=== PATIENT | female | born 2000 | race Caucasian/White ===

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

== ENCOUNTER 2020-04-10 17:25 | Emergency (ER) | payer MEDICAID, SELFPAY ==
[2020-04-10 18:05] VITALS: BP 104/57; PULSE 74; RESP 16; TEMP 36.9; O2SAT 99; BMI 18.8
[2020-04-10 18:40] LABS: Basophils # 0.1 10^3/uL (0.0-0.1); Basophils % 0.4 %; Eosinophils # 0.1 10^3/uL (0.0-0.8); Eosinophils % 0.7 %; Hematocrit 39.3 % (37.0-47.0); Hemoglobin 13.1 g/dL (11.5-15.3); Lymphocytes # 2.3 10^3/uL (1.5-6.5); Lymphocytes % 18.5 %; Mean Corpuscular HGB Conc 33.3 g/dL (30.0-36.0); Mean Corpuscular Hemoglobin 28.2 pg (28.0-34.0); Mean Corpuscular Volume 84.5 fL (81-99); Mean Platelet Volume 10.7 fL (7.4-10.4); Monocytes # 1.2 10^3/uL (0.2-0.9); Monocytes % 9.5 %; Neutrophils % 70.4 %; Nucleated Red Blood Cells % 0 %; Platelet Count 222 10^3/cmm (130-400); Red Blood Count 4.65 10^6/uL (4.1-5.3); Red Cell Distribution Width 11.9 % (12.1-15.1); White Blood Count 12.5 10^3/uL (4.5-13.0)
--- NOTE | 2020-04-10 18:41 | US_ITS ---
WS: [id number] EARLY OBSTETRICAL ULTRASOUND (<14 WEEKS). HISTORY: with abd pain COMPARISON: None available. Single intrauterine gestational sac is identified. Cardiac activity at 167 BPM. [place]-rump length dejuan sures 1.9 cm which corresponds to a gestation of 8 weeks 3 days. Normal-appearing yolk sac and amnion demonstrated. No subchorionic hemorrhage. No free fluid. Normal size ovaries with no mass. US/US OB <= 14 weeks fetus [id number] IMPRESSION: 1. Single intrauterine gestation of 8 weeks 3 days with an EDC of 11/17/2020. 2. No complications.
[2020-04-10 19:19] LABS: Alanine Aminotransferase 11 U/L (0-33); Albumin Level 4.2 g/dL (3.5-5.2); Alkaline Phosphatase 37 IU/L (35-105); Anion Gap 12.1 (5-19); Aspartate Amino Transferase 16 U/L (0-32); Blood Urea Nitrogen 8 mg/dL (6-20); Calcium 9.2 mg/dL (8.5-10.5); Carbon Dioxide 23 mmol/L (22-29); Chloride 101 mmol/L (98-107); Globulin 2.6 g/dL (1.3-4.6); Glomerular Filtration Rate 128.8 mL/min (90-130); Glucose 107 mg/dL (65-115); Osmolality Calculated 272 mOsm/kg (285-295); Potassium 3.1 mmol/L (3.5-5.1); Sodium 133 mmol/L (136-145); Total Bilirubin 0.3 mg/dL (0.15-1.2); Total Protein 6.8 g/dL (6.6-8.7)
--- NOTE | 2020-04-10 20:06 | ED_ITS ---
HPI - Abdominal Pain General: Chief Complaint: Abdominal Pain Stated Complaint: abd pain/preg Time Seen by Provider: 04/10/20 19:59 History of Present Illness: HPI narrative: This patient is a 19-year-old female who comes in with her first . She took some home tests which were positive and also had a confirmed at the [facility] department. She does not know how far along she is but her last period was sometime in February. She came in today because she is having some discomfort on her flanks. She has had no bleeding, no vaginal discharge, no urinary symptoms. She has had some nausea and vomiting off and on. MD elicited complaint: flank pain Pertinent past history: none Onset (ago): day(s) (3) Pain Consistency: intermittent Location: L flank and R flank Severity: mild Quality: aching Associated Symptoms: Reports nausea and vomiting Related Data: Date of Last Menstrual Period: 02/14/20 Review of Systems General: Reports: 10 or more systems reviewed and unremarkable except in HPI and below GI: Reports: abdominal pain, nausea and vomiting : Reports: amenorrhea PFS ED PFSH: Social History Smoking and tobacco status: never smoked Female Reproductive History: Date of last menstrual period: 02/14/20 Physical Exam Const: COMMON NORMALS: no acute distress, patient oriented x3, no limitations and alert GENERAL APPEARANCE: cooperative and comfortable HENMT: HEAD & SCALP: normal to inspection FACE & SINUS: normal facial exam Eye: GENERAL EYE: appearance normal, both eyes and all related structures Neck/C-Spine: COMMON NORMALS: supple, no meningeal signs and no JVD Chest: COMMONS NORMALS: normal inspection of the chest Resp: COMMON NORMALS: normal respiratory effort, No use of accessory muscles and clear to auscultation bilaterally AUSCULTATION: clear to auscultation bilaterally Cardio: COMMON NORMALS: no JVD, regular rate, regular rhythm and No murmurs present (Cardio) RATE: regular rate RHYTHM: regular rhythm GI: COMMON NORMALS: Normal to inspection, nondistended, normoactive bowel sounds present, Soft to palpation and non-tender INSPECTION: Yes normal to inspection AUSCULTATION: Yes normoactive bowel sounds PALPATION: Yes Soft to palpation Back/Pelvis: COMMON NORMALS: thoracic and lumbar spine normal to inspection Extremity: COMMON NORMALS: normal to inspection Neuro: COMMON NORMALS: patient oriented x3, moves all extremities, no focal motor deficits and no sensory deficits noted SENSORIUM/ORIENTATION: Yes alert MENINGEAL SIGNS: Yes no meningeal signs Psych: COMMON NORMALS: mental status grossly normal, cooperative and normal affect Skin: COMMON NORMALS: no rashes or lesions noted and turgor normal GENERAL SKIN EXAM: no rashes or lesions noted and turgor normal Course ED course: Work-up is negative. Blood type is positive. Ultrasound shows a 8-week 3-day IUP. Patient was reassured and given OB follow-up. Vital Signs: Vital signs: Vital Signs Temperature 98.4 F 04/10/20 18:05 Pulse Rate 88 04/10/20 20:48 Respiratory Rate 18 04/10/20 20:48 Blood Pressure 107/58 04/10/20 20:48 Pulse Oximetry 98 04/10/20 20:48 MDM - Abdominal Pain Lab Data: Labs: Lab Results 04/10/20 04/10/20 04/10/20 Range/Units 18:30 18:30 18:30 WBC 12.5 (4.5-13.0) 10^3/ uL RBC 4.65 (4.1-5.3) 10^6/u L Hgb 13.1 (11.5-15.3) g/dL Hct 39.3 (37.0-47.0) % MCV 84.5 (81-99) fL MCH 28.2 (28.0-34.0) pg MCHC 33.3 (30.0-36.0) g/dL RDW 11.9 L (12.1-15.1) % Plt Count 222 (130-400) 10^3/c mm MPV 10.7 H (7.4-10.4) fL Neut % (Auto) 70.4 % Lymph % (Auto) 18.5 % [place] % (Auto) 9.5 % Eos % (Auto) 0.7 % Baso % (Auto) 0.4 % Neut # (Auto) 8.80 H (1.8-8.0) 10^3/u L Lymph # (Auto) 2.3 (1.5-6.5) 10^3/u L [place] # (Auto) 1.2 H (0.2-0.9) 10^3/u L Eos # (Auto) 0.1 (0.0-0.8) 10^3/u L Baso # (Auto) 0.1 (0.0-0.1) 10^3/u L Nucleated RBC % (a uto) 0 % Nucleated RBCs # 0.0 /100WBC Sodium 133 L (136-145) mmol/L Potassium 3.1 L (3.5-5.1) mmol/L Chloride 101 (98-107) mmol/L Carbon Dioxide 23 (22-29) mmol/L Anion Gap 12.1 (5-19) BUN 8 (6-20) mg/dL Creatinine 0.6 (0.5-0.9) mg/dL GFR Calculation 128.8 (90-130) mL/min Glucose 107 (65-115) mg/dL Calculated Osmolal ity 272 L (285-295) mOsm/k g Calcium 9.2 (8.5-10.5) mg/dL Total Bilirubin 0.3 (0.15-1.2) mg/dL AST 16 (0-32) U/L ALT 11 (0-33) U/L Alkaline Phosphata se 37 (35-105) IU/L Total Protein 6.8 (6.6-8.7) g/dL Albumin 4.2 (3.5-5.2) g/dL Globulin 2.6 (1.3-4.6) g/dL Ser , [place]Qnt 09922.00 mIU/mL Urine Color (Yellow) Urine Appearance (CLEAR) Urine pH (5-7) Ur Specific Gravit y (1.005-1.030) Urine Protein (Negative) Urine Glucose (UA) (Normal) Urine Ketones (Negative) Urine Blood (Negative) Urine Nitrate (Negative) Urine Bilirubin (NEGATIVE) Urine Urobilinogen (Negative) mg/dL Ur Leukocyte Bisi ase (Negative) Urine RBC (0-2) /hpf Urine WBC (0-5) /hpf Ur Squamous Epith Cells (0-5) Amorphous Sediment Urine Bacteria (NONE) Blood Type O Positive Rho(D) Type Positive 04/10/20 Range/Units 20:51 WBC (4.5-13.0) 10^3/ uL RBC (4.1-5.3) 10^6/u L Hgb (11.5-15.3) g/dL Hct (37.0-47.0) % MCV (81-99) fL MCH (28.0-34.0) pg MCHC (30.0-36.0) g/dL RDW (12.1-15.1) % Plt Count (130-400) 10^3/c mm MPV (7.4-10.4) fL Neut % (Auto) % Lymph % (Auto) % [place] % (Auto) % Eos % (Auto) % Baso % (Auto) % Neut # (Auto) (1.8-8.0) 10^3/u L Lymph # (Auto) (1.5-6.5) 10^3/u L [place] # (Auto) (0.2-0.9) 10^3/u L Eos # (Auto) (0.0-0.8) 10^3/u L Baso # (Auto) (0.0-0.1) 10^3/u L Nucleated RBC % (a uto) % Nucleated RBCs # /100WBC Sodium (136-145) mmol/L Potassium (3.5-5.1) mmol/L Chloride (98-107) mmol/L Carbon Dioxide (22-29) mmol/L Anion Gap (5-19) BUN (6-20) mg/dL Creatinine (0.5-0.9) mg/dL GFR Calculation (90-130) mL/min Glucose (65-115) mg/dL Calculated Osmolal ity (285-295) mOsm/k g Calcium (8.5-10.5) mg/dL Total Bilirubin (0.15-1.2) mg/dL AST (0-32) U/L ALT (0-33) U/L Alkaline Phosphata se (35-105) IU/L Total Protein (6.6-8.7) g/dL Albumin (3.5-5.2) g/dL Globulin (1.3-4.6) g/dL Ser , [place] i-Qnt mIU/mL Urine Color Yellow (Yellow) Urine Appearance Cloudy (CLEAR) Urine pH 7 (5-7) Ur Specific Gravit y 1.010 (1.005-1.030) Urine Protein Neg (Negative) Urine Glucose (UA) Norm (Normal) Urine Ketones Negative (Negative) Urine Blood Neg (Negative) Urine Nitrate Negative (Negative) Urine Bilirubin Neg (NEGATIVE) Urine Urobilinogen Norm (Negative) mg/dL Ur Leukocyte Bisi ase Negative (Negative) Urine RBC Rare (0-2) /hpf Urine WBC Rare (0-5) /hpf Ur Squamous Epith Cells 0-4 H (0-5) Amorphous Sediment 1+ Urine Bacteria 1+ H (NONE) Blood Type Rho(D) Type Discharge Plan Discharge Patient Disposition: Home Clinical Impression: Qualifiers: Weeks of gestation: 8 weeks Qualified Code(s): Z3A.08 - 8 weeks gestation of Condition: Stable Prescriptions: No Action 28 mg iron- 800 mcg Tablet 1 tab PO DAILY RF: 0 Discharge Orders: Discharge Order (Routine); Ordered 04/10/20 Ordered By: Rianna Berry Referrals: Karma Avila MD [Primary Care Provider] - Fernando Barreto MD [Physician] - 7-10 days Discharge Diet: Usual diet Discharge Activity: Resume usual activity Patient Instructions: (ED) Activity Restrictions/Additional Instructions: You are 8 weeks and 3 days . This makes your due date November 18, 2020. You should follow-up with the [facility] soon as possible. They typically like your first visit to be at around 8 weeks. Return to the ED if increased pain or bleeding. Continue vitamins and a healthy diet. Discharge Date/Time: 04/10/20 21:47 Coding Level of Care Code ED Induction Coordination Engineer for Logan Fwd Exam Comprehensive
[2020-04-10 20:48] VITALS: BP 107/58; PULSE 88; RESP 18; O2SAT 98
[2020-04-10 21:41] LABS: Add Urine Microscopic? YES; Amorphous Sediment Urine 1+; Bacteria Urine 1+; Bilirubin Urine Neg (NEGATIVE); Blood Urine Neg (Negative); Glucose Urine UA Norm (Normal); Ketones Urine Negative (Negative); Leukocyte Esterase Urine Negative (Negative); Nitrate Urine Negative (Negative); Protein Urine Neg (Negative); RBC Urine RARE /hpf (0-2); Squamous Epithelial Cell Urine 0-4 (0-5); Urine Appearance Cloudy (CLEAR); Urine Color Yellow (Yellow); Urobilinogen Urine Norm (Negative); WBC Urine RARE /hpf (0-5); pH Urine 7 (5-7)
== END 2020-04-10 21:47 | disposition home or self-care (01) ==
PROVIDERS: Nurse Practitioner Family; Emergency Provider Emergency Medicine; PCP Family Medicine
DX: O26.891 Other specified pregnancy related conditions, first trimester (principal); R10.9 Unspecified abdominal pain; Z3A.08 8 weeks gestation of pregnancy
CPT/HCPCS: 12345; 36415; 76801; 80053; 81001; 84702; 85025; 86900; 99282; 99283

== ENCOUNTER 2020-10-24 01:20 | Outpatient (CLI) | payer OTHER, SELFPAY ==
[2020-10-24] VITALS (25 sets, daily range): BP systolic 115–136; BP diastolic 56–76; PULSE 59–88; RESP 16–20; TEMP 36.6–36.8; BMI 23.1
[2020-10-24 02:34] LABS: Bilirubin Urine Neg (Negative); Blood Urine Neg (Negative); Glucose Urine UA Norm (Normal); Ketones Urine Negative (Negative); Nitrate Urine Negative (Negative); Protein Urine Neg (Negative); Urine Appearance Cloudy (CLEAR); Urine Color Yellow (Yellow); Urobilinogen Urine Norm (Negative); pH Urine 6.5 (5-7)
[2020-10-24 02:35] LABS: Leukocyte Esterase Urine 2+ (Negative)
[2020-10-24 02:52] LABS: Add Urine Culture? No; Bacteria Urine 3+ /hpf; RBC Urine 0-4 /hpf (0-2); Squamous Epithelial Cell Urine 25-40 /hpf (0-5); WBC Urine 40-55 /hpf (0-5)
--- NOTE | 2020-10-24 07:56 | PC.NURSE ---
Pt up to restroom. When pt returns to bed she has episode of nausea and scant yellow bile emesis. Pt reports, when the baby gets hungry I get nauseas and throw up. Pt reports she hasn't had anything to eat since 6:00 last night.
--- NOTE | 2020-10-24 08:48 | PC.NURSE ---
This nurse call prescription to [facility] pharmacy. 500 mg Keflex PO TID for 7 days; no refills.
[2020-10-24] MEDS: cephALEXin 500 mg Capsule PO (09:04)
== END 2020-10-24 09:00 | disposition home or self-care (01) ==
LOC: OPOB 01:23 → OBGYN 01:25
PROVIDERS: PCP Family Medicine; Visit Provider Family Medicine
DX: O26.899 Other specified pregnancy related conditions, unspecified trimester (principal); Z3A.00 Weeks of gestation of pregnancy not specified; R10.9 Unspecified abdominal pain
CPT/HCPCS: 59025; 81001; 99211

== ENCOUNTER 2020-10-27 00:26 | Inpatient (IN) | payer OTHER, BC, MEDICAID, SELFPAY ==
[2020-10-27] VITALS (202 sets, daily range): BP systolic 116–177; BP diastolic 60–95; PULSE 75–134; RESP 15–18; TEMP 36.7–37.1; O2SAT 92–99; BMI 23.1
[2020-10-27] MEDS: lactated ringers 1,000 ML 999 ML IV (00:48)
[2020-10-27] MEDS: ampicillin 2,000 MG in sodium chloride 0.9% (plus) 50 ML 100 MG IV (00:49)
[2020-10-27 01:31] LABS: Basophils % 0.3 %; Eosinophils # 0.1 10^3/uL (0.0-0.8); Eosinophils % 0.5 %; Hematocrit 38.8 % (37.0-47.0); Hemoglobin 12.8 g/dL (11.5-15.3); Lymphocytes # 1.7 10^3/uL (1.5-6.5); Lymphocytes % 10.8 %; Mean Corpuscular Hemoglobin 27.1 pg (28.0-34.0); Mean Platelet Volume 11.1 fL (7.4-10.4); Monocytes # 1.6 10^3/uL (0.2-0.9); Monocytes % 10.3 %; Neutrophils % 77.5 %; Nucleated Red Blood Cells % 0 %; Platelet Count 269 10^3/cmm (130-400); Red Blood Count 4.73 10^6/uL (4.1-5.3); Red Cell Distribution Width 12.3 % (12.1-15.1); White Blood Count 15.6 10^3/uL (4.5-13.0)
[2020-10-27] MEDS: fentaNYL 50 mcg/mL INJ 2mL IV ×6 (02:03→12:28)
[2020-10-27] MEDS: dextrose 5%-lactated ringers 1,000 ML 125 ML IV ×2 (02:47→11:26)
--- NOTE | 2020-10-27 03:29 | ANES.PROC ---
Anesthesia Procedures Procedure/Date: 10/27/20 LABOR EPIDURAL Procedure Narrative: HX REVIEWED WITH PATIENT, NO PERTINENT HX. RISKS AND BENEFITS DISCUSSED. PT WISHES TO PROCEED. Epidural: Time Out Performed: Yes Consents Signed: Procedure Consent Consent: from patient, risks and benefits reviewed and patient agrees to proceed Lumbar Level: L2-L3 Epidural position: sitting Epidural procedure: sterile prep of area, 1% lidocaine to numb the area, 18 g needle, neg for paresthesia, test dose given, 1.5% xylocaine 1:200k epi (3 ML), 0.2% Ropivacaine bolus ml (5ML), placed PCEA, no systemic response, sterile dressing applied, L.U.D. no apparent complications and 0.2% Ropiavacaine @ mls/hr (11)
--- NOTE | 2020-10-27 04:50 | PC.NURSE ---
Called Maren Kessler CRNA and notified that there was leaking noted under the dressing, out onto the belly band and on the bed, patient reporting that she is still getting relief from epidural at this time. FEI Kessler orders to continue to monitor for pain relief, if patient reports that she is starting to feel pain again call BUILDING ASSOCIATE back and she will come to unit to redo epidural placement.
[2020-10-27] MEDS: ampicillin 1,000 MG in sodium chloride 0.9% (plus) 50 ML 100 MG IV ×3 (04:59→12:29)
[2020-10-27] MEDS: phenazopyridine 100 mg Tablet PO ×2 (04:59→17:04)
[2020-10-27] MEDS: oxytocin 30 UNIT/500 ML BAG IV (10:28)
--- NOTE | 2020-10-27 12:53 | ANES.PROC ---
Anesthesia Procedures Procedure/Date: 10/27/20 Other Information: Called for increased pelvic pressure/discomfort. Pt 5 cm dilated. Lido 2% 5cc and 100 mcg Fentanyl given with pt expressing relief.
[2020-10-27] MEDS: ibuprofen 800 mg tablet PO ×2 (15:36→20:56)
--- NOTE | 2020-10-27 16:15 | PC.NURSE ---
pt up to bathroom with assist. void large amount(missed hat) aleshia care discussed and demonstrated. pt then back to bed
[2020-10-27] MEDS: benzocaine-menthol 78 gm Canister 1 SPRAY TOPICAL (16:23)
[2020-10-27] MEDS: docusate sodium 100 mg Capsule PO (17:04)
[2020-10-27] MEDS: HYDROcodone-acetaminophen 5-325 mg Tablet PO (17:04)
--- NOTE | 2020-10-27 17:32 | PM.DELIVERY ---
Delivery Note: Date of delivery: October 27, 2020 Pre-Delivery Course: The patient presented to the hospital the day of delivery. She is noted to have consistent contractions they are happening every 2 to 3 minutes and had had cervical change since her previous visit to the hospital. An amniotomy was performed. An epidural was placed. She progressed to complete without difficulty. She was on GBS protocol due to the gestational age of the . Delivery: DELIVERY: The patient progressed to complete without difficulty. She delivered a male with a weight of 6 pounds 1 ounce with Apgars of 8, 9. The baby was delivered from the SILVINA position. The baby was then completely delivered and placed on the mother's abdomen. The cord was then clamped and cut. There was no nuchal cord. There was no meconium. The placenta and 3 vessel cord were delivered intact shortly thereafter. The perineum and vaginal vault were carefully examined. There were some superficial vaginal lacerations noted but they did not require repair. Both the mother and the baby were in stable condition. A&P Assessment and plan (1) 36 weeks gestation of : I anticipate routine care. Status: Acute (2) Spontaneous vaginal delivery: Status: Acute Coding Level of Care Code Acute Land Examiner for Chg Fwd Diagnoses 36 weeks gestation of Z3A.36 Spontaneous vaginal delivery O80
[2020-10-27] MEDS: cephALEXin 500 mg Capsule PO (20:57)
[2020-10-28] VITALS: RESP 18; TEMP 36.4
[2020-10-28 00:12] VITALS: BP 119/59; PULSE 75
[2020-10-28 02:17] LABS: Hematocrit 32.9 % (37.0-47.0); Hemoglobin 10.8 g/dL (11.5-15.3); Mean Corpuscular HGB Conc 32.8 g/dL (30.0-36.0); Mean Corpuscular Hemoglobin 27.3 pg (28.0-34.0); Mean Corpuscular Volume 83.1 fL (81-99); Mean Platelet Volume 10.3 fL (7.4-10.4); Platelet Count 203 10^3/cmm (130-400); Red Blood Count 3.96 10^6/uL (4.1-5.3); Red Cell Distribution Width 12.5 % (12.1-15.1); White Blood Count 16.3 10^3/uL (4.5-13.0)
--- NOTE | 2020-10-28 04:02 | P.DS_ITS ---
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 An amniotomy was performed. She had an epidural placed. She progressed to complete without difficulty. Her vaginal delivery was also unremarkable. Her course has gone smoothly as well. She has had appropriate bleeding. Her pain has been well controlled. She has bottle-fed her baby. Information Peripartum Data: Infant Delivery Method: Vaginal Physical Exam Narrative: EXAM NARRATIVE: The patient is alert. She appears comfortable. Her heart has a regular rate and rhythm with no murmurs appreciated. Lungs are clear to auscultation bilaterally. Her fundus is firm and below the umbilicus. Urinary Catheter Management^: Holguin Latex: Cath Placed During This Visit: yes, but has since been removed by the nurse Reason for Continuing Indwelling Catheter: Decision to DC Catheter Urinary Catheter Date of Insertion: 10/27/20 Urinary Catheter Time of Insertion: 04:06 Date Urinary Catheter Removed: 10/27/20 Time Urinary Catheter Discontinued: 13:25 Discharge Data Data Completed and Pending: Labs from last 24 hours 10/28/20 02:09 WBC 16.3 H RBC 3.96 L Hgb 10.8 L Hct 32.9 L MCV 83.1 MCH 27.3 L MCHC 32.8 RDW 12.5 Plt Count 203 MPV 10.3 Vitals: Last Vital Signs Temp 97.5 F L 10/28/20 00:00 Pulse 75 10/28/20 00:12 Resp 18 10/28/20 00:00 BP 119/59 10/28/20 00:12 Pulse Ox 97 10/27/20 13:27 Discharge Plan Discharge Patient Disposition: Home Condition: Stable Prescriptions: New ibuprofen 800 mg Tablet 800 mg PO TID Qty: 45 RF: 0 Continued PNV cmb#95-ferrous fumarate-FA [] 28 mg iron- 800 mcg Tablet 1 tab PO DAILY RF: 0 Discharge Orders: Discharge Order (Routine); Ordered 10/28/20 Ordered By: Mark Galdamez Referrals: Mark Galdamez MD [Physician] - 6 Weeks Discharge Diet: Usual diet Discharge Activity: Limit activity as instructed Discharge Attestations 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
[2020-10-28 04:40] VITALS: BP 132/70; PULSE 75; TEMP 37.1
[2020-10-28] MEDS: HYDROcodone-acetaminophen 5-325 mg Tablet PO (06:33)
[2020-10-28] MEDS: ibuprofen 800 mg tablet PO ×2 (10:11→15:17)
[2020-10-28] MEDS: prenatal vitamin Capsule 1 CAP PO (10:11)
[2020-10-28] MEDS: cephALEXin 500 mg Capsule PO ×2 (10:11→15:17)
[2020-10-28] MEDS: docusate sodium 100 mg Capsule PO (10:11)
[2020-10-28 10:14] VITALS: BP 125/78; PULSE 90
[2020-10-28 16:30] VITALS: BP 132/78; PULSE 102
[2020-10-28 16:31] VITALS: BP 132/78; PULSE 102
== END 2020-10-28 16:32 | disposition home or self-care (01) | DRG 807 ==
LOC: OPOB 00:26 → OBGYN 00:26
PROVIDERS: Admitting Provider Family Medicine; PCP Family Medicine; Visit Provider Family Medicine
DX: O80 Encounter for full-term uncomplicated delivery (principal); Z37.0 Single live birth; Z3A.36 36 weeks gestation of pregnancy
CPT/HCPCS: 12345; 36415; 51702; 59025; 59409; 85025; 85027; 99211; J0290; J2795; J3010

== ENCOUNTER 2020-11-27 07:41 | Inpatient (IN) | payer OTHER, BC, MEDICAID, SELFPAY ==
[2020-11-27] VITALS (14 sets, daily range): BP systolic 97–128; BP diastolic 60–72; PULSE 60–118; RESP 15–20; TEMP 36.4–37.1; O2SAT 95–98; BMI 18.8
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
[2020-11-27 08:35] LABS: Basophils # 0.1 10^3/uL (0.0-0.1); Basophils % 0.4 %; Eosinophils % 0.3 %; Hematocrit 45.3 % (37.0-47.0); Hemoglobin 14.5 g/dL (11.5-15.3); Lymphocytes # 1.2 10^3/uL (1.5-6.5); Lymphocytes % 8.5 %; Mean Corpuscular Hemoglobin 26.4 pg (28.0-34.0); Mean Corpuscular Volume 82.4 fL (81-99); Mean Platelet Volume 10.8 fL (7.4-10.4); Monocytes # 0.8 10^3/uL (0.2-0.9); Monocytes % 5.6 %; Neutrophils # 11.72 10^3/uL (1.8-8.0); Neutrophils % 84.8 %; Nucleated Red Blood Cells % 0 %; Platelet Count 242 10^3/cmm (130-400); Red Cell Distribution Width 12.7 % (12.1-15.1); White Blood Count 13.8 10^3/uL (4.5-13.0)
[2020-11-27] MEDS: ondansetron 2 mg/ML SDV 2 mL 4 MG IVP ×2 (08:36→10:47)
[2020-11-27 08:48] LABS: Urine Appearance SL Hazy (CLEAR); Urine Color Yellow (Yellow)
[2020-11-27 08:49] LABS: Add Urine Microscopic? YES; Bilirubin Urine Neg (Negative); Blood Urine Neg (Negative); Glucose Urine UA Norm (Normal); Ketones Urine Negative (Negative); Leukocyte Esterase Urine 2+ (Negative); Nitrate Urine Negative (Negative); Protein Urine Trace (Negative); Urobilinogen Urine Norm (Negative); pH Urine 5 (5-7)
[2020-11-27 08:55] LABS: Alanine Aminotransferase 34 U/L (0-33); Albumin Level 4.3 g/dL (3.5-5.2); Alkaline Phosphatase 77 IU/L (35-105); Anion Gap 16.1 (5-19); Aspartate Amino Transferase 26 U/L (0-32); Blood Urea Nitrogen 10 mg/dL (6-20); Calcium 9.7 mg/dL (8.5-10.5); Carbon Dioxide 25 mmol/L (22-29); Chloride 103 mmol/L (98-107); Globulin 3.5 g/dL (1.3-4.6); Glomerular Filtration Rate 107.8 mL/min (90-130); Glucose 140 mg/dL (65-115); Lipase 17 U/L (13-60); Osmolality Calculated 291 mOsm/kg (285-295); Potassium 4.1 mmol/L (3.5-5.1); Sodium 140 mmol/L (136-145); Total Bilirubin 0.4 mg/dL (0.15-1.2); Total Protein 7.8 g/dL (6.6-8.7)
[2020-11-27 08:56] LABS: Lactic Sepsis W/Reflex 1.5 mmol/L (0.5-2.2)
[2020-11-27 08:57] LABS: Add Urine Culture? No; Bacteria Urine 2+ /hpf; Squamous Epithelial Cell Urine 25-40 /hpf (0-5); WBC Urine 25-40 /hpf (0-5)
[2020-11-27 09:49] LABS: Add Urine Microscopic? NO
[2020-11-27] MEDS: metoclopramide 5 mg/mL SDV 2 mL IVP (09:55)
[2020-11-27 09:58] LABS: Bilirubin Urine Neg (Negative); Blood Urine Neg (Negative); Glucose Urine UA Norm (Normal); Ketones Urine Negative (Negative); Leukocyte Esterase Urine Negative (Negative); Nitrate Urine Negative (Negative); Protein Urine Neg (Negative); Specific Gravity, Urine 1.015 (1.005-1.030); Urine Appearance Clear (CLEAR); Urine Color Yellow (Yellow); Urobilinogen Urine Norm (Negative); pH Urine 5 (5-7)
[2020-11-27] MEDS: lidocaine 2% viscous 15 ML, aluminum-mag hydrox-simethicon 30 ML, sucralfate oral liq 1 GM PO (10:18)
--- NOTE | 2020-11-27 10:19 | CT_ITS ---
WS: [id number] CT ABDOMEN AND PELVIS WITH CONTRAST HISTORY: abdominal pain, guarding TECHNIQUE: Imaging performed of the abdomen and pelvis with IV contrast. Single phase imaging of the abdomen. Coronal and sagittal reformats are submitted. All CT scans at [facility] use at least one of these dose optimization techniques: automated exposure control; mA and/or kV adjustment per patient size (includes targeted exams where dose is matched to clinical indication); or iterativ e reconstruction. IV CONTRAST: Omnipaque 300; 95 mL IV. Oral contrast: No DLP: 983.2 mGy.cm COMPARISON: 10/12/2016 Lower thorax: Stable area of nodularity in the medial RIGHT lower lung field. Heart is normal size. N o hiatal hernia. Liver/biliary system: Normal size with no intrahepatic dilatation. Gallbladder: Normal. No gallstones or wall thickening. No pericholecystic fluid. Pancreas: Normal. Spleen: Normal. Adrenal glands: Normal. Right kidney: Normal. Left kidney: Normal. Aorta: Normal. Lymphadenopathy: None. Free fluid: None. GI tract: Markedly dilated proximal and mid small bowel loops. Transition point in the mid small roxane l. There is twisting of the mesentery and possible of volvulus. Rotation of the central mesentery wit h focal area of significant change in caliber of the small bowel. The appendix is partially visualize d but does appear normal. Small bowel loops measure up to 3 cm. There are additional surgical clips i n the LEFT upper quadrant from prior colonic surgery. Distal colon is collapsed. Proximal colon conta ins fecal material. There is a large amount of mesenteric stranding centrally at the site of the mese nteric twisting. Abdominal wall: Unremarkable abdominal wall. No hernia. Pelvis: Slightly retroflexed uterus. Minimal amount of fluid distending the endometrium. There is a s mall RIGHT ovarian cyst measuring up to 1.8 cm. Bones: Unremarkable. CT/CT abdomen pelvis w con* [id number] IMPRESSION: 1. High-grade small bowel obstruction with a transition point in the central s mall bowel there is twisting of the mesentery with extensive mesenteric edema a nd stranding. This may be an internal hernia or volvulus. Recommend surgical ev aluation. 2. No free air at this time but there is marked distention of the small bowel. 3. There are additional surgical sutures in the LEFT upper quadrant from prior colonic surgery. 4. Normal appendix
[2020-11-27] MEDS: morphine 4 mg/mL SDV 1 mL IVP (10:47)
[2020-11-27] MEDS: iohexol 300 mg/mL 100 mL Btl IV (10:54)
--- NOTE | 2020-11-27 12:15 | PC.NURSE ---
NG tube placed in right nare. Pt tolerated well. Yellow milky white liquid in canister.
--- NOTE | 2020-11-27 12:31 | XR_ITS ---
WS: [id number] Exam: XR chest 1V portable [id number] Date/Time of Exam: 11/27/2020 12:31 PM Reason For Exam: for ng tube placement Comparison 09/11/2019. An NG tube is looped in the stomach. The tip is directed back slightly below the expected region of t he GE junction. The lungs are clear and fully expanded. Normal cardiomediastinal structures and bony elements. XR/XR chest 1V portable [id number] IMPRESSION: 1. NG tube is looped in the stomach with the tip probably just below the region of the GE junction. 2. The chest is otherwise normal.
--- NOTE | 2020-11-27 13:06 | PC.NURSE ---
Attempted to call report at this time. Told patients nurse and charge nurse was busy and unable to take report at this time. Will attempt to call again shortly.
--- NOTE | 2020-11-27 13:19 | PC.NURSE ---
Attempt to call report, was asked if she could call me back. I agreed. Jennifer VENEGAS stated she tried calling report and was not able to give report
[2020-11-27] MEDS: sodium chloride 0.9% 1,000 ML 100 ML IV (14:55)
[2020-11-27] MEDS: famotidine 20 mg/2 mL INJ IVP (15:58)
[2020-11-27] MEDS: D5-NS 0.45% + KCL 20 mEq 20 MEQ/1,000 ML BAG 100 MEQ IV (15:58)
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
[2020-11-27] MEDS: morphine 4 mg/mL SDV 1 mL 3 MG IVP (21:31)
--- NOTE | 2020-11-27 22:30 | PC.NURSE ---
Patients ng tube advanced 3 inches, hooked to low intermittent suction with immediate return of 150 ml light yellow clear fluid.
[2020-11-28] VITALS: BP 111/65; PULSE 68; RESP 18; TEMP 36.4; O2SAT 96
[2020-11-28] MEDS: D5-NS 0.45% + KCL 20 mEq 20 MEQ/1,000 ML BAG 100 MEQ IV ×2 (01:42→14:20)
[2020-11-28] MEDS: famotidine 20 mg/2 mL INJ IVP ×2 (03:24→14:21)
[2020-11-28 04:00] VITALS: BP 102/60; PULSE 81; RESP 18; TEMP 36.6; O2SAT 98
[2020-11-28] MEDS: enoxaparin 40 mg/0.4 mL Syringe SUBCUT (05:54)
--- NOTE | 2020-11-28 06:00 | XR_ITS ---
WS: [id number] Exam: XR abdomen min 2V [id number] Date/Time of Exam: 11/28/2020 6:00 AM Reason For Exam: sbo There are several moderately dilated small bowel loops in the mid and lower left abdomen suggesting a t least partial or incomplete small bowel obstruction. There is gas and stool in the colon. An NG tub e is looped in the stomach. The tip of the tube is probably near the gastric antrum. Visualized organ margins are intact. No free air. Bony structures are intact. XR/XR abdomen min 2V [id number] IMPRESSION: 1. Dilated small bowel loops in the central and left lower abdomen suggesting p artial or incomplete small bowel obstruction. There is a scattered gas and stoo l in the colon. 2. NG tube looped in the stomach.
[2020-11-28 06:15] LABS: Basophils % 0.5 %; Eosinophils # 0.2 10^3/uL (0.0-0.8); Eosinophils % 2.2 %; Hematocrit 38.6 % (37.0-47.0); Hemoglobin 12.2 g/dL (11.5-15.3); Lymphocytes # 1.8 10^3/uL (1.5-6.5); Lymphocytes % 21.5 %; Mean Corpuscular HGB Conc 31.6 g/dL (30.0-36.0); Mean Corpuscular Hemoglobin 26.9 pg (28.0-34.0); Mean Platelet Volume 11.1 fL (7.4-10.4); Monocytes # 1.2 10^3/uL (0.2-0.9); Monocytes % 13.7 %; Neutrophils # 5.18 10^3/uL (1.8-8.0); Neutrophils % 61.9 %; Nucleated Red Blood Cells % 0 %; Platelet Count 209 10^3/cmm (130-400); Red Blood Count 4.54 10^6/uL (4.1-5.3); Red Cell Distribution Width 13.3 % (12.1-15.1); White Blood Count 8.4 10^3/uL (4.5-13.0)
[2020-11-28 06:42] LABS: Anion Gap 9.5 (5-19); Blood Urea Nitrogen 4 mg/dL (6-20); Calcium 7.9 mg/dL (8.5-10.5); Carbon Dioxide 27 mmol/L (22-29); Chloride 107 mmol/L (98-107); Glomerular Filtration Rate 128.8 mL/min (90-130); Glucose 96 mg/dL (65-115); Osmolality Calculated 287 mOsm/kg (285-295); Potassium 3.5 mmol/L (3.5-5.1); Sodium 140 mmol/L (136-145)
[2020-11-28 07:47] VITALS: BP 109/60; PULSE 60; RESP 16; TEMP 36.7; O2SAT 97
--- NOTE | 2020-11-28 10:39 | PM.PN ---
Subjective Subjective: Interval history: Patient has been doing well denies any significant pain, no nausea or vomiting, no significant NG output. No flatus or BM Vitals/I&O/Wt Last Vital Signs Temp 98.0 F 11/28/20 07:47 Pulse 60 11/28/20 07:47 Resp 16 11/28/20 07:47 BP 109/60 11/28/20 07:47 Pulse Ox 97 11/28/20 07:47 11/27/20 11/28/20 11/28/20 22:59 06:59 14:59 Intake Total 110 / 2082.333 973.333 / 2082.333 Output Total 120 / 120 Balance 110 1962.333 853.333 / 1962.333 Weight last 48 hrs Weight 110 lb Physical Exam Narrative: EXAM NARRATIVE: Abdomen: Soft, mildly distended, minimally tender, no guarding or rigidity Data : 11/28/20 05:19 11/28/20 05:19 A&P Assessment and plan (1) Bowel obstruction: 19-year-old female who presents with abdominal pain nausea and vomiting, status post prior laparotomy. CT scan findings suggestive of partial small bowel obstruction. Patient currently hemodynamically stable with no evidence of peritonitis. Abdominal series today showed air within the colon Milk of molasses enema today 1 bottle magnesium citrate Clamp NG tube Start clear liquid diet Lactulose 15 cc p.o. twice daily Patient will need 1 more night of inpatient stay to ensure resolution of obstruction Status: Acute Qualifiers: Intestinal obstruction extent: complete Intestinal obstruction type: unspecified Qualified Code(s): K56.601 - Complete intestinal obstruction, unspecified as to cause Attestations Medical Necessity Statement*: Small bowel obstruction requiring continued inpatient stay Coding Level of Care Code Acute Photography Coordinator for [facility] Diagnoses Bowel obstruction K56.601 Intestinal obstruction extent: complete Intestinal obstruction type: unspecified
--- NOTE | 2020-11-28 10:53 | PC.CHAP ---
Pastoral Care Encounter/Spiritual Assessment Type of Contact [] Declined western tack assembly line worker visit [] Patient/Family/Request visit [] Outpatient visit [] Follow-up visit [] Physician referral [] Code/Alert [x] Routine visit [] Staff referral [] Actively dying [] Patient sleeping [] Family support [] [] Out of room [] Palliative care [] [x] Receiving care in room [] Pre-surgical visit [] Trauma [] Long length of stay [] ICU visit [] Other: short term stay Relational/Emotional Strength [x] Patient feels connected with others/family/visitors/staff [] Distress [] Loneliness/isolation [] Abandonment Spirituality of Patient [x] Person of Rneea [] Attends Buddhist of their Renea [x] Believes in Prayer [] Reads Bible or Mandaen materials [x] There are Spiritual issues to be addressed Betting Clerk Interventions [x] Prayer [x] Active listening [x] Non-anxious presence [x] Spiritual/emotional support [] Crisis/trauma care [x] Spiritual counseling [] Bereavement support [] Provided bereavement packet [] Provided Bible/devotional materials [] Provided toy/stuffed animal, coloring book to patient or family member [] Provided Communion [] Anointing/[place] [] Salvation [x] Completed spiritual assessment [] Other: Impact on Illness or Injury [] Angry [x] Fearful [] Anxious [] Often cries [] Exhaustion [x] Unable to work [] Unable to attend latter-day [] Unable to walk/stand [] Unable to read [] Unable to drive [] Unable to eat/drink [] Unable to sleep [] Unable to be with family [] Patient intubated [] Other: Summary Adult She is i pain, doesn't know what need to be done or when she can go home has a negative atrtitude Time spent with patient 1omins
[2020-11-28 11:10] VITALS: BP 112/57; PULSE 56; RESP 17; TEMP 36.8; O2SAT 97
[2020-11-28] MEDS: lactulose oral liq 20 gm/30 mL UDC 10 GM PO ×2 (11:21→22:18)
[2020-11-28] MEDS: magnesium citrate Btl 296 mL PO (11:21)
[2020-11-28] MEDS: morphine 4 mg/mL SDV 1 mL 3 MG IVP (14:21)
[2020-11-28] MEDS: ondansetron 2 mg/ML SDV 2 mL 4 MG IVP (15:08)
[2020-11-28 15:11] VITALS: BP 125/75; PULSE 72; RESP 16; TEMP 37.2; O2SAT 95
[2020-11-28 20:00] VITALS: BP 110/67; PULSE 79; RESP 18; TEMP 36.9; O2SAT 93
[2020-11-29] VITALS: BP 96/58; PULSE 52; RESP 18; TEMP 37.1; O2SAT 96
[2020-11-29] MEDS: D5-NS 0.45% + KCL 20 mEq 20 MEQ/1,000 ML BAG 100 MEQ IV ×2 (00:32→13:41)
[2020-11-29] MEDS: famotidine 20 mg/2 mL INJ IVP (03:50)
[2020-11-29 04:00] VITALS: BP 99/59; PULSE 76; RESP 18; TEMP 36.9; O2SAT 95
[2020-11-29] MEDS: enoxaparin 40 mg/0.4 mL Syringe SUBCUT (05:57)
--- NOTE | 2020-11-29 06:00 | XR_ITS ---
WS: [id number] Comparison 11/28/2020. Previously noted small bowel loops are almost completely decompressed on today's exam. A small amount of small bowel gas seen in the left abdomen. There is gas noted throughout the large bowel. Surgical sutures in the left abdomen. Visualized organ margins are intact. No free air. Regional bony element s appear normal. NG tube is been removed. XR/XR abdomen min 2V [id number] IMPRESSION: 1. Resolved small bowel obstructive pattern since the last exam. No acute abdom inal finding on today's study.
[2020-11-29 06:16] LABS: Basophils # 0.1 10^3/uL (0.0-0.1); Basophils % 0.7 %; Eosinophils # 0.2 10^3/uL (0.0-0.8); Lymphocytes # 1.4 10^3/uL (1.5-6.5); Lymphocytes % 20.5 %; Mean Corpuscular HGB Conc 31.6 g/dL (30.0-36.0); Mean Corpuscular Hemoglobin 26.7 pg (28.0-34.0); Mean Corpuscular Volume 84.4 fL (81-99); Mean Platelet Volume 10.8 fL (7.4-10.4); Monocytes % 14.2 %; Neutrophils # 4.26 10^3/uL (1.8-8.0); Neutrophils % 61.3 %; Nucleated Red Blood Cells % 0 %; Platelet Count 201 10^3/cmm (130-400); Red Cell Distribution Width 13.2 % (12.1-15.1)
[2020-11-29 06:32] LABS: Anion Gap 11.8 (5-19); Blood Urea Nitrogen 2 mg/dL (6-20); Calcium 8.3 mg/dL (8.5-10.5); Carbon Dioxide 26 mmol/L (22-29); Chloride 105 mmol/L (98-107); Glomerular Filtration Rate 128.8 mL/min (90-130); Glucose 92 mg/dL (65-115); Osmolality Calculated 284 mOsm/kg (285-295); Potassium 3.8 mmol/L (3.5-5.1); Sodium 139 mmol/L (136-145)
[2020-11-29 08:00] VITALS: BP 114/68; PULSE 62; RESP 20; TEMP 36.3; O2SAT 97
--- NOTE | 2020-11-29 08:06 | P.PN_ITS ---
Subjective Subjective: Interval history: Patient feels a lot better, denies any nausea or vomiting except for one episode yesterday, abdominal pain has resolved, had multiple bowel movements Vitals/I&O/Wt Last Vital Signs Temp 97.4 F L 11/29/20 08:00 Pulse 62 11/29/20 08:00 Resp 20 H 11/29/20 08:00 BP 114/68 11/29/20 08:00 Pulse Ox 97 11/29/20 08:00 11/28/20 11/29/20 11/29/20 22:59 06:59 14:59 Intake Total 480 / 2480 1000 / 2480 Balance 480 / 2480 1000 / 2480 Physical Exam Narrative: EXAM NARRATIVE: Abdomen: Soft, nontender, nondistended Data : 11/29/20 05:25 11/29/20 05:25 A&P Assessment and plan (1) Bowel obstruction: 19-year-old female status post prior laparotomy who presents with findings suggestive of bowel obstruction. Patient had multiple bowel movements yesterday and is tolerating a clear liquid diet. Abdominal x-ray shows significant improvement Advance to full liquid diet 1 bottle magnesium citrate today Patient is 4 weeks and therefore I would like to get her home as soon as possible so she can be with her baby , with plan for hopeful discharge later this afternoon Status: Acute Qualifiers: Intestinal obstruction extent: complete Intestinal obstruction type: unspecified Qualified Code(s): K56.601 - Complete intestinal obstruction, unspecified as to cause Attestations Medical Necessity Statement*: Small bowel obstruction appears to be resolving, possible discharge later today Coding Level of Care Code Acute Development Scientist for [facility] Diagnoses Bowel obstruction K56.601 Intestinal obstruction extent: complete Intestinal obstruction type: unspecified
[2020-11-29 11:09] VITALS: BP 115/68; BP 118/65; BP 122/78; PULSE 80; PULSE 81; PULSE 88
[2020-11-29] MEDS: lactulose oral liq 20 gm/30 mL UDC 10 GM PO (11:10)
--- NOTE | 2020-11-29 16:40 | PM.DCS ---
Discharge Providers Date of Admission: 11/27/20 11:31 Date of Discharge: November 29, 2020 Attending Provider at Admission: Darion Vega MD Attending Provider at Discharge: Darion Vega MD Primary Care Provider: Karma Avila MD Diagnoses at Discharge Discharge Diagnosis (1) Bowel obstruction: Status: Acute Qualifiers: Intestinal obstruction extent: complete Intestinal obstruction type: unspecified Qualified Code(s): K56.601 - Complete intestinal obstruction, unspecified as to cause Reason for Visit Reason for Visit: N/V Brief History: This is a 19-year-old female who presented to the ER with abdominal pain, nausea and vomiting with CT scan findings concerning for small bowel obstruction. Patient has had a prior laparotomy secondary to trauma and therefore she was admitted with a diagnosis of small bowel obstruction secondary to adhesions. Patient was placed on bowel rest with the following day the patient was given enema and bottles of magnesium citrate and had multiple bowel movements. Her abdominal pain resolved, she was advanced on her diet. At time of discharge she is tolerating full liquid diet and had multiple bowel movements, vital signs are stable and she did not have any abdominal pain. Discharge Data Data Completed and Pending: Completed Studies During Hospitalization Category Date Time Status CT abdomen pelvis w con* [id number] Urge nt Cat Scan 11/27/20 10:19 Completed XR abdomen min 2V [id number] Routine Exams 11/28/20 06:00 Completed XR abdomen min 2V [id number] Routine Exams 11/29/20 06:00 Completed XR chest 1V jed ble [id number] Stat Exams 11/27/20 12:31 Completed Pending at discharge Category Date Time Status Basic Metabolic P theresa AM LABS Lab 11/30/20 04:00 Ordered Complete Blood Co unt w/Auto AM LABS Lab 11/30/20 04:00 Ordered Labs from last 24 hours 11/29/20 11/29/20 05:25 05:25 WBC 7.0 RBC 4.50 Hgb 12.0 Hct 38.0 MCV 84.4 MCH 26.7 L MCHC 31.6 RDW 13.2 Plt Count 201 MPV 10.8 H Neut % (Auto) 61.3 Lymph % (Auto) 20.5 [place] % (Auto) 14.2 Eos % (Auto) 3.0 Baso % (Auto) 0.7 Neut # (Auto) 4.26 Lymph # (Auto) 1.4 L [place] # (Auto) 1.0 H Eos # (Auto) 0.2 Baso # (Auto) 0.1 Nucleated RBC % (a uto) 0 Nucleated RBCs # 0.0 Sodium 139 Potassium 3.8 Chloride 105 Carbon Dioxide 26 Anion Gap 11.8 BUN 2 L Creatinine 0.6 GFR Calculation 128.8 Glucose 92 Calculated Osmolal ity 284 L Calcium 8.3 L Vitals: Last Vital Signs Temp 97.4 F L 11/29/20 08:00 Pulse 80 11/29/20 11:09 Resp 20 H 11/29/20 08:00 BP 115/68 11/29/20 11:09 Pulse Ox 97 11/29/20 08:00 Discharge Plan Discharge Patient Disposition: Home Condition: Stable Prescriptions: New lactulose 10 gram/15 mL solution 15 ml PO BID Qty: 237 RF: 2 Continued PNV cmb#95-ferrous fumarate-FA [] 28 mg iron- 800 mcg Tablet 1 tab PO DAILY RF: 0 ibuprofen 800 mg tablet 800 mg PO TID PRN (Reason: Pain) RF: 0 Discharge Orders: Discharge Order (Routine); Ordered 11/29/20 Ordered By: Darion Vega Referrals: Karma Avila MD [Primary Care Provider] - Discharge Diet: Advance as tolerated Discharge Activity: Resume usual activity Activity Restrictions/Additional Instructions: Return to the emergency department for continued episodes of vomiting, blood in your vomit, severe abdominal pain, fevers, or any other concerns you may have. Continue lactulose 15 cc p.o. twice daily, adjust dose as needed to avoid significant diarrhea Discharge Attestations Time Spent in Discharge Care*: less than 30 min Quality Metrics Clinical Quality Measures During this hospital stay, did patient experience: None Coding Level of Care Code Acute g [facility] note Diagnoses Bowel obstruction K56.601 Intestinal obstruction extent: complete Intestinal obstruction type: unspecified
[2020-11-29 16:48] VITALS: BP 114/68; PULSE 62; RESP 20; TEMP 36.3; O2SAT 97
== END 2020-11-29 18:46 | disposition home or self-care (01) | DRG 390 ==
LOC: ER 11:13 → MEDSURG 12:49
PROVIDERS: Admitting Provider Surgery; Emergency Provider Physician Assistant; PCP Family Medicine; Visit Provider Surgery
DX: K56.52 Intestinal adhesions [bands] with complete obstruction (principal); Z90.49 Acquired absence of other specified parts of digestive tract
CPT/HCPCS: 36415; 71045; 74019; 74177; 80048; 80053; 81001; 81003; 81025; 83605; 83690; 85025; 96372; J1650; J2270; J2405; J2765; J3490; J7030; J7040; Q9967

== ENCOUNTER 2021-12-17 06:56 | Emergency (ER) | payer OTHER, SELFPAY ==
[2021-12-17 07:15] VITALS: BP 121/84; RESP 16; TEMP 37.1; O2SAT 97; BMI 18.8
--- NOTE | 2021-12-17 07:25 | ED_ITS ---
HPI - Back Pain/Injury General: Chief Complaint: General Medical Stated Complaint: severe neck & back pain/nausea Time Seen by Provider: 12/17/21 06:58 Source: patient Mode of arrival: ambulatory Limitations: no limitations History of Present Illness: Patient is a nice 20-year-old female presents to ED today with a complaint of neck and back pain. Patient states she awoke this morning with significant discomfort to these areas. She states yesterday she felt fine . She is employed here at [employer] in the [employer] department. She denies any lifting, twisting, turning yesterday. She states yesterday evening she mainly rested as she had had a few episodes of diarrhea. She is not complaining of abdominal pain or cramping. No fevers. She does feel nauseous that she attributes to pain. She has not had any episodes of vomiting. She states pain seems to be worse with any form of movement as well as ambulation stating that walking causes significant discomfort to her back. Patient states she normally does not have back or neck problems. She does not complain of any numbness, tingling, weakness to her arms or legs. She does not feel like her discomfort radiates into her extremities. She does not complain of a headache. MD elicited complaint: back pain and other (neck pain) Onset (ago): hour(s) Timing: constant Severity: severe Similar Symptoms Previously: No Location: lumbar spine and thoracic spine Exacerbating factors: movement and walking Relieving factors: none Context: other (awoke with pain) Associated symptoms: Reports difficulty walking (states is hurts her back/neck to ambulate); Deny abdominal pain, chills, dysuria, fatigue, fever(s), hematuria, nausea, syncope or vomiting Work related injury: No Review of Systems Const: Denies: fever(s), chills, body aches, fatigue or malaise Eyes: Denies: change in vision or blurry vision Card: Denies: chest pain, palpitations, irregular heart rhythm, edema, swelling of feet/ankles, lightheadedness, syncope, pre-syncope, dyspnea on exertion or orthopnea Resp: Denies: dyspnea, wheezing, hemoptysis or chest congestion GI: Reports: diarrhea (reports a little diarrhea over the past few days); Denies: abdominal pain, nausea, vomiting, hematemesis, hematochezia or melena : Denies: flank pain, dysuria or hematuria Musc: Reports: neck pain and back pain; Denies: extremity pain, extremity swelling, joint pain, joint swelling, joint redness or joint warmth Skin/Breast: Denies: rash Neuro: Reports: difficulty walking (states is hurts her back/neck to ambulate); Denies: headache(s), numbness in extremities, weakness in extremities, sensory changes, lack of coordination, frequent falls, dizziness or confusion PFSH ED PFSH: Surgical History S/P exploratory laparotomy Jejunal resection, Meckel's diverticulectomy and drainage of intra-abdominal abscess-[facility] 2016 Social History Smoking and tobacco status: never smoked Female Reproductive History: Date of last menstrual period: 02/14/20 Physical Exam Const: COMMON NORMALS: average body habitus, patient oriented x3, no limitations, healthy appearing, alert and well nourished GENERAL APPEARANCE: cooperative and in distress (appears uncomfortable secondary to pain) ORIENTATION/CONSCIOUSNESS: Yes awake, Yes oriented to person, Yes oriented to place and Yes oriented to time HENMT: COMMON NORMALS: normocephalic and atraumatic HEAD & SCALP: normal to inspection, normocephalic and atraumatic FACE & SINUS: normal facial exam Eye: COMMON NORMALS: Equal, round and reactive pupils present and EOMs intact bilaterally GENERAL EYE: appearance normal, both eyes and all related structures PUPIL: Yes Equal, round and reactive pupils present Neck/C-Spine: COMMON NORMALS: no lymphadenopathy and no meningeal signs GENERAL: Yes normal visual inspection CERVICAL SPINE: Yes cervical ROM abnormal, Yes pain with cervical ROM, Yes Cervical spine tenderness, No step off deformity, Yes Paracervical muscle tenderness, No Paracervical spasm and Yes Trapezius muscle tenderness Chest: COMMONS NORMALS: normal inspection of the chest and normal palpation of entire chest wall Resp: COMMON NORMALS: normal respiratory effort and clear to auscultation bilaterally AUSCULTATION: clear to auscultation bilaterally Cardio: COMMON NORMALS: regular rate and regular rhythm RATE: regular rate RHYTHM: regular rhythm GI: COMMON NORMALS: Normal to inspection, nondistended, normoactive bowel sounds present, Soft to palpation, non-tender, No hepatosplenomegaly present and no masses PALPATION: Yes Soft to palpation and Yes No hepatosplenomegaly present : COMMON NORMALS: Yes no CVA tenderness BLADDER/KIDNEY EXAM: Yes no CVA tenderness Back/Pelvis: COMMON NORMALS: no CVA tenderness THORACIC SPINE/UPPER BACK: Yes pain with ROM, Yes thoracic spinal tenderness, Yes paraspinal muscle tenderness and No paraspinal muscle spasm LUMBAR SPINE/LOWER BACK: Yes pain with ROM, Yes lumbar spinal tenderness, Yes paraspinal muscle tenderness and No paraspinal muscle spasm PELVIS: Yes buttocks normal SACROILIAC JOINTS: Yes SI joints normal Extremity: COMMON NORMALS: normal to inspection NARRATIVE EXTREMITY EXAM: limited ROM of bilateral shoulders stating it causes significant discomfort in her neck and back GENERAL: Yes normal exam except as noted Neuro: FRANNY COMA SCALE: document GCS findings Franny coma scale eye opening: Spontaneous Franny coma scale verbal response: Orientated [place] coma scale motor response: Obey commands Franny coma scale total score: 15 COMMON NORMALS: patient oriented x3, moves all extremities, no focal motor deficits and no sensory deficits noted SENSORIUM/ORIENTATION: Yes alert, Yes oriented to person, Yes oriented to place and Yes oriented to time MENINGEAL SIGNS: Yes no meningeal signs MOTOR EXAM: 5/5 motor strength present throughout Skin: COMMON NORMALS: no rashes or lesions noted GENERAL SKIN EXAM: no rashes or lesions noted Course Vital Signs: Vital signs: Vital Signs Temperature 98.7 F 12/17/21 07:15 Respiratory Rate 16 12/17/21 07:58 Blood Pressure 121/84 12/17/21 07:58 Pulse Oximetry 100 12/17/21 07:58 MDM - Back Pain/Injury Medical Decision Making Patient is a 20-year-old female here for diffuse neck and back pain that she states she awoke with. Pain is reproducible on exam with palpation and ROM of her neck, back, and shoulders. She not having any chest pain, difficulty breathing, shortness of breath. No abdominal pain. No headache. No recent illness or fevers. No drug use. She has no meningeal signs on examination. Following IV Norflex and Toradol she does report feeling improved. Her vital signs are normal. Her blood work/UA are unremarkable. At this time we will go ahead and treat her for musculoskeletal pain with NSAIDs, muscle relaxers, s teroids. Discussed signs/symptoms that should prompt a return to ED evaluation. Patient verbalized understanding. She will be given a work note off work for the next 2 days. Recommend follow-up with primary care in the next week or so if symptoms persist. Labs : 12/17/21 08:08 12/17/21 08:08 Laboratory Results WBC 10.3 10^3/uL (4.5-13.0) 12/17/21 08:08 RBC 5.28 10^6/uL (4.1-5.3) 12/17/21 08:08 Hgb 15.0 g/dL (11.5-15.3) 12/17/21 08:08 Hct 44.8 % (37.0-47.0) 12/17/21 08:08 MCV 84.8 fl (81-99) 12/17/21 08:08 MCH 28.4 pg (28.0-34.0) 12/17/21 08:08 MCHC 33.5 g/dL (30.0-36.0) 12/17/21 08:08 RDW 12.1 % (12.1-15.1) 12/17/21 08:08 Plt Count 277 10^3/cmm (130-400) 12/17/21 08:08 MPV 10.9 fL (7.4-10.4) H 12/17/21 08:08 Neut % (Auto) 70.6 % 12/17/21 08:08 Lymph % (Auto) 17.4 % 12/17/21 08:08 [place] % (Auto) 10.1 % 12/17/21 08:08 Eos % (Auto) 0.8 % 12/17/21 08:08 Baso % (Auto) 0.6 % 12/17/21 08:08 Neut # (Auto) 7.27 10^3/uL (1.8-8.0) 12/17/21 08:08 Lymph # (Auto) 1.8 10^3/uL (1.5-6.5) 12/17/21 08:08 [place] # (Auto) 1.0 10^3/uL (0.2-0.9) H 12/17/21 08:08 Eos # (Auto) 0.1 10^3/uL (0.0-0.8) 12/17/21 08:08 Baso # (Auto) 0.1 10^3/uL (0.0-0.1) 12/17/21 08:08 Nucleated RBC % (auto) 0 % 12/17/21 08:08 Nucleated RBCs # 0.0 /100WBC 12/17/21 08:08 Sodium 138 mmol/L (136-145) 12/17/21 08:08 Potassium 4.0 mmol/L (3.5-5.1) 12/17/21 08:08 Chloride 104 mmol/L (98-107) 12/17/21 08:08 Carbon Dioxide 24 mmol/L (22-29) 12/17/21 08:08 Anion Gap 14.0 (5-19) 12/17/21 08:08 BUN 8 mg/dL (6-20) 12/17/21 08:08 Creatinine 0.8 mg/dL (0.5-0.9) 12/17/21 08:08 GFR Calculation 91.4 mL/min (90-130) 12/17/21 08:08 Glucose 102 mg/dL (65-115) 12/17/21 08:08 Calculated Osmolality 285 mOsm/kg (285-295) 12/17/21 08:08 Calcium 10.1 mg/dL (8.5-10.5) 12/17/21 08:08 Total Bilirubin 0.6 mg/dL (0.15-1.2) 12/17/21 08:08 AST 20 U/L (0-32) 12/17/21 08:08 ALT 13 U/L (0-33) 12/17/21 08:08 Alkaline Phosphatase 61 IU/L (35-105) 12/17/21 08:08 C-Reactive Protein 3.0 mg/L (0.0-4.9) 12/17/21 08:08 Total Protein 7.5 g/dL (6.6-8.7) 12/17/21 08:08 Albumin 4.5 g/dL (3.5-5.2) 12/17/21 08:08 Globulin 3.0 g/dL (1.3-4.6) 12/17/21 08:08 HCG, Qual Negative (Negative) 12/17/21 08:08 Urine Color Yellow (Yellow) 12/17/21 08:08 Urine Appearance Hazy (CLEAR) A 12/17/21 08:08 Urine pH 6 (5-7) 12/17/21 08:08 Ur Specific Bessie 1.015 (1.005-1.030) 12/17/21 08:08 Urine Protein Neg (Negative) 12/17/21 08:08 Urine Glucose (UA) Norm (Normal) 12/17/21 08:08 Urine Ketones Negative (Negative) 12/17/21 08:08 Urine Blood Neg (Negative) 12/17/21 08:08 Urine Nitrate Negative (Negative) 12/17/21 08:08 Urine Bilirubin Neg (Negative) 12/17/21 08:08 Urine Urobilinogen Norm mg/dL (Negative) 12/17/21 08:08 Ur Leukocyte Esterase Trace (Negative) H 12/17/21 08:08 Urine RBC None /hpf (0-2) 12/17/21 08:08 Urine WBC 0-4 /hpf (0-5) H 12/17/21 08:08 Ur Squamous Epith Cells 0-4 /hpf (0-5) H 12/17/21 08:08 Amorphous Sediment Not Reportable 12/17/21 08:08 Urine Bacteria 1+ /hpf (NONE) H 12/17/21 08:08 Discharge Plan Discharge Patient Disposition: Home Clinical Impression: Neck pain without injury Back pain Qualifiers: Back pain location: back pain in other location Chronicity: acute Qualified Code(s): M54.9 - Dorsalgia, unspecified Condition: Stable Prescriptions: New ibuprofen 600 mg tablet 600 mg PO TID PRN (Reason: pain) Qty: 20 0RF cyclobenzaprine 10 mg tablet 10 mg PO TID Qty: 14 0RF Medrol (Juan) 4 mg tablets,dose pack See Rx Instructions .ROUTE .COMPLEX Qty: 21 0RF Rx Instructions: orally per package directions Discontinued ibuprofen 800 mg tablet 800 mg PO TID PRN (Reason: Pain) 0RF No Action PNV cmb#95-ferrous fumarate-FA [] 28 mg iron- 800 mcg Tablet 1 tab PO DAILY 0RF lactulose 10 gram/15 mL solution 15 ml PO BID Qty: 237 2RF Discharge Orders: Discharge ED (Routine); Ordered 12/17/21 Ordered By: Tootie Shea Activity Restrictions/Additional Instructions: As we discussed we are treating you for musculoskeletal neck and back pain. Need to return to the emergency department for numbness, tingling, loss of s ensation to your arms or legs, trouble ambulating/walking, severe headache, severe neck pain/stiffness, fevers greater than 100.4, or any other concerns you may have. I hope you begin to feel better soon. Stand Alone Forms: Work/School Release Coding Level of Care Code ED Director Of Tax Services for [employer] [facility] Exam Comprehensive
[2021-12-17 07:58] VITALS: BP 121/84; RESP 16; O2SAT 100
[2021-12-17] MEDS: orphenadrine 30 mg/mL Inj 2 mL 60 MG IVP (08:07)
[2021-12-17] MEDS: ketorolac 60 mg/2 mL INJ 30 MG IVP (08:08)
[2021-12-17 08:37] LABS: Basophils # 0.1 10^3/uL (0.0-0.1); Basophils % 0.6 %; Eosinophils # 0.1 10^3/uL (0.0-0.8); Eosinophils % 0.8 %; Hematocrit 44.8 % (37.0-47.0); Lymphocytes # 1.8 10^3/uL (1.5-6.5); Lymphocytes % 17.4 %; Mean Corpuscular HGB Conc 33.5 g/dL (30.0-36.0); Mean Corpuscular Hemoglobin 28.4 pg (28.0-34.0); Mean Corpuscular Volume 84.8 fl (81-99); Mean Platelet Volume 10.9 fL (7.4-10.4); Monocytes % 10.1 %; Neutrophils # 7.27 10^3/uL (1.8-8.0); Neutrophils % 70.6 %; Nucleated Red Blood Cells % 0 %; Platelet Count 277 10^3/cmm (130-400); Red Blood Count 5.28 10^6/uL (4.1-5.3); Red Cell Distribution Width 12.1 % (12.1-15.1); White Blood Count 10.3 10^3/uL (4.5-13.0)
[2021-12-17 08:39] LABS: Add Urine Microscopic? YES; Bilirubin Urine Neg (Negative); Blood Urine Neg (Negative); Glucose Urine UA Norm (Normal); Ketones Urine Negative (Negative); Leukocyte Esterase Urine Trace (Negative); Nitrate Urine Negative (Negative); Protein Urine Neg (Negative); Specific Gravity, Urine 1.015 (1.005-1.030); Urine Appearance Hazy (CLEAR); Urine Color Yellow (Yellow); Urobilinogen Urine Norm (Negative); pH Urine 6 (5-7)
[2021-12-17 08:40] LABS: Bacteria Urine 1+ /hpf; Squamous Epithelial Cell Urine 0-4 /hpf (0-5); WBC Urine 0-4 /hpf (0-5)
[2021-12-17 08:47] LABS: HCG, Serum Qual Negative (Negative)
[2021-12-17 08:50] LABS: Alanine Aminotransferase 13 U/L (0-33); Albumin Level 4.5 g/dL (3.5-5.2); Alkaline Phosphatase 61 IU/L (35-105); Aspartate Amino Transferase 20 U/L (0-32); Blood Urea Nitrogen 8 mg/dL (6-20); Calcium 10.1 mg/dL (8.5-10.5); Carbon Dioxide 24 mmol/L (22-29); Chloride 104 mmol/L (98-107); Glomerular Filtration Rate 91.4 mL/min (90-130); Glucose 102 mg/dL (65-115); Osmolality Calculated 285 mOsm/kg (285-295); Sodium 138 mmol/L (136-145); Total Bilirubin 0.6 mg/dL (0.15-1.2); Total Protein 7.5 g/dL (6.6-8.7)
[2021-12-17 09:25] VITALS: BP 107/61; PULSE 59; O2SAT 99
== END 2021-12-17 09:29 | disposition home or self-care (01) ==
PROVIDERS: Emergency Provider Physician Assistant
DX: M54.2 Cervicalgia (principal); M54.9 Dorsalgia, unspecified
CPT/HCPCS: 80053; 81001; 84703; 85025; 86140; 96374; 96375; 99283; J1885; J2360

== ENCOUNTER 2022-06-28 00:25 | Emergency (ER) | payer OTHER, MEDICAID, SELFPAY ==
[2022-06-28 00:33] VITALS: BP 119/69; PULSE 121; RESP 16; TEMP 36.6; O2SAT 97; BMI 18.8
--- NOTE | 2022-06-28 03:40 | XRR_ITS ---
PROCEDURE INFORMATION: Exam: XR Chest Exam date and time: 06/28/2022 3:43 AM Age: 21 years old Clinical indication: Shortness of breath; Patient HX: C/O SOB TECHNIQUE: Imaging protocol: Radiologic exam of the chest. Views: 1 view. COMPARISON: CR XR chest 1V portable [id number] 11/27/2020 12:12 PM FINDINGS: Lungs: Unremarkable. No consolidation. Pleural spaces: Unremarkable. No pleural effusion. No pneumothorax. Heart/Mediastinum: Unremarkable. No cardiomegaly. Bones/joints: Unremarkable. XR/XR chest 1V portable [id number] IMPRESSION: No acute findings.
--- NOTE | 2022-06-28 03:40 | ECG_ITS ---
[facility] Test Date: 2022-06-28 Pat Name: Camila Dallas Department: Room: Gender: Female Legal Services Manager: : 2000 Requested By: César Duran Order Number: [id number] Eusebio MD: Analia Alexander M.D. Measurements Intervals [place] Rate: 80 P: 66 [place]: 152 QRS: 85 QRSD: 74 T: 33 QT: 333 QTc: 385 Interpretive Statements SINUS RHYTHM POSSIBLE LEFT ATRIAL ENLARGEMENT [-0.1mV P-WAVE IN V1/V2] NONSPECIFIC T-WAVE ABNORMALITY No previous ECG available for comparison Electronically Signed On 06-28-2022 22:08:34 CDT by Analia Alexander M.D. [email or web address]
--- NOTE | 2022-06-28 17:05 | W.ED.SOB ---
HPI - SOB/Dyspnea General: Chief Complaint: Shortness of Breath/Dyspnea Stated Complaint: panic attack Time Seen by Provider: 06/28/22 03:30 Source: patient History of Present Illness: HPI Narrative: 21 year old female who recently found out she was . She presents with some shortness of breath, a burning sensation at the base of her chest, and a feeling of panic. Symptoms are essentially now resolved. This happened at home, at rest. No fever, no cough. No history of this prior. She says that the pain felt like heartburn. she states the shortness of breath was like asthma, but she doesn't have a history of asthma. MD elicited complaint: shortness of breath Pertinent past history: other Onset (ago): hour(s) Context: other Timing: now resolved Severity: moderate Exacerbating factors: exertion Relieving factors: nothing Known history of: other Associated symptoms: Reports abdominal pain (slight epigastric); Deny chest congestion, chest pain, cough, diaphoresis, extremity pain, fever(s), nausea, orthopnea, palpitations or vomiting Treatment prior to arrival: none Review of Systems Const: Denies: fever(s) or diaphoresis Card: Denies: chest pain, palpitations or orthopnea Resp: Reports: dyspnea; Denies: productive cough, non-productive cough or chest congestion GI: Reports: abdominal pain (slight epigastric); Denies: nausea or vomiting Musc: Denies: extremity pain PFS ED PFSH: Surgical History S/P exploratory laparotomy Jejunal resection, Meckel's diverticulectomy and drainage of intra-abdominal abscess-[facility] 2017 Social History Smoking and tobacco status: never smoked Female Reproductive History: Date of last menstrual period: 02/14/20 Physical Exam Const: COMMON NORMALS: no acute distress GENERAL APPEARANCE: cooperative; not ill appearing and not frail appearing HENMT: COMMON NORMALS: normocephalic, atraumatic and Normal external nose present HEAD & SCALP: normocephalic and atraumatic FACE & SINUS: normal facial exam and face symmetric NOSE: Normal external nose present Eye: COMMON NORMALS: Equal, round and reactive pupils present and EOMs intact bilaterally PUPIL: Yes Equal, round and reactive pupils present Neck/C-Spine: GENERAL: Yes trachea midline Chest: CHEST: Yes Symmetrical chest wall rise Resp: COMMON NORMALS: normal respiratory effort, No retractions, No use of accessory muscles and clear to auscultation bilaterally AUSCULTATION: clear to auscultation bilaterally Cardio: COMMON NORMALS: regular rate and regular rhythm RATE: regular rate RHYTHM: regular rhythm GI: COMMON NORMALS: Normal to inspection, nondistended, normoactive bowel sounds present Extremity: COMMON NORMALS: no pedal edema Neuro: FRANNY COMA SCALE: document GCS findings [place] coma scale eye opening: Spontaneous [place] coma scale verbal response: Orientated [place] coma scale motor response: Obey commands Franny coma scale total score: 15 SENSORY EXAM: Yes extremities (intact) Psych: COMMON NORMALS: speech normal SPEECH: Yes normal speech Skin: COMMON NORMALS: no rashes or lesions noted GENERAL SKIN EXAM: no rashes or lesions noted Course Vital Signs: Vital signs: Vital Signs Temperature 97.9 F 06/28/22 00:33 Pulse Rate 121 H 06/28/22 00:33 Respiratory Rate 16 06/28/22 00:33 Blood Pressure 119/69 06/28/22 00:33 Pulse Oximetry 97 06/28/22 00:33 MDM - SOB/Dyspnea Medical Decision Making This patient is a thin healthy appearing female in absolutely no distress. She has no significant chest tenderness. Some mild epigastric tenderness. Breath sounds are normal period chest X-ray is normal. EKG shows a sinus rhythm, without tachycardia. No Q waves or St changes present. She is newly . She has no lower belly pain, no vaginal bleeding or discharge. With the resolution of her symptoms, she'll be allowed discharge. Lab Data Labs/Radiology: Radiology Impressions Chest X-Ray 06/28/22 03:40 IMPRESSION: No acute findings. Discharge Plan Discharge Patient Disposition: Home Clinical Impression: Anxiety, Acute dyspnea, Chest pain due to GERD Condition: Stable Prescriptions: New Pepcid 20 mg tablet 20 mg PO BID Qty: 60 0RF No Action PNV cmb#95-ferrous fumarate-FA [] 28 mg iron- 800 mcg Tablet 1 tab PO DAILY lactulose 10 gram/15 mL solution 15 ml PO BID Qty: 237 2RF ibuprofen 600 mg tablet 600 mg PO TID PRN (Reason: pain) Qty: 20 0RF cyclobenzaprine 10 mg tablet 10 mg PO TID Qty: 14 0RF Medrol (Juan) 4 mg tablets,dose pack See Rx Instructions .ROUTE .COMPLEX Qty: 21 0RF Rx Instructions: orally per package directions Discharge Orders: Discharge ED (Routine); Ordered 06/28/22 Ordered By: César Muñiz Patient Instructions: Chest Pain (ED), GERD (Gastroesophageal Reflux Disease) (ED) Activity Restrictions/Additional Instructions: Return for repeated episodes of shortness of breath or chest discomfort despite treatment, fever greater than 100, any other concerning symptoms. 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
== END 2022-06-28 04:09 | disposition home or self-care (01) ==
PROVIDERS: Emergency Provider Emergency Medicine
DX: F41.9 Anxiety disorder, unspecified (principal); R07.9 Chest pain, unspecified; R06.00 Dyspnea, unspecified; K21.9 Gastro-esophageal reflux disease without esophagitis
CPT/HCPCS: 71045; 93005; 99284

== ENCOUNTER 2022-07-16 02:17 | Emergency (ER) | payer OTHER, MEDICAID, SELFPAY ==
[2022-07-16 02:22] VITALS: BP 114/74; PULSE 114; RESP 16; TEMP 36.9; O2SAT 96; BMI 19.7
--- NOTE | 2022-07-16 02:39 | W.ED.ABDPA2 ---
HPI - Abdominal Pain General: Chief Complaint: Abdominal Pain Stated Complaint: 9 weeks abd pain Time Seen by Provider: 07/16/22 02:18 Source: patient Mode of arrival: ambulatory Limitations: no limitations History of Present Illness: 21-year-old female who is currently 9 weeks with twins states she had some lower abdominal cramping tonight states it was a 9 out of 10 currently is a 6 out of 10. States mainly suprapubic in nature. She had some diarrhea denies any vomiting she denies any fever she denies any vaginal bleeding. Associated Symptoms: Denies chills, dysuria and fever(s) Related Data: Date of Last Menstrual Period: 02/14/20 Review of Systems Const: Denies: fever(s), chills, body aches or change in appetite Eyes: Denies: blurry vision or eye discomfort ENMT: Denies: throat pain or dental pain Card: Denies: chest pain Resp: Denies: dyspnea GI: Reports: abdominal pain : Denies: dysuria Musc: Denies: neck pain or back pain Skin/Breast: Denies: rash Neuro: Denies: headache(s) Psych: Denies: depression Michael/Lymph: Denies: easy bruising All/Imm: Denies: urticaria PFSH ED PFSH: Surgical History S/P exploratory laparotomy Jejunal resection, Meckel's diverticulectomy and drainage of intra-abdominal abscess-[facility] 2016 Social History Smoking and tobacco status: never smoked Female Reproductive History: Date of last menstrual period: 02/14/20 Physical Exam Const: COMMON NORMALS: no acute distress, patient oriented x3 and healthy appearing HENMT: COMMON NORMALS: normocephalic and atraumatic HEAD & SCALP: normocephalic and atraumatic Eye: COMMON NORMALS: Equal, round and reactive pupils present and EOMs intact bilaterally PUPIL: Yes Equal, round and reactive pupils present Neck/C-Spine: COMMON NORMALS: full ROM and supple Chest: COMMONS NORMALS: normal inspection of the chest and normal palpation of entire chest wall Resp: COMMON NORMALS: normal respiratory effort, No retractions, No use of accessory muscles and clear to auscultation bilaterally AUSCULTATION: clear to auscultation bilaterally Cardio: COMMON NORMALS: regular rate, regular rhythm and No murmurs present (Cardio) RATE: regular rate RHYTHM: regular rhythm GI: COMMON NORMALS: Normal to inspection, nondistended, normoactive bowel sounds present, Soft to palpation, non-tender and no masses PALPATION: Yes Soft to palpation OTHER: no tenderness at mcburneys, negative psoas sign Extremity: COMMON NORMALS: normal to inspection and full ROM Neuro: COMMON NORMALS: patient oriented x3, moves all extremities and no focal motor deficits Psych: COMMON NORMALS: mental status grossly normal, Normal thought process present and cooperative THOUGHT PROCESS: Normal thought process present Skin: COMMON NORMALS: no rashes or lesions noted and no wounds GENERAL SKIN EXAM: no rashes or lesions noted Course Vital Signs: Vital signs: Vital Signs Temperature 98.4 F 07/16/22 02:22 Pulse Rate 85 07/16/22 03:35 Respiratory Rate 14 07/16/22 03:35 Blood Pressure 112/57 07/16/22 03:35 Pulse Oximetry 95 07/16/22 03:35 Oxygen Delivery Me thod 07/16/22 03:35 MDM - Abdominal Pain Medical Decision Making Patient presents here with abdominal pain and ultrasound here bedside showed IUP with twin gestation with normal heart rates she does have a UTI her exam here shows no signs of appendicitis she is stable for discharge we will prescribe her antibiotics for UTI she is return if she has any worsening pain she understands agrees to plan. Lab Data : 07/16/22 03:00 07/16/22 03:00 Labs/Radiology: Laboratory Results WBC 12.0 10^3/uL (4.0-10.0) H 07/16/22 03:00 RBC 4.54 10^6/uL (4.1-5.3) 07/16/22 03:00 Hgb 13.1 g/dL (11.5-15.3) 07/16/22 03:00 Hct 38.0 % (37.0-47.0) 07/16/22 03:00 MCV 83.7 fl (81-99) 07/16/22 03:00 MCH 28.9 pg (28.0-34.0) 07/16/22 03:00 MCHC 34.5 g/dL (30.0-36.0) 07/16/22 03:00 RDW 11.9 % (12.1-15.1) L 07/16/22 03:00 Plt Count 235 10^3/cmm (130-400) 07/16/22 03:00 MPV 11.1 fL (7.4-10.4) H 07/16/22 03:00 Neut % (Auto) 72.0 % 07/16/22 03:00 Lymph % (Auto) 17.2 % 07/16/22 03:00 [place] % (Auto) 9.3 % 07/16/22 03:00 Eos % (Auto) 0.6 % 07/16/22 03:00 Baso % (Auto) 0.4 % 07/16/22 03:00 Neut # (Auto) 8.63 10^3/uL (1.8-7.7) H 07/16/22 03:00 Lymph # (Auto) 2.1 10^3/uL (0.8-4.8) 07/16/22 03:00 [place] # (Auto) 1.1 10^3/uL (0.2-0.9) H 07/16/22 03:00 Eos # (Auto) 0.1 10^3/uL (0.0-0.8) 07/16/22 03:00 Baso # (Auto) 0.1 10^3/uL (0.0-0.1) 07/16/22 03:00 Nucleated RBC % (auto) 0 % 07/16/22 03:00 Nucleated RBCs # 0.0 /100WBC 07/16/22 03:00 Sodium 133 mmol/L (136-145) L 07/16/22 03:00 Potassium 3.5 mmol/L (3.5-5.1) 07/16/22 03:00 Chloride 101 mmol/L (98-107) 07/16/22 03:00 Carbon Dioxide 22 mmol/L (22-29) 07/16/22 03:00 Anion Gap 13.5 (5-19) 07/16/22 03:00 BUN 7 mg/dL (6-20) 07/16/22 03:00 Creatinine 0.5 mg/dL (0.5-0.9) 07/16/22 03:00 GFR Calculation 155.7 mL/min (90-130) H 07/16/22 03:00 Glucose 90 mg/dL (65-115) 07/16/22 03:00 Calculated Osmolality 274 mOsm/kg (285-295) L 07/16/22 03:00 Calcium 9.2 mg/dL (8.5-10.5) 07/16/22 03:00 Total Bilirubin 0.2 mg/dL (0.15-1.2) 07/16/22 03:00 AST 16 U/L (0-32) 07/16/22 03:00 ALT 13 U/L (0-33) 07/16/22 03:00 Alkaline Phosphatase 38 U/L (35-105) 07/16/22 03:00 Total Protein 6.9 g/dL (6.6-8.7) 07/16/22 03:00 Albumin 3.9 g/dL (3.5-5.2) 07/16/22 03:00 Globulin 3.0 g/dL (1.3-4.6) 07/16/22 03:00 Urine Color Yellow (Yellow) 07/16/22 02:33 Urine Appearance Sl hazy (CLEAR) A 07/16/22 02:33 Urine pH 6.5 (5-7) 07/16/22 02:33 Ur Specific [place] 1.015 (1.005-1.030) 07/16/22 02:33 Urine Protein Neg (Negative) 07/16/22 02:33 Urine Glucose (UA) Norm (Normal) 07/16/22 02:33 Urine Ketones Negative (Negative) 07/16/22 02:33 Urine Blood Neg (Negative) 07/16/22 02:33 Urine Nitrate Negative (Negative) 07/16/22 02:33 Urine Bilirubin Neg (Negative) 07/16/22 02:33 Urine Urobilinogen Norm mg/dL (Negative) 07/16/22 02:33 Ur Leukocyte Esterase 2+ (Negative) H 07/16/22 02:33 Urine RBC 0-4 /hpf (0-2) H 07/16/22 02:33 Urine WBC 15-25 /hpf (0-5) H 07/16/22 02:33 Ur Squamous Epith Cells 0-4 /hpf (0-5) H 11/10/22 02:33 Amorphous Sediment Not Reportable 07/16/22 02:33 Urine Bacteria 1+ /hpf (NONE) H 07/16/22 02:33 Discharge Plan Discharge Patient Disposition: Home Clinical Impression: Abdominal pain during , UTI (urinary tract infection) Condition: Stable Prescriptions: No Action PNV cmb#95-ferrous fumarate-FA [] 28 mg iron- 800 mcg Tablet 1 tab PO DAILY lactulose 10 gram/15 mL solution 15 ml PO BID Qty: 237 2RF Pepcid 20 mg tablet 20 mg PO BID Qty: 60 0RF ibuprofen 600 mg tablet 600 mg PO TID PRN (Reason: pain) Qty: 20 0RF cyclobenzaprine 10 mg tablet 10 mg PO TID Qty: 14 0RF Medrol (Juan) 4 mg tablets,dose pack See Rx Instructions .ROUTE .COMPLEX Qty: 21 0RF Rx Instructions: orally per package directions Discharge Orders: Discharge ED (Routine); Ordered 07/16/22 Ordered By: Rl Boswell Discharge Diet: Advance as tolerated Discharge Activity: Resume usual activity Patient Instructions: Abdominal Pain (ED) Coding Level of Care Code 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
[2022-07-16 02:43] VITALS: BP 104/64; PULSE 99; RESP 16; O2SAT 95
[2022-07-16] MEDS: acetaminophen 500 mg Tablet 1000 MG PO (02:46)
[2022-07-16] MEDS: metoclopramide 10 mg Tablet PO (02:46)
[2022-07-16 03:06] VITALS: BP 98/58; PULSE 77; RESP 16; O2SAT 95
[2022-07-16] MEDS: sodium chloride 0.9% 1,000 ML 999 ML IV (03:06)
[2022-07-16 03:08] LABS: Basophils # 0.1 10^3/uL (0.0-0.1); Basophils % 0.4 %; Eosinophils # 0.1 10^3/uL (0.0-0.8); Eosinophils % 0.6 %; Hemoglobin 13.1 g/dL (11.5-15.3); Lymphocytes # 2.1 10^3/uL (0.8-4.8); Lymphocytes % 17.2 %; Mean Corpuscular HGB Conc 34.5 g/dL (30.0-36.0); Mean Corpuscular Hemoglobin 28.9 pg (28.0-34.0); Mean Corpuscular Volume 83.7 fl (81-99); Mean Platelet Volume 11.1 fL (7.4-10.4); Monocytes # 1.1 10^3/uL (0.2-0.9); Monocytes % 9.3 %; Neutrophils # 8.63 10^3/uL (1.8-7.7); Nucleated Red Blood Cells % 0 %; Platelet Count 235 10^3/cmm (130-400); Red Blood Count 4.54 10^6/uL (4.1-5.3); Red Cell Distribution Width 11.9 % (12.1-15.1)
[2022-07-16 03:31] LABS: Alanine Aminotransferase 13 U/L (0-33); Albumin Level 3.9 g/dL (3.5-5.2); Alkaline Phosphatase 38 U/L (35-105); Anion Gap 13.5 (5-19); Aspartate Amino Transferase 16 U/L (0-32); Blood Urea Nitrogen 7 mg/dL (6-20); Calcium 9.2 mg/dL (8.5-10.5); Carbon Dioxide 22 mmol/L (22-29); Chloride 101 mmol/L (98-107); Creatinine Clr Calc Pharmacy 150.8405; Glomerular Filtration Rate 155.7 mL/min (90-130); Glucose 90 mg/dL (65-115); Osmolality Calculated 274 mOsm/kg (285-295); Potassium 3.5 mmol/L (3.5-5.1); Sodium 133 mmol/L (136-145); Total Bilirubin 0.2 mg/dL (0.15-1.2); Total Protein 6.9 g/dL (6.6-8.7)
[2022-07-16 03:35] VITALS: BP 112/57; PULSE 85; RESP 14; O2SAT 95
[2022-07-16 03:44] LABS: Add Urine Microscopic? YES; Bilirubin Urine Neg (Negative); Blood Urine Neg (Negative); Glucose Urine UA Norm (Normal); Ketones Urine Negative (Negative); Leukocyte Esterase Urine 2+ (Negative); Nitrate Urine Negative (Negative); Protein Urine Neg (Negative); Specific Gravity, Urine 1.015 (1.005-1.030); Urine Appearance SL Hazy (CLEAR); Urine Color Yellow (Yellow); Urobilinogen Urine Norm (Negative); pH Urine 6.5 (5-7)
[2022-07-16 03:45] LABS: Add Urine Culture? Yes; Bacteria Urine 1+ /hpf; RBC Urine 0-4 /hpf (0-2); Squamous Epithelial Cell Urine 0-4 /hpf (0-5); WBC Urine 15-25 /hpf (0-5)
[2022-07-16] MEDS: cephALEXin 500 mg Capsule PO (03:58)
[2022-07-16 03:59] VITALS: BP 110/78; PULSE 75; RESP 14; O2SAT 95
== END 2022-07-16 04:00 | disposition home or self-care (01) ==
PROVIDERS: Emergency Provider Emergency Medicine
DX: O23.41 Unspecified infection of urinary tract in pregnancy, first trimester (principal); N39.0 Urinary tract infection, site not specified; Z3A.09 9 weeks gestation of pregnancy; O26.891 Other specified pregnancy related conditions, first trimester; R10.9 Unspecified abdominal pain; O30.001 Twin pregnancy, unspecified number of placenta and unspecified number of amniotic sacs, first trimester
CPT/HCPCS: 80053; 81001; 85025; 87086; 96360; 99284; J7030; J8597

== ENCOUNTER 2022-08-06 19:52 | Emergency (ER) | payer OTHER, MEDICAID, SELFPAY ==
[2022-08-06 20:44] VITALS: BP 105/63; PULSE 69; RESP 16; TEMP 36.9; O2SAT 98; BMI 18.3
[2022-08-06 23:05] LABS: Basophils % 0.4 %; Eosinophils % 0.4 %; Hematocrit 41.4 % (37.0-47.0); Hemoglobin 13.7 g/dL (11.5-15.3); Lymphocytes # 2.4 10^3/uL (0.8-4.8); Lymphocytes % 22.4 %; Mean Corpuscular HGB Conc 33.1 g/dL (30.0-36.0); Mean Corpuscular Hemoglobin 28.8 pg (28.0-34.0); Mean Corpuscular Volume 87.2 fl (81-99); Mean Platelet Volume 11.4 fL (7.4-10.4); Monocytes % 9.6 %; Neutrophils % 66.9 %; Nucleated Red Blood Cells % 0 %; Platelet Count 217 10^3/cmm (130-400); Red Blood Count 4.75 10^6/uL (4.1-5.3); Red Cell Distribution Width 12.2 % (12.1-15.1); White Blood Count 10.5 10^3/uL (4.0-10.0)
== END 2022-08-07 01:29 | disposition left against medical advice (07) ==
PROVIDERS: Emergency Medicine; Emergency Provider Family Medicine; PCP Family Medicine
DX: Z53.21 Procedure and treatment not carried out due to patient leaving prior to being seen by health care provider (principal); N93.9 Abnormal uterine and vaginal bleeding, unspecified
CPT/HCPCS: 85025

== ENCOUNTER 2022-08-08 07:30 | Emergency (ER) | payer OTHER, MEDICAID, SELFPAY ==
[2022-08-08 07:37] VITALS: BP 114/67; PULSE 85; RESP 16; TEMP 36.5; O2SAT 97
--- NOTE | 2022-08-08 07:44 | USR_ITS ---
PROCEDURE INFORMATION: Exam: US , Limited Exam date and time: 08/08/2022 8:18 AM Age: 21 years old Clinical indication: Lmp or gestational age (in weeks): 17w5d; Other: Vaginal bleeding; ; Additional info: Confirm iup and viability, PT states twins LABS AND CLINICAL REPORTS: Last menstrual period start date: 04/06/2022 Gestational age (Established): 17 w 5 d Estimated due date (Established): 01/11/2023 TECHNIQUE: Imaging protocol: Real-time ultrasound of the maternal uterus with image documentation. Exam focused on the clinical indication. COMPARISON: US OB <= 14 wk fetus twins 07/13/2022 2:05 PM FINDINGS: Gestation: Intrauterine gestation. heart rate: 0 bpm BIOMETRY: Gestational age (AUA): 9 w 2 d by crown-rump length US/US OB limited [id number] IMPRESSION: Findings appear most consistent with demise, as no cardiac activity is seen.
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
[2022-08-08 08:08] LABS: Basophils # 0.1 10^3/uL (0.0-0.1); Basophils % 0.5 %; Eosinophils # 0.1 10^3/uL (0.0-0.8); Eosinophils % 0.6 %; Hematocrit 42.6 % (37.0-47.0); Hemoglobin 14.2 g/dL (11.5-15.3); Lymphocytes # 1.9 10^3/uL (0.8-4.8); Mean Corpuscular HGB Conc 33.3 g/dL (30.0-36.0); Mean Corpuscular Hemoglobin 28.9 pg (28.0-34.0); Mean Corpuscular Volume 86.8 fl (81-99); Monocytes % 8.9 %; Neutrophils # 8.47 10^3/uL (1.8-7.7); Neutrophils % 73.6 %; Nucleated Red Blood Cells % 0 %; Platelet Count 219 10^3/cmm (130-400); Red Blood Count 4.91 10^6/uL (4.1-5.3); Red Cell Distribution Width 12.3 % (12.1-15.1); White Blood Count 11.5 10^3/uL (4.0-10.0)
[2022-08-08 10:05] VITALS: BP 114/67; PULSE 85; RESP 16; TEMP 36.5; O2SAT 97
== END 2022-08-08 10:05 | disposition home or self-care (01) ==
PROVIDERS: Emergency Provider Family Medicine; PCP Family Medicine
DX: O03.4 Incomplete spontaneous abortion without complication (principal); O30.001 Twin pregnancy, unspecified number of placenta and unspecified number of amniotic sacs, first trimester; Z3A.13 13 weeks gestation of pregnancy
CPT/HCPCS: 76815; 84702; 85025; 99284

== ENCOUNTER 2022-08-12 20:04 | Emergency (ER) | payer OTHER, MEDICAID, SELFPAY ==
[2022-08-12 20:07] VITALS: BP 106/65; PULSE 80; RESP 16; O2SAT 98; BMI 18.0
[2022-08-12 20:57] LABS: Basophils # 0.1 10^3/uL (0.0-0.1); Basophils % 0.5 %; Eosinophils # 0.2 10^3/uL (0.0-0.8); Eosinophils % 1.1 %; Hematocrit 42.7 % (37.0-47.0); Hemoglobin 14.3 g/dL (11.5-15.3); Lymphocytes % 20.4 %; Mean Corpuscular HGB Conc 33.5 g/dL (30.0-36.0); Mean Corpuscular Hemoglobin 28.8 pg (28.0-34.0); Mean Corpuscular Volume 86.1 fl (81-99); Mean Platelet Volume 10.8 fL (7.4-10.4); Monocytes # 1.3 10^3/uL (0.2-0.9); Monocytes % 8.7 %; Neutrophils # 10.18 10^3/uL (1.8-7.7); Neutrophils % 68.8 %; Nucleated Red Blood Cells % 0 %; Platelet Count 245 10^3/cmm (130-400); Red Blood Count 4.96 10^6/uL (4.1-5.3); Red Cell Distribution Width 12.3 % (12.1-15.1); White Blood Count 14.8 10^3/uL (4.0-10.0)
[2022-08-12 21:01] VITALS: BP 123/51; PULSE 55; RESP 14; O2SAT 98
--- NOTE | 2022-08-12 21:08 | W.ED.PREGNAN ---
HPI - General: Chief complaint: OB/Uterine Contractions Stated complaint: MISCARRIAGE Time Seen by Provider: 08/12/22 20:24 Source: patient and EMS Mode of arrival: EMS Limitations: other (Mildly hard of hearing) History of Present Illness: See nursing assessment. Patient with complaints of suprapubic abdominal pain after she claims her water broke around 1830 this evening and then passed products of conception. She states that she passed saclike structure and placenta looking tissue. She states that she was recently diagnosed with demise of twin gestations. Patient was seen by her retail coverage merchandiser earlier today and told that she would have miscarriages of both fetuses soon. Blood type is O+ confirmed by lab. Patient denies any fever. See previous ER visit on 08/08/2022 Date of Last Menstrual Period: 02/14/20 Associated symptoms: Reports abdominal pain (Suprapubic cramping); Deny headache(s), nausea or vomiting Review of Systems Const: Denies: fever(s) or chills Eyes: Denies: change in vision ENMT: Denies: throat pain Card: Denies: chest pain or palpitations Resp: Denies: dyspnea or wheezing GI: Reports: abdominal pain (Suprapubic cramping); Denies: nausea or vomiting : Reports: other (Vaginal bleeding, passage of products of conception); Denies: flank pain Musc: Denies: neck pain or back pain Skin/Breast: Denies: rash or pruritus Neuro: Denies: headache(s) or numbness in extremities Psych: Denies: anxiety Michael/Lymph: Denies: enlarged lymph nodes PFSH ED PFSH: Surgical History S/P exploratory laparotomy Jejunal resection, Meckel's diverticulectomy and drainage of intra-abdominal abscess-[facility] 2016 Social History Smoking and tobacco status: never smoked Female Reproductive History: Date of last menstrual period: 02/14/20 Physical Exam Const: COMMON NORMALS: no acute distress, patient oriented x3, no limitations and well nourished GENERAL APPEARANCE: cooperative HENMT: COMMON NORMALS: normocephalic and atraumatic HEAD & SCALP: normocephalic and atraumatic FACE & SINUS: normal facial exam Eye: COMMON NORMALS: EOMs intact bilaterally Neck/C-Spine: COMMON NORMALS: full ROM, no lymphadenopathy, supple and no meningeal signs GENERAL: Yes normal visual inspection Lymph: LYMPHATIC: no lymphadenopathy noted Chest: COMMONS NORMALS: normal inspection of the chest and normal palpation of entire chest wall CHEST: No Ecchymosis present and No rash Resp: COMMON NORMALS: normal respiratory effort, No retractions and clear to auscultation bilaterally EFFORT & INSPECTION: No respiratory distress AUSCULTATION: clear to auscultation bilaterally Cardio: COMMON NORMALS: regular rate, regular rhythm and Peripheral pulses 2+ throughout JUGULAR VENOUS DISTENTION: no JVD RATE: regular rate RHYTHM: regular rhythm PERIPHERAL PULSES: Peripheral pulses 2+ throughout GI: COMMON NORMALS: Normal to inspection, nondistended, normoactive bowel sounds present and non-tender : OTHER: Examined attended by the nurse. Vulva appears normal. Patient has moderate amount of dark red blood in the vaginal vault. No foreign body seen. Cervix appears closed. Patient has cervical motion tenderness. No bimanual exam done. No foreign bodies within the vaginal vault. Extremity: COMMON NORMALS: normal to inspection, full ROM and capillary refill normal Neuro: COMMON NORMALS: patient oriented x3, CN's II-XII intact bilaterally, no focal motor deficits and no sensory deficits noted MENINGEAL SIGNS: Yes no meningeal signs Psych: COMMON NORMALS: mental status grossly normal and Normal thought process present THOUGHT PROCESS: Normal thought process present Skin: COMMON NORMALS: no rashes or lesions noted and no wounds GENERAL SKIN EXAM: no rashes or lesions noted Course Vital Signs: Vital signs: Vital Signs Pulse Rate 55 L 08/12/22 21:01 Respiratory Rate 14 08/12/22 21:01 Blood Pressure 123/51 08/12/22 21:01 Pulse Oximetry 98 08/12/22 21:01 Oxygen Delivery Me thod 08/12/22 20:07 MDM - OB/Uterine Contractions Medical Decision Making Spontaneous miscarriage of 1 twin. Reported demise by ultrasound on 08/08/2022. Will attempt to contact on-call retail coverage merchandiser for Dr. Galdamez. 1911: Discussed with retail coverage merchandiser Dr. Galdamez. He would like patient to have Cytotec 800 mg every 12 hours x 2 doses. He will have the patient follow-up in clinic on Wednesday for recheck. Lab Data 08/12/22 20:45 Laboratory Results WBC 14.8 10^3/uL (4.0-10.0) H 08/12/22 20:45 RBC 4.96 10^6/uL (4.1-5.3) 08/12/22 20:45 Hgb 14.3 g/dL (11.5-15.3) 08/12/22 20:45 Hct 42.7 % (37.0-47.0) 08/12/22 20:45 MCV 86.1 fl (81-99) 08/12/22 20:45 MCH 28.8 pg (28.0-34.0) 08/12/22 20:45 MCHC 33.5 g/dL (30.0-36.0) 08/12/22 20:45 RDW 12.3 % (12.1-15.1) 08/12/22 20:45 Plt Count 245 10^3/cmm (130-400) 08/12/22 20:45 MPV 10.8 fL (7.4-10.4) H 08/12/22 20:45 Neut % (Auto) 68.8 % 08/12/22 20:45 Lymph % (Auto) 20.4 % 08/12/22 20:45 [place] % (Auto) 8.7 % 08/12/22 20:45 Eos % (Auto) 1.1 % 08/12/22 20:45 Baso % (Auto) 0.5 % 08/12/22 20:45 Neut # (Auto) 10.18 10^3/uL (1.8-7.7) H 08/12/22 20:45 Lymph # (Auto) 3.0 10^3/uL (0.8-4.8) 08/12/22 20:45 [place] # (Auto) 1.3 10^3/uL (0.2-0.9) H 08/12/22 20:45 Eos # (Auto) 0.2 10^3/uL (0.0-0.8) 08/12/22 20:45 Baso # (Auto) 0.1 10^3/uL (0.0-0.1) 08/12/22 20:45 Nucleated RBC % (auto) 0 % 08/12/22 20:45 Nucleated RBCs # 0.0 /100WBC 08/12/22 20:45 Other Data Ordering Provider/Ordering MD: Frantz Saavedra DO Date of Service: 08/08/22 Procedure(s): US OB limited 79647 Accession Number(s): [id number] Report Number: [id number] PROCEDURE INFORMATION: Exam: US , Limited Exam date and time: 08/08/2022 8:18 AM Age: 21 years old Clinical indication: Lmp or gestational age (in weeks): 17w5d; Other: Vaginal bleeding; ; Additional info: Confirm iup and viability, PT states twins LABS AND CLINICAL REPORTS: Last menstrual period start date: 04/06/2022 Gestational age (Established): 17 w 5 d Estimated due date (Established): 01/11/2023 TECHNIQUE: Imaging protocol: Real-time ultrasound of the maternal uterus with image documentation. Exam focused on the clinical indication. COMPARISON: US OB <= 14 wk fetus twins 07/13/2022 2:05 PM FINDINGS: Gestation: Intrauterine gestation. heart rate: 0 bpm BIOMETRY: Gestational age (AUA): 9 w 2 d by crown-rump length US/US OB limited [id number] IMPRESSION: Findings appear most consistent with demise, as no cardiac activity is seen. ? Dictated By: Jessy Hoffmann MD Signed By: Jessy Hoffmann MD Signed Date/Time: 08/08/22 0955 Discharge Plan Discharge Patient Disposition: Home Clinical Impression: Spontaneous miscarriage Condition: Stable Prescriptions: New Cytotec 200 mcg tablet 800 mcg PO ONCE Qty: 4 0RF Rx Instructions: for miscarriage. Take 800mcg po one time at 1000 AM on 08/13/22 No Action PNV cmb#95-ferrous fumarate-FA [] 28 mg iron- 800 mcg Tablet 1 tab PO DAILY lactulose 10 gram/15 mL solution 15 ml PO BID Qty: 237 2RF Pepcid 20 mg tablet 20 mg PO BID Qty: 60 0RF ibuprofen 600 mg tablet 600 mg PO TID PRN (Reason: pain) Qty: 20 0RF cyclobenzaprine 10 mg tablet 10 mg PO TID Qty: 14 0RF Medrol (Juan) 4 mg tablets,dose pack See Rx Instructions .ROUTE .COMPLEX Qty: 21 0RF Rx Instructions: orally per package directions Discharge Orders: Discharge ED (Routine); Ordered 08/12/22 Ordered By: Gus Blake Referrals: Mark Galdamez MD [Primary Care Provider] - 08/14/22 9:00 am (Call clinic for appointment time on Wednesday.) Discharge Diet: Advance as tolerated Discharge Activity: Increase activity as tolerated Patient Instructions: Miscarriage (ED) Activity Restrictions/Additional Instructions: Drink plenty of fluids. Take Cytotec tablet that was prescribed at 10 AM on August 13, 2022. Follow-up with your retail coverage merchandiser on Wednesday in his clinic for recheck. You will need to call and make an appointment. Your blood type is O+. May take Tylenol or ibuprofen as needed for discomfort. Coding Level of Care Code ED Visual Specialist for Cyndig Fwshakir History Comprehensive Exam Comprehensive Medical Decision Making High Complexity
[2022-08-12] MEDS: miSOPROStol 200 mcg Tablet 800 MCG PO (21:36)
== END 2022-08-12 21:50 | disposition home or self-care (01) ==
PROVIDERS: Emergency Provider Family Medicine; PCP Family Medicine
DX: O03.9 Complete or unspecified spontaneous abortion without complication (principal); O30.002 Twin pregnancy, unspecified number of placenta and unspecified number of amniotic sacs, second trimester; Z3A.17 17 weeks gestation of pregnancy
CPT/HCPCS: 85025; 88305; 99283

== ENCOUNTER 2024-08-28 20:23 | Emergency (ER) | payer MEDICAID, SELFPAY ==
[2024-08-28] VITALS (7 sets, daily range): BP systolic 95–110; BP diastolic 52–70; PULSE 51–74; RESP 16; TEMP 36.7; O2SAT 96–99
[2024-08-28 21:08] LABS: Bilirubin Urine Negative (Negative); Blood Urine Negative (Negative); Glucose Urine UA Negative (Normal); Ketones Urine Negative (Negative); Leukocyte Esterase Urine Negative (Negative); Nitrate Urine Negative (Negative); Protein Urine Negative (Negative); Specific Gravity, Urine 1.022 (1.005-1.030); Urine Appearance Clear (CLEAR); Urine Color Yellow (Yellow); pH Urine 6.5 (5-7)
[2024-08-28 21:13] LABS: Basophils # 0.1 10^3/uL (0.0-0.1); Basophils % 0.8 %; Eosinophils # 0.2 10^3/uL (0.0-0.8); Eosinophils % 1.3 %; Hematocrit 39.4 % (36-47); Lymphocytes # 2.7 10^3/uL (0.8-4.8); Lymphocytes % 24.5 %; Mean Corpuscular Hemoglobin 28.5 pg (27-33); Mean Corpuscular Volume 86.4 fl (85-98); Mean Platelet Volume 10.7 fL (7.4-10.4); Monocytes # 1.2 10^3/uL (0.2-0.9); Monocytes % 11.1 %; Neutrophils # 6.91 10^3/uL (1.8-7.7); Neutrophils % 62.1 %; Nucleated Red Blood Cells % 0 %; Platelet Count 243 10^3/cmm (157-399); Red Blood Count 4.56 10^6/uL (3.85-5.65); White Blood Count 11.14 10^3/uL (3.29-11.43)
[2024-08-28 21:13] LABS: Add Urine Microscopic? YES; Bacteria Urine None Seen /hpf; Hyaline Casts Urine 0-4 /lpf; RBC Urine 0-2 /hpf (0-2); Squamous Epithelial Cell Urine 0-5 /hpf (0-5); WBC Urine 0-5 /hpf (0-5)
--- NOTE | 2024-08-28 21:20 | XRR_ITS ---
PROCEDURE INFORMATION: Exam: XR Abdomen Exam date and time: 08/28/2024 9:52 PM Age: 23 years old Clinical indication: Constipation TECHNIQUE: Imaging protocol: Radiologic exam of the abdomen. Views: Frontal supine view of the abdomen. 1 View. COMPARISON: CR XR abdomen min 2V [id number] 11/29/2020 6:24 AM FINDINGS: Gastrointestinal tract: Normal bowel gas pattern. Small to moderate stool throughout the colon. Intraperitoneal space: Suture line in the left hemiabdomen. Bones/joints: Unremarkable. XR/XR KUB portable [id number] IMPRESSION: Small to moderate colonic stool can be seen with constipation.
[2024-08-28 21:30] LABS: Alanine Aminotransferase 17 U/L (0-33); Albumin Level 3.8 g/dL (3.5-5.2); Alkaline Phosphatase 53 U/L (35-105); Anion Gap 12.4 (5-19); Aspartate Amino Transferase 23 U/L (0-32); Blood Urea Nitrogen 9 mg/dL (6-20); C Reactive Protein 9.8 mg/L (0.0-4.9); Calcium 8.8 mg/dL (8.5-10.5); Carbon Dioxide 26 mmol/L (22-29); Chloride 102 mmol/L (98-107); Creatinine Clr Calc Pharmacy 121.4994; Globulin 3.1 g/dL (1.3-4.6); Glomerular Filtration Rate 123.9 mL/min (90-130); Glucose 84 mg/dL (65-115); HCG, Serum Qual Negative (Negative); Lipase 32 U/L (13-60); Osmolality Calculated 282 mOsm/kg (285-295); Potassium 3.4 mmol/L (3.5-5.1); Sodium 137 mmol/L (136-145); Total Bilirubin 0.3 mg/dL (0.15-1.2); Total Protein 6.9 g/dL (6.6-8.7)
--- NOTE | 2024-08-28 21:34 | ED_ITS ---
HPI - Abdominal Pain 2 General: Chief Complaint: Abdominal Pain Stated Complaint: abd pain now up into chest and pain walking Time Seen by Provider: 08/28/24 20:47 History of Present Illness: 23-year-old female presenting with abdom inal pain. Abdominal pain is epigastric with some generalized pain as well. She says that she has not had a normal bowel movement in 2 weeks. She has a history of constipation. She has been on lactulose without any improvement. Pain radiates to her chest at times. No vomiting. Some nausea. No blood in the stool. No fever. Related Data Date of Last Menstrual Period: 08/21/24 Home Medications Medication Instructions Recorded Confirmed vit no.95-ferrous 1 tab PO DAILY 04/10/20 11/27/20 fumarate 28 mg-folic acid 800 mcg tablet () Previous Rx's Medication Instructions Recorded lactulose 10 gram/15 mL oral 15 ml PO BID #237 mL 11/29/20 solution cyclobenzaprine 10 mg tablet 10 mg PO TID #14 tabs 12/17/21 ibuprofen 600 mg tablet 600 mg PO TID PRN pain #20 tabs 12/17/21 methylprednisolone 4 mg tablets in See Rx Instructions PO .COMPLEX 12/17/21 a dose pack (Medrol (Juan)) #21 ea famotidine 20 mg tablet (Pepcid) 20 mg PO BID #60 tabs 06/28/22 misoprostol 200 mcg tablet 800 mcg (4 x 200 mcg) PO ONCE #4 08/12/22 (Cytotec) tabs Allergies Allergy/AdvReac Type Severity Reaction Status Date / Time caramel Allergy ALGY-Rash Verified 08/28/24 20:35 [place] AdvReac ADR-Vomitin Uncoded 08/28/24 20:35 g PFSH ED 2 PFSH: Surgical History S/P exploratory laparotomy Jejunal resection, Meckel's diverticulectomy and drainage of intra-abdominal abscess-[facility] 2016 Social History Smoking and tobacco/nicotine status: never used tobacco/nicotine Female Reproductive History: Date of last menstrual period: 08/21/24 Physical Exam 2 Const: COMMON NORMALS: no acute distress GENERAL APPEARANCE: cooperative; not ill appearing and not frail appearing HENMT: COMMON NORMALS: normocephalic, atraumatic and Normal external nose present HEAD & SCALP: normocephalic and atraumatic FACE & SINUS: normal facial exam and face symmetric NOSE: Normal external nose present Eye: COMMON NORMALS: Equal, round and reactive pupils present and EOMs intact bilaterally PUPIL: Yes Equal, round and reactive pupils present Neck/C-Spine: GENERAL: Yes trachea midline Chest: CHEST: Yes Symmetrical chest wall rise Resp: COMMON NORMALS: normal respiratory effort, No retractions, No use of accessory muscles and clear to auscultation bilaterally AUSCULTATION: clear to auscultation bilaterally Cardio: COMMON NORMALS: regular rate and regular rhythm RATE: regular rate RHYTHM: regular rhythm GI: COMMON NORMALS: Normal to inspection, nondistended, normoactive bowel sounds present AUSCULTATION: Yes Hypoactive bowel sounds present P ALPATION: Yes Tenderness to palpation present (GI) (Generalized) Extremity: COMMON NORMALS: no pedal edema Neuro: FRANNY COMA SCALE: document GCS findings [place] coma scale eye opening: Spontaneous [place] coma scale verbal response: Orientated Franny coma scale motor response: Obey commands [place] coma scale total score: 15 S ENSORY EXAM: Yes extremities (intact) Psych: COMMON NORMALS: speech normal SPEECH: Yes normal speech Skin: COMMON NORMALS: no rashes or lesions noted GENERAL SKIN EXAM: no rashes or lesions noted Course 2 Vital Signs: Vital signs: Vital Signs Temperature 98.0 F 08/28/24 20:31 Pulse Rate 51 L 08/28/24 23:44 Respiratory Rate 16 08/28/24 23:44 Blood Pressure 98/58 08/28/24 23:44 Pulse Oximetry 98 08/28/24 23:44 Oxygen Delivery Me thod Room Air 08/28/24 22:30 MDM - Abdominal Pain Medical Decision Making This patient has a history of jejunal resection and Meckel's diverticulectomy in 2017. She has chronic constipation problems. Her white blood cell count is 11 with no left shift. Hemoglobin is 13. Laboratories otherwise not remarkable. KUB shows small to moderate amount of colonic stool with no obstructive pattern. She be given mag citrate. She can continue the lactulose she has at home Lab Data 08/28/24 21:07 08/28/24 21:07 Labs/Radiology: Radiology Impressions KUB X-Ray 08/28/24 21:20 IMPRESSION: Small to moderate colonic stool can be seen with constipation. Laboratory Results WBC 11.14 10^3/uL (3.29-11.43) 08/28/24 21:07 RBC 4.56 10^6/uL (3.85-5.65) 08/28/24 21:07 Hgb 13.00 g/dL (11.27-16.99) 08/28/24 21:07 Hct 39.4 % (36-47) 08/28/24 21:07 MCV 86.4 fl (85-98) 08/28/24 21:07 MCH 28.5 pg (27-33) 08/28/24 21:07 MCHC 33.0 g/dL (30-55) 08/28/24 21:07 RDW 12.0 % (12.1-15.1) L 08/28/24 21:07 Plt Count 243 10^3/cmm (157-399) 08/28/24 21:07 MPV 10.7 fL (7.4-10.4) H 08/28/24 21:07 Neut % (Auto) 62.1 % 08/28/24 21:07 Lymph % (Auto) 24.5 % 08/28/24 21:07 [place] % (Auto) 11.1 % 08/28/24 21:07 Eos % (Auto) 1.3 % 08/28/24 21:07 Baso % (Auto) 0.8 % 08/28/24 21:07 Neut # (Auto) 6.91 10^3/uL (1.8-7.7) 08/28/24 21:07 Lymph # (Auto) 2.7 10^3/uL (0.8-4.8) 08/28/24 21:07 [place] # (Auto) 1.2 10^3/uL (0.2-0.9) H 08/28/24 21:07 Eos # (Auto) 0.2 10^3/uL (0.0-0.8) 08/28/24 21:07 Baso # (Auto) 0.1 10^3/uL (0.0-0.1) 08/28/24 21:07 Nucleated RBC % (auto) 0 % 08/28/24 21:07 Nucleated RBCs # 0.0 /100WBC 08/28/24 21:07 Sodium 137 mmol/L (136-145) 08/28/24 21:07 Potassium 3.4 mmol/L (3.5-5.1) L 08/28/24 21:07 Chloride 102 mmol/L (98-107) 08/28/24 21:07 Carbon Dioxide 26 mmol/L (22-29) 08/28/24 21:07 Anion Gap 12.4 (5-19) 08/28/24 21:07 BUN 9 mg/dL (6-20) 08/28/24 21:07 Creatinine 0.6 mg/dL (0.5-0.9) 08/28/24 21:07 GFR Calculation 123.9 mL/min (90-130) 08/28/24 21:07 Glucose 84 mg/dL (65-115) 08/28/24 21:07 Calculated Osmolality 282 mOsm/kg (285-295) L 08/28/24 21:07 Calcium 8.8 mg/dL (8.5-10.5) 08/28/24 21:07 Total Bilirubin 0.3 mg/dL (0.15-1.2) 08/28/24 21:07 AST 23 U/L (0-32) 08/28/24 21:07 ALT 17 U/L (0-33) 08/28/24 21:07 Alkaline Phosphatase 53 U/L (35-105) 08/28/24 21:07 C-Reactive Protein 9.8 mg/L (0.0-4.9) H 08/28/24 21:07 Total Protein 6.9 g/dL (6.6-8.7) 08/28/24 21:07 Albumin 3.8 g/dL (3.5-5.2) 08/28/24 21:07 Globulin 3.1 g/dL (1.3-4.6) 08/28/24 21:07 Lipase 32 U/L (13-60) 08/28/24 21:07 HCG, Qual Negative (Negative) 08/28/24 21:07 Urine Color Yellow (Yellow) 08/28/24 20:38 Urine Appearance Clear (CLEAR) 08/28/24 20:38 Urine pH 6.5 (5-7) 08/28/24 20:38 Ur Specific [place] 1.022 (1.005-1.030) 08/28/24 20:38 Urine Protein Negative (Negative) 08/28/24 20:38 Urine Glucose (UA) Negative (Normal) 08/28/24 20:38 Urine Ketones Negative (Negative) 08/28/24 20:38 Urine Blood Negative (Negative) 08/28/24 20:38 Urine Nitrate Negative (Negative) 08/28/24 20:38 Urine Bilirubin Negative (Negative) 08/28/24 20:38 Urine Urobilinogen 1.0 mg/dL (Negative) 08/28/24 20:38 Ur Leukocyte Esterase Negative (Negative) 08/28/24 20:38 Urine RBC 0-2 /hpf (0-2) 08/28/24 20:38 Urine WBC 0-5 /hpf (0-5) 08/28/24 20:38 Ur Squamous Epith Cells 0-5 /hpf (0-5) 08/28/24 20:38 Amorphous Sediment Not Reportable 08/28/24 20:38 Urine Bacteria None seen /hpf (NONE) 08/28/24 20:38 Hyaline Casts 0-4 /lpf H 08/28/24 20:38 All radiology interpretation(s) finalized by discharge Discharge Plan Discharge Patient Disposition: Home Clinical Impression: Constipation Condition: Stable Prescriptions: No Action PNV cmb#95-ferrous fumarate-FA [] 28 mg iron- 800 mcg Tablet 1 tab PO DAILY lactulose 10 gram/15 mL solution 15 ml PO BID Qty: 237 2RF Pepcid 20 mg tablet 20 mg PO BID Qty: 60 0RF Cytotec 200 mcg tablet 800 mcg PO ONCE Qty: 4 0RF Rx Instructions: for miscarriage. Take 800mcg po one time at 1000 AM on 08/13/22 ibuprofen 600 mg tablet 600 mg PO TID PRN (Reason: pain) Qty: 20 0RF cyclobenzaprine 10 mg tablet 10 mg PO TID Qty: 14 0RF Medrol (Juan) 4 mg tablets,dose pack See Rx Instructions .ROUTE .COMPLEX Qty: 21 0RF Rx Instructions: orally per package directions Discharge Orders: Discharge ED (Routine); Ordered 08/28/24 Ordered By: César Muñiz Referrals: Mark Galdamez MD [Primary Care Provider] - 4-7 days Patient Instructions: Constipation (ED), Opioid Safety, Pain Management Activity Restrictions/Additional Instructions: Use the medication you were prescribed from the emergency department. You may continue the lactulose you have at home following this. Return for fever, vomiting liquids or medications, uncontrolled pain, other concerning symptoms. See your doctor next week. Call for appointment. Coding Level of Care Code ED Malt Liquors Sales Representative for Logan Paniagua
[2024-08-28] MEDS: magnesium citrate Btl 296 mL PO (23:49)
== END 2024-08-28 23:50 | disposition home or self-care (01) ==
PROVIDERS: Emergency Provider Emergency Medicine; PCP Family Medicine
DX: K59.00 Constipation, unspecified (principal)
CPT/HCPCS: 36415; 74018; 80053; 81001; 83690; 84703; 85025; 86140; 99284

== ENCOUNTER 2024-12-02 06:35 | Emergency (ER) | payer MEDICAID, SELFPAY ==
[2024-12-02 06:39] VITALS: BP 118/71; PULSE 58; RESP 18; TEMP 36.9; O2SAT 100; BMI 18.8
[2024-12-02 07:02] LABS: Basophils # 0.1 10^3/uL (0.0-0.1); Basophils % 0.8 %; Eosinophils # 0.1 10^3/uL (0.0-0.8); Hematocrit 42.8 % (36-47); Lymphocytes # 2.4 10^3/uL (0.8-4.8); Mean Corpuscular HGB Conc 33.2 g/dL (30-55); Mean Corpuscular Hemoglobin 28.4 pg (27-33); Mean Corpuscular Volume 85.6 fl (85-98); Mean Platelet Volume 10.5 fL (7.4-10.4); Monocytes # 0.9 10^3/uL (0.2-0.9); Monocytes % 9.3 %; Neutrophils # 6.35 10^3/uL (1.8-7.7); Neutrophils % 64.6 %; Nucleated Red Blood Cells % 0 %; Platelet Count 262 10^3/cmm (157-399); Red Cell Distribution Width 12.6 % (12.1-15.1); White Blood Count 9.84 10^3/uL (3.29-11.43)
[2024-12-02] MEDS: ondansetron 2 mg/ML SDV 2 mL 8 MG IVP (07:02)
--- NOTE | 2024-12-02 07:04 | ED_ITS ---
HPI - Nausea/Vomiting/Diarrhea 2 General: Chief complaint: Nausea/Vomiting/Diarrhea Stated complaint: n/v, headache Time Seen by Provider: 12/02/24 06:52 History of Present Illness: 23-year-old female with no significant m edical history presents emergency room with nausea vomiting and diarrhea. She said it started this morning. She has had some heartburn. Symptoms started about 430 in her work center here. No abdominal pain. Related Data Home Medications ?Medication ?Instructions ?Recorded ?Confirmed vit no.95-ferrous 1 tab PO DAILY 04/10/20 fumarate 28 mg-folic acid 800 mcg tablet () Previous Rx's ?Medication ?Instructions ?Recorded lactulose 10 gram/15 mL oral 15 ml PO BID #237 mL 11/05 02/24 solution cyclobenzaprine 10 mg tablet 10 mg PO TID #14 tabs ibuprofen 600 mg tablet 600 mg PO TID PRN pain #20 t abs 12/17/21 methylprednisolone 4 mg tablets in See Rx Instructions PO .COMPLEX 12/17/21 a dose pack (Medrol (Juan)) #21 ea famotidine 20 mg tablet (Pepcid) 20 mg PO BID #60 tabs 06/28/22 misoprostol 200 mcg tablet 800 mcg (4 x 200 mcg) PO ON CE #4 08/12/22 (Cytotec) tabs ondansetron 4 mg disintegrating 4 mg PO Q8H PRN nausea and 12/02/24 tablet vomiting #10 tabs Allergies Allergy/AdvReac Type Severity Reaction Status Date / Time caramel Allergy ALGY-Rash Verified 08/28/24 20:35 [place] AdvReac ADR-Vomitin Uncoded 08/28/24 20:35 g Review of Systems 2 Narrative: Constitutional symptoms: Negative except as documented in HPI. Skin symptoms: Negative except as documented in HPI. Eye symptoms: Negative except as documented in HPI. ENMT symptoms: Negative except as documented in HPI. Respiratory symptoms: Negative except as documented in HPI. Cardiovascular symptoms: Negative except as documented in HPI. Gastrointestinal symptoms: Negative except as documented in HPI. Genitourinary symptoms: Negative except as documented in HPI. Musculoskeletal symptoms: Negative except as documented in HPI. Neurologic symptoms: Negative except as documented in HPI. Psychiatric symptoms: Negative except as documented in HPI. Endocrine symptoms: Negative except as documented in HPI. [facility]LY [facility] ED 2 PFSH: Surgical History S/P exploratory laparotomy Jejunal resection, Meckel's diverticulectomy and drainage of intra-abdominal abscess-[facility] 2016 Social History Smoking and tobacco/nicotine status: never used tobacco/nicotine Female Reproductive History: Date of last menstrual period: 11/11/24 Physical Exam 2 Narrative: EXAM NARRATIVE: General: Alert, no acute distress. Skin: Warm, dry. Head: Normocephalic, atraumatic. Neck: Supple, trachea midline. Eye: Extraocular movements are intact. Ears, nose, mouth and throat: mucosa moist. Cardiovascular: Regular, Normal peripheral perfusion. Respiratory: Lungs are clear to auscultation, respirations are non-labored, breath sounds are equal, Symmetrical chest wall expansion. Gastrointestinal: Soft, Nontender, Non distended Musculoskeletal: Normal ROM, no deformity. Neurological: Alert and oriented, No focal neurological deficit observed. Psychiatric: Cooperative, appropriate mood & affect. Course 2 Vital Signs: Vital signs: Vital Signs Temperature 98.5 F 12/02/24 06:39 Pulse Rate 58 L 12/02/24 07:12 Respiratory Rate 18 12/02/24 06:39 Blood Pressure 95/44 12/02/24 07:12 Pulse Oximetry 96 12/02/24 07:12 Oxygen Delivery Me thod Room Air 12/02/24 06:39 MDM - Nausea/Vomiting/Diarrhea Medical Decision Making Medical decision making: Differential diagnosis for this patient with nausea and vomiting including but not limited to and based on the above HPI, review of systems and physical exam: Urinary tract infection. Appendicitis. Cholecystis. colitis. small bowel obstruction. crohn's flare. pancreatitis. gastritis. peptic ulcer. cyclic vomiting. Viral illness. Influenza. COVID. Orders placed to evaluate differential diagnosis based on the above differential, HPI and physical exam Lab Review: Laboratory results were reviewed and interpreted by myself the emergency room physician. Lab work is unremarkable. No leukocytosis. No anemia. No renal failure. No urinary tract infection. hCG is negative. I reviewed the patient's medical record. Reexamination: Patient is now tolerating p.o. Still little bit nauseous but that she feels well enough to return home. Antiemetics have been called into her pharmacy. Assessment and plan: Gastroenteritis ?IV Pepcid and IV Zofran. - Discharged home - Discussed plan with patient. Answered any questions. - Evaluation and treatment of this problem were appropriate in the emergency setting. Lab Data 12/02/24 06:56 12/02/24 06:56 Laboratory Results WBC 9.84 10^3/uL (3.29-11.43) 12/02/24 06:56 RBC 5.00 10^6/uL (3.85-5.65) 12/02/24 06:56 Hgb 14.20 g/dL (11.27-16.99) 12/02/24 06:56 Hct 42.8 % (36-47) 12/02/24 06:56 MCV 85.6 fl (85-98) 12/02/24 06:56 MCH 28.4 pg (27-33) 12/02/24 06:56 MCHC 33.2 g/dL (30-55) 12/02/24 06:56 RDW 12.6 % (12.1-15.1) 12/02/24 06:56 Plt Count 262 10^3/cmm (157-399) 12/02/24 06:56 MPV 10.5 fL (7.4-10.4) H 12/02/24 06:56 Neut % (Auto) 64.6 % 12/02/24 06:56 Lymph % (Auto) 24.0 % 12/02/24 06:56 [place] % (Auto) 9.3 % 12/02/24 06:56 Eos % (Auto) 1.0 % 12/02/24 06:56 Baso % (Auto) 0.8 % 12/02/24 06:56 Neut # (Auto) 6.35 10^3/uL (1.8-7.7) 12/02/24 06:56 Lymph # (Auto) 2.4 10^3/uL (0.8-4.8) 12/02/24 06:56 [place] # (Auto) 0.9 10^3/uL (0.2-0.9) 12/02/24 06:56 Eos # (Auto) 0.1 10^3/uL (0.0-0.8) 12/02/24 06:56 Baso # (Auto) 0.1 10^3/uL (0.0-0.1) 12/02/24 06:56 Nucleated RBC % (auto) 0 % 12/02/24 06:56 Nucleated RBCs # 0.0 /100WBC 12/02/24 06:56 Sodium 138 mmol/L (136-145) 12/02/24 06:56 Potassium 4.0 mmol/L (3.5-5.1) 12/02/24 06:56 Chloride 105 mmol/L (98-107) 12/02/24 06:56 Carbon Dioxide 23 mmol/L (22-29) 12/02/24 06:56 Anion Gap 14.0 (5-19) 12/02/24 06:56 BUN 17 mg/dL (6-20) 12/02/24 06:56 Creatinine 0.7 mg/dL (0.5-0.9) 12/02/24 06:56 GFR Calculation 103.7 mL/min (90-130) 12/02/24 06:56 Glucose 91 mg/dL (65-115) 12/02/24 06:56 Calculated Osmolality 287 mOsm/kg (285-295) 12/02/24 06:56 Calcium 9.1 mg/dL (8.5-10.5) 12/02/24 06:56 Total Bilirubin 0.2 mg/dL (0.15-1.2) 12/02/24 06:56 AST 19 U/L (0-32) 12/02/24 06:56 ALT 23 U/L (0-33) 12/02/24 06:56 Alkaline Phosphatase 48 U/L (35-105) 12/02/24 06:56 Total Protein 7.5 g/dL (6.6-8.7) 12/02/24 06:56 Albumin 4.2 g/dL (3.5-5.2) 12/02/24 06:56 Globulin 3.3 g/dL (1.3-4.6) 12/02/24 06:56 Lipase 34 U/L (13-60) 12/02/24 06:56 HCG, Qual Negative (Negative) 12/02/24 07:04 Urine Color Yellow (Yellow) 12/02/24 07:04 Urine Appearance Clear (CLEAR) 12/02/24 07:04 Urine pH 5 (5-7) 12/02/24 07:04 Ur Specific [place] 1.015 (1.005-1.030) 12/02/24 07:04 Urine Protein Neg (Negative) 12/02/24 07:04 Urine Glucose (UA) Norm (Normal) 12/02/24 07:04 Urine Ketones Negative (Negative) 12/02/24 07:04 Urine Blood Neg (Negative) 12/02/24 07:04 Urine Nitrate Negative (Negative) 12/02/24 07:04 Urine Bilirubin Neg (Negative) 12/02/24 07:04 Urine Urobilinogen Norm mg/dL (Negative) 12/02/24 07:04 Ur Leukocyte Esterase 1+ (Negative) H 12/02/24 07:04 Urine RBC 0-2 /hpf (0-2) 12/02/24 07:04 Urine WBC 0-5 /hpf (0-5) 12/02/24 07:04 Ur Squamous Epith Cells 0-5 /hpf (0-5) 12/02/24 07:04 Amorphous Sediment Not Reportable 12/02/24 07:04 Urine Bacteria None seen /hpf (NONE) 12/02/24 07:04 Hyaline Casts 0-4 /lpf H 12/02/24 07:04 No radiology studies performed this visit Discharge Plan Discharge Patient Disposition: Home Clinical Impression: Gastroenteritis Condition: Stable Prescriptions: New ondansetron 4 mg tablet,disintegrating 4 mg PO Q8H PRN (Reason: nausea and vomiting) Qty: 10 0RF No Action PNV cmb#95-ferrous fumarate-FA [] 28 mg iron- 800 mcg Tablet 1 tab PO DAILY lactulose 10 gram/15 mL solution 15 ml PO BID Qty: 237 2RF Pepcid 20 mg tablet 20 mg PO BID Qty: 60 0RF Cytotec 200 mcg tablet 800 mcg PO ONCE Qty: 4 0RF Rx Instructions: for miscarriage. Take 800mcg po one time at 1000 AM on 08/13/22 ibuprofen 600 mg tablet 600 mg PO TID PRN (Reason: pain) Qty: 20 0RF cyclobenzaprine 10 mg tablet 10 mg PO TID Qty: 14 0RF Medrol (Juan) 4 mg tablets,dose pack See Rx Instructions .ROUTE .COMPLEX Qty: 21 0RF Rx Instructions: orally per package directions Discharge Orders: Discharge ED (Routine); Ordered 12/02/24 Ordered By: Ahsley Ruiz Referrals: Mark Galdamez MD [Primary Care Provider] - Discharge Diet: Advance as tolerated Patient Instructions: Gastroenteritis (ED), Opioid Safety, Pain Management Activity Restrictions/Additional Instructions: Thank you for choosing [facility] for your healthcare needs today. Please realize this is an emergency room and that we are providing you with a medical screening exam and this may not be complete and all inclusive of all the testing and or work up that you may need to determine your ailment or severity of your illness. You have been screened and evaluated and felt safe for discharge. Health conditions do change or evolve sometimes and as such it is important that you follow up with your Primary Doctor to be re checked, 3-5 days is a general good time frame for follow up. You are always welcome to return to the ED for re assessment if your symptoms are worsening or you have new concerns Print Language: Ukrainian Coding Level of Care Code ED Parts Cleaner for Logan Paniagua
[2024-12-02 07:12] VITALS: BP 95/44; PULSE 58; O2SAT 96
[2024-12-02 07:14] LABS: HCG Qualitative Urine. Negative (Negative)
[2024-12-02 07:16] LABS: Bacteria Urine None Seen /hpf; Hyaline Casts Urine 0-4 /lpf; RBC Urine 0-2 /hpf (0-2); Squamous Epithelial Cell Urine 0-5 /hpf (0-5); WBC Urine 0-5 /hpf (0-5)
[2024-12-02] MEDS: famotidine 20 mg/2 mL INJ 40 MG IVP (07:18)
[2024-12-02 07:20] LABS: Bilirubin Urine Neg (Negative); Blood Urine Neg (Negative); Glucose Urine UA Norm (Normal); Ketones Urine Negative (Negative); Leukocyte Esterase Urine 1+ (Negative); Nitrate Urine Negative (Negative); Protein Urine Neg (Negative); Specific Gravity, Urine 1.015 (1.005-1.030); Urine Appearance Clear (CLEAR); Urine Color Yellow (Yellow); Urobilinogen Urine Norm (Negative); pH Urine 5 (5-7)
[2024-12-02 07:22] LABS: Alanine Aminotransferase 23 U/L (0-33); Albumin Level 4.2 g/dL (3.5-5.2); Alkaline Phosphatase 48 U/L (35-105); Aspartate Amino Transferase 19 U/L (0-32); Blood Urea Nitrogen 17 mg/dL (6-20); Calcium 9.1 mg/dL (8.5-10.5); Carbon Dioxide 23 mmol/L (22-29); Chloride 105 mmol/L (98-107); Globulin 3.3 g/dL (1.3-4.6); Glomerular Filtration Rate 103.7 mL/min (90-130); Glucose 91 mg/dL (65-115); Lipase 34 U/L (13-60); Osmolality Calculated 287 mOsm/kg (285-295); Sodium 138 mmol/L (136-145); Total Bilirubin 0.2 mg/dL (0.15-1.2); Total Protein 7.5 g/dL (6.6-8.7)
[2024-12-02 07:57] VITALS: BP 103/63; PULSE 70; O2SAT 99
[2024-12-02 08:12] LABS: Influenza A NEGATIVE (Negative); Influenza B NEGATIVE (Negative); Respiratory Syncytial Virus Ce NEGATIVE (Negative); SARS-CoV-2 PCR NEGATIVE (Negative)
== END 2024-12-02 07:59 | disposition home or self-care (01) ==
PROVIDERS: Emergency Provider Emergency Medicine; PCP Family Medicine
DX: K52.9 Noninfective gastroenteritis and colitis, unspecified (principal)
CPT/HCPCS: 36415; 80053; 81001; 81025; 83690; 85025; 87637; 96374; 96375; 99284; J2405; J3490

== ENCOUNTER 2025-02-26 08:35 | Emergency (ER) | payer SELFPAY ==
[2025-02-26 08:50] VITALS: BP 119/61; PULSE 80; RESP 16; TEMP 36.7; O2SAT 98
[2025-02-26 08:51] VITALS: BP 119/61; PULSE 81; RESP 16; O2SAT 97; BMI 18.8
--- NOTE | 2025-02-26 08:51 | ED_ITS ---
HPI - Abdominal Pain 2 General: Chief Complaint: Abdominal Pain Stated Complaint: abd pain Time Seen by Provider: 02/26/25 08:44 History of Present Illness: 24-year-old female presents to the [facility] ency room with complaints of suprapubic abdominal pain that began yesterday. It was accompanied by bleeding after a bowel movement although she cannot be sure if it was rectal or vaginal bleeding that she had. Associated Symptoms: Reports nausea and vomiting; Denies chills, dysuria and fever(s) Related Data Home Medications ?Medication ?Instructions ?Recorded ?Confirmed acetaminophen 325 mg tablet 325 mg PO QID PRN Fever Or Pain 02/26/25 02/26/25 (Tylenol) norethindrone (contraceptive) 0.35 0.35 mg PO DAILY 02/26/25 mg tablet (Incassia) Previous Rx's ?Medication ?Instructions ?Recorded promethazine 25 mg tablet 25 mg PO Q6H PRN nausea and 02/26/25 vomiting #20 tabs Allergies Allergy/AdvReac Type Severity Reaction Status Date / Time caramel Allergy ALGY-Rash Verified 08/28/24 20:35 [place] AdvReac ADR-Vomitin Uncoded 08/28/24 20:35 g Review of Systems 2 Const: Denies: fever(s) or chills Card: Denies: chest pain Resp: Denies: dyspnea GI: Reports: abdominal pain, nausea and vomiting : Denies: dysuria, urinary frequency or urinary urgency Musc: Denies: neck pain or back pain Skin/Breast: Denies: rash PFSH ED 2 PFSH: Surgical History S/P exploratory laparotomy Jejunal resection, Meckel's diverticulectomy and drainage of intra-abdominal abscess-[facility] 2016 Social History Smoking and tobacco/nicotine status: never used tobacco/nicotine Physical Exam 2 Const: GENERAL APPEARANCE: cooperative ORIENTATION/CONSCIOUSNESS: Yes awake, Yes oriented to person, Yes oriented to place and Yes oriented to time HENMT: COMMON NORMALS: normocephalic, atraumatic and hearing grossly normal bilaterally HEAD & SCALP: normocephalic and atraumatic Resp: COMMON NORMALS: normal respiratory effort, No retractions, No use of accessory muscles and clear to auscultation bilaterally AUSCULTATION: clear to auscultation bilaterally Cardio: COMMON NORMALS: regular rate, regular rhythm and No murmurs present (Cardio) RATE: regular rate RHYTHM: regular rhythm GI: COMMON NORMALS: Soft to palpation and No hepatosplenomegaly present A USCULTATION: Yes normoactive bowel sounds PALPATION: Yes Soft to palpation, No Tenderness to palpation present (GI), No Guarding due to palpation present (GI) and Yes No hepatosplenomegaly present Extremity: COMMON NORMALS: normal to inspection, capillary refill normal, no clubbing, cyanosis or edema, no calf tenderness and no pedal edema Neuro: SENSORIUM/ORIENTATION: Yes oriented to person, Yes oriented to place and Yes oriented to time Skin: COMMON NORMALS: no rashes or lesions noted GENERAL SKIN EXAM: no rashes or lesions noted Course 2 Vital Signs: Vital signs: Vital Signs Temperature 98.0 F 02/26/25 08:50 Pulse Rate 76 02/26/25 13:37 Respiratory Rate 16 02/26/25 08:51 Blood Pressure 102/60 02/26/25 13:37 Pulse Oximetry 97 02/26/25 13:37 Oxygen Delivery Me thod Room Air 02/26/25 12:35 MDM - Abdominal Pain Medical Decision Making Pelvic exam was done by midlevel cultures done no active bleeding from the cervix no obvious rectal bleeding. Patient later related that she has intermittently had bleeding for some time now hemoglobin stable discharge patient home and have her follow-up with outpatient general surgery for endoscopy. Medical Records I reviewed the patient's medical records. Lab Data I reviewed the patient's lab results. 02/26/25 09:36 02/26/25 09:36 Labs/Radiology: Radiology Impressions Abdomen/Pelvis CT 02/26/25 10:48 IMPRESSION: 1. Small amount of free fluid in the pelvis, slightly greater than physiologic. 2. Collapsing LEFT ovarian corpus luteal cyst at 2.0 cm. 3. No GI tract obstruction. Postsurgical small bowel anastomosis in the RIGHT lower quadrant. There is no recurrent obstruction. 4. Normal appendix. 5. No renal obstruction Laboratory Results WBC 8.47 10^3/uL (3.29-11.43) 02/26/25 09:36 RBC 4.75 10^6/uL (3.85-5.65) 02/26/25 09:36 Hgb 14.00 g/dL (11.27-16.99) 02/26/25 09:36 Hct 41.6 % (36-47) 02/26/25 09:36 MCV 87.6 fl (85-98) 02/26/25 09:36 MCH 29.5 pg (27-33) 02/26/25 09:36 MCHC 33.7 g/dL (30-55) 02/26/25 09:36 RDW 12.0 % (12.1-15.1) L 02/26/25 09:36 Plt Count 217 10^3/cmm (157-399) 02/26/25 09:36 MPV 10.6 fL (7.4-10.4) H 02/26/25 09:36 Neut % (Auto) 60.4 % 02/26/25 09:36 Lymph % (Auto) 26.1 % 02/26/25 09:36 [place] % (Auto) 10.6 % 02/26/25 09:36 Eos % (Auto) 1.5 % 02/26/25 09:36 Baso % (Auto) 0.8 % 02/26/25 09:36 Neut # (Auto) 5.11 10^3/uL (1.8-7.7) 02/26/25 09:36 Lymph # (Auto) 2.2 10^3/uL (0.8-4.8) 02/26/25 09:36 [place] # (Auto) 0.9 10^3/uL (0.2-0.9) 02/26/25 09:36 Eos # (Auto) 0.1 10^3/uL (0.0-0.8) 02/26/25 09:36 Baso # (Auto) 0.1 10^3/uL (0.0-0.1) 02/26/25 09:36 Nucleated RBC % (auto) 0 % 02/26/25 09:36 Nucleated RBCs # 0.0 /100WBC 02/26/25 09:36 Sodium 137 mmol/L (136-145) 02/26/25 09:36 Potassium 4.4 mmol/L (3.5-5.1) 02/26/25 09:36 Chloride 104 mmol/L (98-107) 02/26/25 09:36 Carbon Dioxide 21 mmol/L (22-29) L 02/26/25 09:36 Anion Gap 16.4 (5-19) 02/26/25 09:36 BUN 12 mg/dL (6-20) 02/26/25 09:36 Creatinine 0.7 mg/dL (0.5-0.9) 02/26/25 09:36 GFR Calculation 102.8 mL/min (90-130) 02/26/25 09:36 Glucose 84 mg/dL (65-115) 02/26/25 09:36 Calculated Osmolality 283 mOsm/kg (285-295) L 02/26/25 09:36 Calcium 8.7 mg/dL (8.5-10.5) 02/26/25 09:36 Total Bilirubin 0.4 mg/dL (0.15-1.2) 02/26/25 09:36 AST 18 U/L (0-32) 02/26/25 09:36 ALT 14 U/L (0-33) 02/26/25 09:36 Alkaline Phosphatase 39 U/L (35-105) 02/26/25 09:36 Total Protein 6.8 g/dL (6.6-8.7) 02/26/25 09:36 Albumin 3.8 g/dL (3.5-5.2) 02/26/25 09:36 Globulin 3.0 g/dL (1.3-4.6) 02/26/25 09:36 Lipase 31 U/L (13-60) 02/26/25 09:36 HCG, Qual Negative (Negative) 02/26/25 09:36 Urine Color Yellow (Yellow) 02/26/25 11:26 Urine Appearance Clear (CLEAR) 02/26/25 11:26 Urine pH 7.0 (5-7) 02/26/25 11:26 Ur Specific [place] 1.053 (1.005-1.030) H 02/26/25 11:26 Urine Protein Negative (Negative) 02/26/25 11:26 Urine Glucose (UA) Negative (Normal) 02/26/25 11:26 Urine Ketones Negative (Negative) 02/26/25 11:26 Urine Blood Negative (Negative) 02/26/25 11:26 Urine Nitrate Negative (Negative) 02/26/25 11:26 Urine Bilirubin Negative (Negative) 02/26/25 11:26 Urine Urobilinogen 0.2 mg/dL (Negative) 02/26/25 11:26 Ur Leukocyte Esterase Negative (Negative) 02/26/25 11:26 Urine RBC 0-2 /hpf (0-2) 02/26/25 11:26 Urine WBC 0-5 /hpf (0-5) 02/26/25 11:26 Ur Squamous Epith Cells 0-5 /hpf (0-5) 02/26/25 11:26 Amorphous Sediment Not Reportable 02/26/25 11:26 Urine Bacteria None seen /hpf (NONE) 02/26/25 11:26 Hyaline Casts 0.40 /lpf 02/26/25 11:26 All radiology interpretation(s) finalized by discharge Discharge Plan Discharge Patient Disposition: Home Clinical Impression: Abdominal pain, Bright red rectal bleeding Condition: Stable Prescriptions: New promethazine 25 mg tablet 25 mg PO Q6H PRN (Reason: nausea and vomiting) Qty: 20 0RF No Action norethindrone (contraceptive) [Incassia] 0.35 mg tablet 0.35 mg PO DAILY acetaminophen [Tylenol] 325 mg Tablet 325 mg PO QID PRN (Reason: Fever Or Pain) Discharge Orders: Discharge ED (Routine); Ordered 02/26/25 Ordered By: Frantz Saavedra Referrals: [facility], [Primary Care Provider] Discharge Diet: Clear Liquid Discharge Activity: Increase activity as tolerated Patient Instructions: Abdominal Pain (ED), Opioid Safety, Pain Management Activity Restrictions/Additional Instructions: Thank you for choosing [facility] for your healthcare needs today. It is very important that you follow up as instructed or that you return to the Emergency Department should you have concerns or if your condition changes or worsens in any way. You were seen in the emergency room with complaints of abdominal pain. CT did not show any acute findings. Your hemoglobin is normal pelvic exam cultures were done. Will recommend that you follow-up with general surgery to evaluate rectal bleeding further. Stand Alone Forms: Work/School Release Print Language: Qatari Coding Level of Care Code ED Assistant Business Manager for Logan Paniagua
[2025-02-26 09:45] LABS: Basophils # 0.1 10^3/uL (0.0-0.1); Basophils % 0.8 %; Eosinophils # 0.1 10^3/uL (0.0-0.8); Eosinophils % 1.5 %; Hematocrit 41.6 % (36-47); Lymphocytes # 2.2 10^3/uL (0.8-4.8); Lymphocytes % 26.1 %; Mean Corpuscular HGB Conc 33.7 g/dL (30-55); Mean Corpuscular Hemoglobin 29.5 pg (27-33); Mean Corpuscular Volume 87.6 fl (85-98); Mean Platelet Volume 10.6 fL (7.4-10.4); Monocytes # 0.9 10^3/uL (0.2-0.9); Monocytes % 10.6 %; Neutrophils # 5.11 10^3/uL (1.8-7.7); Neutrophils % 60.4 %; Nucleated Red Blood Cells % 0 %; Platelet Count 217 10^3/cmm (157-399); Red Blood Count 4.75 10^6/uL (3.85-5.65); White Blood Count 8.47 10^3/uL (3.29-11.43)
[2025-02-26 10:02] LABS: Alanine Aminotransferase 14 U/L (0-33); Albumin Level 3.8 g/dL (3.5-5.2); Alkaline Phosphatase 39 U/L (35-105); Anion Gap 16.4 (5-19); Aspartate Amino Transferase 18 U/L (0-32); Blood Urea Nitrogen 12 mg/dL (6-20); Calcium 8.7 mg/dL (8.5-10.5); Carbon Dioxide 21 mmol/L (22-29); Chloride 104 mmol/L (98-107); Creatinine Clr Calc Pharmacy 103.2522; Glomerular Filtration Rate 102.8 mL/min (90-130); Glucose 84 mg/dL (65-115); Lipase 31 U/L (13-60); Osmolality Calculated 283 mOsm/kg (285-295); Potassium 4.4 mmol/L (3.5-5.1); Sodium 137 mmol/L (136-145); Total Bilirubin 0.4 mg/dL (0.15-1.2); Total Protein 6.8 g/dL (6.6-8.7)
[2025-02-26 10:17] LABS: HCG, Serum Qual Negative (Negative)
--- NOTE | 2025-02-26 10:48 | CT_ITS ---
WS: [id number] CT ABDOMEN AND PELVIS WITH CONTRAST HISTORY: abd pain/rectal bleeding TECHNIQUE: Imaging performed of the abdomen and pelvis with IV contrast. Single phase imaging of the abdomen. Coronal and sagittal reformats are submitted. All CT scans at [facility] use at least one of these dose optimization techniques: automated exposure control; mA and/or kV adjustment per patient size (includes targeted exams where dose is matched to clinical indication); or iterative reconstruction. IV CONTRAST: Omnipaque 350; 100 mL IV. Oral contrast: No DLP: 348.84 mGy.cm COMPARISON: 11/27/2020 Lower thorax: Lung bases are clear. Heart is normal size. No hiatal hernia. Pectus excavatum deformity. Liver/biliary system: Normal size with no intrahepatic dilatation. Gallbladder: Normal. No gallstones or wall thickening. No pericholecystic fluid. Pancreas: Normal size pancreas and pancreatic duct. No adjacent inflammation. Spleen: Normal size spleen. No mass or infarct. Adrenal glands: Normal. Right kidney: Normal. Left kidney: Normal. Aorta: Normal. Lymphadenopathy: None. Free fluid: Small amount of free fluid in the pelvis. GI tract: Nondistended stomach. No small bowel obstruction. Postsurgical anastomosis noted in the RIGHT lower quadrant. No obstruction is evident. The appendix is normal. Abdominal wall: Unremarkable abdominal wall. No hernia. Pelvis: Uterus is midline. Both ovaries are identified and contain follicles. Collapsing peripherally enhancing LEFT corpus luteum measuring 2.0 cm. Free fluid in the pelvis slightly more than physiologic. 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 CT/CT abdomen pelvis w con* [id number] IMPRESSION: 1. Small amount of free fluid in the pelvis, slightly greater than physiologic . 2. Collapsing LEFT ovarian corpus luteal cyst at 2.0 cm. 3. No GI tract obstruction. Postsurgical small bowel anastomosis in the RIGHT lower quadrant. There is no recurrent obstruction. 4. Normal appendix. 5. No renal obstruction
[2025-02-26] MEDS: iohexol 350 mg/mL 500 mL Btl (per mL) IV (11:14)
[2025-02-26 11:41] LABS: Bilirubin Urine Negative (Negative); Blood Urine Negative (Negative); Glucose Urine UA Negative (Normal); Ketones Urine Negative (Negative); Leukocyte Esterase Urine Negative (Negative); Nitrate Urine Negative (Negative); Protein Urine Negative (Negative); Urine Appearance Clear (CLEAR); Urine Color Yellow (Yellow); Urobilinogen Urine 0.2 mg/dL (Negative)
[2025-02-26 11:43] LABS: Add Urine Microscopic? YES; Bacteria Urine None Seen /hpf; RBC Urine 0-2 /hpf (0-2); Squamous Epithelial Cell Urine 0-5 /hpf (0-5); WBC Urine 0-5 /hpf (0-5)
[2025-02-26 11:50] LABS: Add Urine Culture? No; Specific Gravity, Urine 1.053 (1.005-1.030)
[2025-02-26 12:35] VITALS: BP 100/56; PULSE 54; O2SAT 97
[2025-02-26 13:37] VITALS: BP 102/60; PULSE 76; O2SAT 97
--- NOTE | 2025-03-01 10:24 | DCPLANNER ---
messaged gen surg for er f/u
== END 2025-02-26 13:38 | disposition home or self-care (01) ==
PROVIDERS: Emergency Provider Family Medicine
DX: R10.30 Lower abdominal pain, unspecified (principal); K62.5 Hemorrhage of anus and rectum
CPT/HCPCS: 74177; 80053; 81001; 83690; 84703; 85025; 87210; 99285

== ENCOUNTER 2025-04-24 07:55 | Day surgery (SDC) | payer OTHER, SELFPAY ==
[2025-04-24 08:10] VITALS: BP 105/60; PULSE 82; RESP 16; TEMP 36.2; O2SAT 96
--- NOTE | 2025-04-24 08:32 | ANES.PREANE2 ---
Pre-Anesthetic Assessment Height/Weight: Height 1.63 m Weight 49.895 kg Temp Pulse Resp BP Pulse Ox O2 Del Method 97.1 F L 82 16 105/60 96 Room Air 04/24/25 08:10 04/24/25 08:10 04/24/25 08:10 04/24/25 08:10 04/24/25 08:10 04/24/25 08:10 Operation Date: 04/24/25 09:00 Proposed Procedures p Colonoscopy 45015 G0105, K92.1(Not Applicable) - Adam Alvarez MD Familial anesthetic complications: Never had anesthesia, no family complications Was Beta Modesta taken within 24 hours: N/A Was Clonidine taken within 24 hours: N/A Last intake: Intake Last Liquid Date 04/23/25 Last Liquid Time 20:00 Last Solid Date 04/22/25 Last Solid Time 20:00 Social No alcohol and No tobacco (Vapes) Exam alert, oriented x 3, clear to auscultation bilaterally and regular rate & rhythm Airway Submandibular: within normal limits Cervical ROM: within normal limits Mallampati: Class II Dentition: full Comments: Comments: Nose ring that patient is unable to remove Cochlear implant History/ROS No significant history except as noted and No significant complaints Pulmonary None reported CV/HEM None reported None reported Hepatic None reported GI Gastroesophageal Reflux Disease (None this morning) Metabolic None reported Musc/skel None reported Neuropsych None reported Anesthetic Plan ASA status: 1 Anesthesia: General and MAC Risk of > 500 ml blood loss (7ml/kg in children): No Medications/Allergies Home Medications ?Medication ?Instructions ?Recorded ?Confirmed ?Last Taken ?Type acetaminophen 325 mg tablet 325 mg PO QID PRN Fever Or Pain 02/26/25 04/20/25 02/25/25 History (Tylenol) norethindrone (contraceptive) 0.35 0.35 mg PO DAILY 02/26/25 04/20/25 04/20/25 History mg tablet (Incassia) promethazine 25 mg tablet 25 mg PO Q6H PRN nausea and 02/26/25 04/20/25 Unknown Rx vomiting #20 tabs Allergies Allergy/AdvReac Type Severity Reaction Status Date / Time caramel Allergy ALGY-Rash Verified 04/20/25 09:22 [place] AdvReac ADR-Vomitin Uncoded 04/20/25 09:22 g Current Medications Generic Name Dose Route Start Last Admin Trade Name Freq PRN Reason Stop Dose Admin Sodium Chloride 1,000 mls @ 15 mls/hr 04/24/25 08:00 04/24/25 08:27 Sodium Chloride 0.9% IV 04/25/25 07:59 15 mls/hr .Q24H PRN Administration COLONOSCOPY FLUIDS PFSH Anesthesia Surgical History S/P exploratory laparotomy Jejunal resection, Meckel's diverticulectomy and drainage of intra-abdominal abscess-[facility] 2016 Social History Smoking and tobacco/nicotine status: never used tobacco/nicotine
[2025-04-24 08:36] LABS: OR HCG Qualitative Urine Negative (Negative)
--- NOTE | 2025-04-24 08:53 | W.PM.OPSFHP ---
Same Day Surgery H&P Indication for Procedure/HPI DATE OF PROCEDURE: April 24, 2025 CHIEF COMPLAINT/INDICATIONFOR SURGICAL PROCEDURE: hematochezia PREOP DIAGNOSIS: hematochezia PLANNED PROCEDURE: Operation Date: 04/24/25 09:00 Proposed Procedures p Colonoscopy 34234 G0105, K92.1(Not Applicable) - Adam Alvarez MD Medications/Allergies* Home Medications ?Medication ?Instructions ?Recorded ?Confirmed ?Type acetaminophen 325 mg tablet 325 mg PO QID PRN Fever Or Pain 02/26/25 04/20/25 History (Tylenol) norethindrone (contraceptive) 0.35 0.35 mg PO DAILY 02/26/25 04/20/25 History mg tablet (Incassia) Allergies/Adverse Reactions Allergy/AdvReac Type Severity Reaction Status Date / Time caramel Allergy ALGY-Rash Verified 04/20/25 09:22 [place] AdvReac ADR-Vomitin Uncoded 04/20/25 09:22 g Current Medications: Generic Name Dose Route Start Last Admin Trade Name Freq PRN Reason Stop Dose Admin Sodium Chloride 1,000 mls @ 15 mls/hr 04/24/25 08:00 04/24/25 08:27 Sodium Chloride 0.9% IV 04/25/25 07:59 15 mls/hr .Q24H PRN Administration COLONOSCOPY FLUIDS Pertinent History/Comorbid Conditions* Surgical History (Updated 11/27/20 @ 19:57 by Darion Vega MD) S/P exploratory laparotomy Jejunal resection, Meckel's diverticulectomy and drainage of intra-abdominal abscess-[facility] 2016 Social History Smoking and tobacco/nicotine status: never used tobacco/nicotine Pertinent Exam Findings alert, oriented x 3, clear to auscultation bilaterally, regular rate & rhythm and procedure specific exam findings abdomen soft, nt, nd Recommendations Risks and benefits of procedure reviewed and Patient/family agree to proceed Surgery/Procedure today Coding Level of Care Code Acute Code for Chg Fwd
--- NOTE | 2025-04-24 09:03 | PC.NURSE ---
cecum time 0902
[2025-04-24 09:10] VITALS: BP 90/51; PULSE 73; RESP 14; TEMP 36.4; O2SAT 99
[2025-04-24 09:36] VITALS: BP 100/56; PULSE 70; RESP 16; O2SAT 99
--- NOTE | 2025-04-24 09:50 | ANE.PACU2 ---
Inpatient post-anesthesia follow up: Airway intact: Yes Vital signs: Temperature 97.5 F Pulse Rate 70 Respiratory Rate 16 Blood Pressure 100/56 Pulse Oximetry 99 Oxygen Delivery Me thod Room Air Oxygen Flow Rate Fraction of Inspir ed Oxygen Hydration adequate: Yes Nausea and vomiting: No Pain level: 1 Mental status: Baseline
== END 2025-04-24 09:53 | disposition home or self-care (01) ==
PROVIDERS: Anesthesiology; PCP Family Medicine; Visit Provider Student in an Organized Health Care Education/Training Program
PROC: 0DJD8ZZ Inspection of Lower Intestinal Tract, Via Natural or Artificial Opening Endoscopic (ICD-10-PCS; CPT 45378; principal; 2025-04-24 09:00)
DX: K92.1 Melena (principal); K21.9 Gastro-esophageal reflux disease without esophagitis
CPT/HCPCS: 45378; 81025; J2704; J7030

== ENCOUNTER 2025-05-05 08:34 | Emergency (ER) | payer OTHER, SELFPAY ==
--- OUTSIDE RECORDS SUMMARY | 2025-05-05 08:37 | XMS_ITS | Encounter Summary ---
Author Organization [facility] Address [address] [place] [address] Care Team Providers Care Allergy Specialist Name Role Phone DEMETRIUS Mcguire Sr., Michael Dave Primary Care Pro vider Encounter Details Date Type Department Care Team (Latest Contact Info) Description 07/24/2002 Outpatient Historical 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
--- OUTSIDE RECORDS SUMMARY | 2025-05-05 08:37 | XMS_ITS | Encounter Summary ---
Author Organization [facility] Address [address] [place] [address] Care Team Providers Care Supervisor Cell Maintenance Name Role Phone DEMETRIUS Mcguire Sr., Michael Dave Primary Care Pro vider Encounter Details Date Type Department Care Team (Latest Contact Info) Description 07/24/2002 Outpatient Historical [facility] Ear, Nose and Throat [address] [place] [address] [place] [address] Edgar Kyle MD [address] [place] [address] SENSORNEUR LOSS COMB TYP (Primary Dx); SENSORNEUR HEAR LOSS NOS Social History Tobacco Use Types Packs/Day Years Used Date Smoking Tobacco: Never Assessed Comments Unknown Sex and Gender Information Value Date Recorded Sex Assigned at Not on file Legal Sex Female 5:11 AM EVENT SECURITY OFFICER Gender Identity Not on file Sexual Orientation Not on file documented as of this encounter Plan of Treatment Not on file documented as of this encounter Visit Diagnoses Diagnosis Sensorineural hearing loss, bilateral- Primary Sensorineural hearing loss, unspecified documented in this encounter Care Teams Supervisor Cell Maintenance Relationship Specialty Start Date End Date Husam Mcguire Sr., FNP [address] [place] [address] PCP - General 12/14/08 documented as of this encounter
--- OUTSIDE RECORDS SUMMARY | 2025-05-05 08:37 | XMS_ITS | Encounter Summary ---
Author Organization [facility] Address [address] [place] [address] Care Team Providers Care Statistical Programmer Analyst Name Role Phone DEMETRIUS Mcguire Sr., Michael Dave Primary Care Pro vider Encounter Details Date Type Department Care Team (Latest Contact Info) Description 06/19/2002 Outpatient Historical [facility] Ear, Nose and Throat [address] [place] [address] [place] [address] Edgar Kyle MD [address] [address] SENSORNEUR HEAR LOSS NOS (Primary Dx) Social History Tobacco Use Types Packs/Day Years Used Date Smoking Tobacco: Never Assessed Comments Unknown Sex and Gender Information Value Date Recorded Sex Assigned at Not on file Legal Sex Female 5:11 AM HOME APPLIANCES MECHANIC Gender Identity Not on file Sexual Orientation Not on file documented as of this encounter Plan of Treatment Not on file documented as of this encounter Visit Diagnoses Diagnosis Sensorineural hearing loss, unspecified- Primary documented in this encounter Care Teams Statistical Programmer Analyst Relationship Specialty Start Date End Date Husam Mcguire Sr., FNP [address] [place], [place] [address] PCP - General 12/14/08 documented as of this encounter
--- OUTSIDE RECORDS SUMMARY | 2025-05-05 08:37 | XMS_ITS | Encounter Summary ---
Author Organization [facility] Address [address] [place] [address] Care Team Providers Care Golf Club Maker Name Role Phone DEMETRIUS Mcguire Sr., Michael Dave Primary Care Pro vider Encounter Details Date Type Department Care Team (Latest Contact Info) Description 06/19/2002 Outpatient Historical [facility] Ear, Nose and Throat [address] [place] 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
--- OUTSIDE RECORDS SUMMARY | 2025-05-05 08:38 | XMS_ITS | Encounter Summary ---
Author Organization [facility] Address [address] [place] [address] Care Team Providers Care Account Review Specialist Name Role Phone DEMETRIUS Mcguire Sr., Michael Dave Primary Care Pro vider Encounter Details Date Type Department Care Team (Latest Contact Info) Description 10/24/2002 Outpatient Historical [facility] Ear, Nose and Throat [address] [place] [address] [place] [address] Edgar Kyle MD [address] [address] SENSORNEUR HEAR LOSS NOS (Primary Dx) Social History Tobacco Use Types Packs/Day Years Used Date Smoking Tobacco: Never Assessed Comments Unknown Sex and Gender Information Value Date Recorded Sex Assigned at Not on file Legal Sex Female 5:11 AM BREWERY REPRESENTATIVE Gender Identity Not on file Sexual Orientation Not on file documented as of this encounter Plan of Treatment Not on file documented as of this encounter Visit Diagnoses Diagnosis Sensorineural hearing loss, unspecified- Primary documented in this encounter Care Teams Account Review Specialist Relationship Specialty Start Date End Date Husam Mcguire Sr., FNP [address] [place], [place] [address] PCP - General 12/14/08 documented as of this encounter
--- OUTSIDE RECORDS SUMMARY | 2025-05-05 08:38 | XMS_ITS | Encounter Summary ---
Author Organization [facility] Address [address] [place] [address] Care Team Providers Care Transit Planner Name Role Phone DEMETRIUS Mcguire Sr., Michael Dave Primary Care Pro vider Encounter Details Date Type Department Care Team (Late st Contact Info) Description 03/20/2003 Outpatient Historical [facility] Ear, Nose and Throat [address] [place] 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
--- OUTSIDE RECORDS SUMMARY | 2025-05-05 08:38 | XMS_ITS | Encounter Summary ---
Author Organization [facility] Address [address] [place] [address] Care Team Providers Care Tip Finisher Name Role Phone DEMETRIUS Mcguire Sr., Michael Dave Primary Care Pro vider Encounter Details Date Type Department Care Team (Latest Contact Info) Description 03/06/2003 Outpatient Historical [facility] Ear, Nose and Throat [address] [place] 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
--- OUTSIDE RECORDS SUMMARY | 2025-05-05 08:38 | XMS_ITS | Encounter Summary ---
Author Organization [facility] Address [address] [place] [address] Care Team Providers Care Manufacturing Analyst Name Role Phone DEMETRIUS Mcguire Sr., Michael Dave Primary Care Pro vider Encounter Details Date Type Department Care Team (Latest Contact Info) Description 04/27/2002 Outpatient Historical [facility] Ear, Nose and Throat [address] [place] [address] [place] [address] [place] [address] Edgar Kyle MD [address] [address] SENSORNEUR HEAR LOSS NOS (Primary Dx); IMPACTED CERUMEN Social History Tobacco Use Types Packs/Day Years Used Date Smoking Tobacco: Never Assessed Comments Unknown Sex and Gender Information Value Date Recorded Sex Assigned at Not on file Legal Sex Female 5:11 AM JAILER/TRAINING OFFICER Gender Identity Not on file Sexual Orientation Not on file documented as of this encounter Plan of Treatment Not on file documented as of this encounter Visit Diagnoses Diagnosis Sensorineural hearing loss, unspecified- Primary Impacted cerumen documented in this encounter Care Teams Manufacturing Analyst Relationship Specialty Start Date End Date Husam Mcguire Sr., FNP [address] [place] [address] PCP - General 12/14/08 documented as of this encounter
--- OUTSIDE RECORDS SUMMARY | 2025-05-05 08:38 | XMS_ITS | Encounter Summary ---
Author Organization [facility] Address [address] [place] [address] Care Team Providers Care Quarter Doper Name Role Phone DEMETRIUS Mcguire Sr., Michael Dave Primary Care Pro vider Encounter Details Date Type Department Care Team (Latest Contact Info) Description 10/17/2002 Outpatient Historical [facility] Ear, Nose and Throat E [place] [address] [place] [place] [address] Edgar Kyle MD [address] [address] SENSORNEUR HEAR LOSS NOS (Primary Dx) Social History Tobacco Use Types Packs/Day Years Used Date Smoking Tobacco: Never Assessed Comments Unknown Sex and Gender Information Value Date Recorded Sex Assigned at Not on file Legal Sex Female 5:11 AM SYSTEM TECHNOLOGIST Gender Identity Not on file Sexual Orientation Not on file documented as of this encounter Plan of Treatment Not on file documented as of this encounter Visit Diagnoses Diagnosis Sensorineural hearing loss, unspecified- Primary documented in this encounter Care Teams Quarter Doper Relationship Specialty Start Date End Date Husam Mcguire Sr., FNP [address] [place], [place] [address] PCP - General 12/14/08 documented as of this encounter
--- OUTSIDE RECORDS SUMMARY | 2025-05-05 08:38 | XMS_ITS | Encounter Summary ---
Author Organization [facility] Address [address] [place] [address] Care Team Providers Care Piece Maker Name Role Phone DEMETRIUS Mcguire Sr., Michael Dave Primary Care Pro vider Encounter Details Date Type Department Care Team (Late st Contact Info) Description 12/15/2001 Outpatient Historical [facility] Ear, Nose and Throat [address] [place] [address] [place] [address] Social History Tobacco Use Types Packs/Day Years Used Date Smoking Tobacco: Never Assessed Comments Unknown Sex and Gender Information Value Date Recorded Sex Assigned at Not on file Legal Sex Female 5:11 AM TORNADO CHASER Gender Identity Not on file Sexual Orientation Not on file documented as of this encounter Plan of Treatment Not on file documented as of this encounter Visit Diagnoses Not on filedocumented in this encounter Care Teams Piece Maker Relationship Specialty Start Date End Date Husam Mcguire Sr., FNP [address] [place] [address] PCP - General 12/14/08 documented as of this encounter
--- OUTSIDE RECORDS SUMMARY | 2025-05-05 08:38 | XMS_ITS | Encounter Summary ---
Author Organization [facility] Address [address] [place] [address] Care Team Providers Care Software Qa Manager Name Role Phone DEMETRIUS Mcguire Sr., Michael Dave Primary Care Pro vider Encounter Details Date Type Department Care Team (Late st Contact Info) Description 06/10/2007 Outpatient Historical [facility] Ear, Nose and Throat [address] [place] [address] [place] [address] Lakeisha Chapman AU.D [address] [place] [id number] Sensory Hearing Loss, Bilateral (Primary Dx) Social History Tobacco Use Types Packs/Day Years Used Date Smoking Tobacco: Never Assessed Comments Unknown Sex and Gender Information Value Date Recorded Sex Assigned at Not on file Legal Sex Female 5:11 AM HARVESTING MANAGER Gender Identity Not on file Sexual Orientation Not on file documented as of this encounter Plan of Treatment Not on file documented as of this encounter Visit Diagnoses Diagnosis Sensory hearing loss, bilateral- Primary documented in this encounter Care Teams Software Qa Manager Relationship Specialty Start Date End Date Husam Mcguire Sr., FNP [address] [place], [place] [address] PCP - General 12/14/08 documented as of this encounter
--- OUTSIDE RECORDS SUMMARY | 2025-05-05 08:38 | XMS_ITS | Encounter Summary ---
Author Organization [facility] Address [address] [place] [address] Care Team Providers Care Linoleum Layer Apprentice Name Role Phone DEMETRIUS Mcguire Sr., Michael Dave Primary Care Pro vider Encounter Details Date Type Department Care Team (Late st Contact Info) Description 08/07/2005 Outpatient Historical [facility] Ear, Nose and Throat [address] [place] [address] [place] [address] Social History Tobacco Use Types Packs/Day Years Used Date Smoking Tobacco: Never Assessed Comments Unknown Sex and Gender Information Value Date Recorded Sex Assigned at Not on file Legal Sex Female 5:11 AM PLODDING MACHINE OPERATOR Gender Identity Not on file Sexual Orientation Not on file documented as of this encounter Plan of Treatment Not on file documented as of this encounter Visit Diagnoses Not on filedocumented in this encounter Care Teams Linoleum Layer Apprentice Relationship Specialty Start Date End Date Husam Mcguire Sr., FNP [address] [place] [address] PCP - General 12/14/08 documented as of this encounter
--- OUTSIDE RECORDS SUMMARY | 2025-05-05 08:38 | XMS_ITS | Encounter Summary ---
Author Organization [facility] Address [address] [place] [address] Care Team Providers Care Label Fuser Tender Name Role Phone DEMETRIUS Mcguire Sr., Michael Dave Primary Care Pro vider Encounter Details Date Type Department Care Team (Latest Contact Info) Description 07/31/2002 Outpatient Historical [facility] Ear, Nose and Throat [address] [place] [address] [place] [address] Edgar Kyle MD [address] [address] SENSORNEUR HEAR LOSS NOS (Primary Dx) Social History Tobacco Use Types Packs/Day Years Used Date Smoking Tobacco: Never Assessed Comments Unknown Sex and Gender Information Value Date Recorded Sex Assigned at Not on file Legal Sex Female 5:11 AM CDC ASSOCIATE Gender Identity Not on file Sexual Orientation Not on file documented as of this encounter Plan of Treatment Not on file documented as of this encounter Visit Diagnoses Diagnosis Sensorineural hearing loss, unspecified- Primary documented in this encounter Care Teams Label Fuser Tender Relationship Specialty Start Date End Date Husam Mcguire Sr., FNP [address] [place], [place] [address] PCP - General 12/14/08 documented as of this encounter
--- OUTSIDE RECORDS SUMMARY | 2025-05-05 08:38 | XMS_ITS | Encounter Summary ---
Author Organization [facility] Address [address] [place] [address] Care Team Providers Care Insurance Follow Up Representative Name Role Phone DEMETRIUS Mcguire Sr., Michael Dave Primary Care Pro vider Encounter Details Date Type Department Care Team (Latest Contact Info) Description 12/22/2001 Outpatient Historical [facility] Ear, Nose and Throat [address] [place] [address] [place] [address] [place] [address] Shiv Joyce [address] [place], [place] [phone] SENSORNEUR HEAR LOSS NOS (Primary Dx) Social History Tobacco Use Types Packs/Day Years Used Date Smoking Tobacco: Never Assessed Comments Unknown Sex and Gender Information Value Date Recorded Sex Assigned at Not on file Legal Sex Female 5:11 AM PUBLIC TRANSPORTATION INSPECTOR Gender Identity Not on file Sexual Orientation Not on file documented as of this encounter Plan of Treatment Not on file documented as of this encounter Visit Diagnoses Diagnosis Sensorineural hearing loss, unspecified- Primary documented in this encounter Care Teams Insurance Follow Up Representative Relationship Specialty Start Date End Date Hsuam Mcguire Sr., FNP [address] [place] [address] PCP - General 12/14/08 documented as of this encounter
--- OUTSIDE RECORDS SUMMARY | 2025-05-05 08:38 | XMS_ITS | Encounter Summary ---
Author Organization [facility] Address [address] [place] [address] Care Team Providers Care Rf Technician Name Role Phone DEMETRIUS Mcguire Sr., Michael Dave Primary Care Pro vider Encounter Details Date Type Department Care Team (Latest Contact Info) Description 09/11/[address] [facility] Ear, Nose and Throat [address] [place] [address] [place] [address] [place] [address] Valentín Roberts MD NO ADDRESS ON FILE SENSORY HEARING LOSS (Primary Dx) Social History Tobacco Use Types Packs/Day Years Used Date Smoking Tobacco: Never Assessed Comments Unknown Sex and Gender Information Value Date Recorded Sex Assigned at Not on file Legal Sex Female 5:11 AM EXTRACTOR PULLER Gender Identity Not on file Sexual Orientation Not on file documented as of this encounter Plan of Treatment Not on file documented as of this encounter Visit Diagnoses Diagnosis Sensory hearing loss, bilateral- Primary documented in this encounter Care Teams Rf Technician Relationship Specialty Start Date End Date Husam Mcguire Sr., FNP [address] [place] [address] PCP - General 12/14/08 documented as of this encounter
--- OUTSIDE RECORDS SUMMARY | 2025-05-05 08:38 | XMS_ITS | Encounter Summary ---
Author Organization [facility] Address [address] [place] [address] Care Team Providers Care Store Group Manager Name Role Phone DEMETRIUS Mcguire Sr., Michael Dave Primary Care Pro vider Encounter Details Date Type Department Care Team (Latest Contact Info) Description 10/25/2006 Outpatient Historical [facility] Ear, Nose and Throat [address] [place] [address] [place] [address] [place] [address] Alejandro Dietz AU.D NO ADDRESS ON FILE Sensory Hearing Loss, Bilateral (Primary Dx) Social History Tobacco Use Types Packs/Day Years Used Date Smoking Tobacco: Never Assessed Comments Unknown Sex and Gender Information Value Date Recorded Sex Assigned at Not on file Legal Sex Female 5:11 AM FINANCIAL COORDINATOR Gender Identity Not on file Sexual Orientation Not on file documented as of this encounter Plan of Treatment Not on file documented as of this encounter Visit Diagnoses Diagnosis Sensory hearing loss, bilateral- Primary documented in this encounter Care Teams Store Group Manager Relationship Specialty Start Date End Date Husam Mcguire Sr., FNP [address] [place] [address] PCP - General 12/14/08 documented as of this encounter
--- OUTSIDE RECORDS SUMMARY | 2025-05-05 08:38 | XMS_ITS | Encounter Summary ---
Author Organization [facility] Address [address] [facility] Attn: [place] [address] Care Team Providers Care Library Director Name Role Phone DEMETRIUS Mcguire Sr., Michael Dave Primary Care Pro vider Encounter Details Date Type Department Care Team (Late st Contact Info) Description 03/02/2002 Outpatient Historical Shiv Joyce [address] [place], [place] [address] Social History Tobacco Use Types Packs/Day Years Used Date Smoking Tobacco: Never Assessed Comments Unknown Sex and Gender Information Value Date Recorded Sex Assigned at Not on file Legal Sex Female 5:11 AM TECHNICAL MAINTENANCE TECHNICIAN Gender Identity Not on file Sexual Orientation Not on file documented as of this encounter Plan of Treatment Not on file documented as of this encounter Visit Diagnoses Not on filedocumented in this encounter Care Teams Library Director Relationship Specialty Start Date End Date Husam Mcguire Sr., FNP [address] [place] [address] PCP - General 12/14/08 documented as of this encounter
--- OUTSIDE RECORDS SUMMARY | 2025-05-05 08:38 | XMS_ITS | Encounter Summary ---
Author Organization [facility] Address [address] [place] [address] Care Team Providers Care Railroad Signal Operator Name Role Phone DEMETRIUS Mcguire Sr., Michael Dave Primary Care Pro vider Encounter Details Date Type Department Care Team (Latest Contact Info) Description 01/04/[address] [facility] Ear, Nose and Throat [address] [place] [address] [place] [place] [address] Shiv Joyce [address] [place] [address] SENSORNEUR HEAR LOSS NOS (Primary Dx); CHR NONSUP OM NOS/NEC Social History Tobacco Use Types Packs/Day Years Used Date Smoking Tobacco: Never Assessed Comments Unknown Sex and Gender Information Value Date Recorded Sex Assigned at Not on file Legal Sex Female 5:11 AM ROCK WORKER Gender Identity Not on file Sexual Orientation Not on file documented as of this encounter Plan of Treatment Not on file documented as of this encounter Visit Diagnoses Diagnosis Sensorineural hearing loss, unspecified- Primary Other and unspecified chronic nonsuppurative otitis media documented in this encounter Care Teams Railroad Signal Operator Relationship Specialty Start Date End Date Husam Mcguire Sr., FNP [address] [place] [address] PCP - General 12/14/08 documented as of this encounter
--- OUTSIDE RECORDS SUMMARY | 2025-05-05 08:38 | XMS_ITS | Encounter Summary ---
Author Organization [facility] Address [address] [place] [address] Care Team Providers Care Carbon Capture Power Plant Engineer Name Role Phone DEMETRIUS Mcguire Sr., Michael Dave Primary Care Pro vider Encounter Details Date Type Department Care Team (Latest Contact Info) Description 08/07/2005 Outpatient Historical [facility] Ear, Nose and Throat E [address] [place] [address] Divina Bocanegra, PhD NO ADDRESS ON FILE SENSORY HEARING LOSS (Primary Dx) Social History Tobacco Use Types Packs/Day Years Used Date Smoking Tobacco: Never Assessed Comments Unknown Sex and Gender Information Value Date Recorded Sex Assigned at Not on file Legal Sex Female 5:11 AM MOTHER'S HELPER Gender Identity Not on file Sexual Orientation Not on file documented as of this encounter Plan of Treatment Not on file documented as of this encounter Visit Diagnoses Diagnosis Sensory hearing loss, bilateral- Primary documented in this encounter Care Teams Carbon Capture Power Plant Engineer Relationship Specialty Start Date End Date Husam Mcguire Sr., FNP [address] [place] [address] PCP - General 12/14/08 documented as of this encounter
--- OUTSIDE RECORDS SUMMARY | 2025-05-05 08:38 | XMS_ITS | Encounter Summary ---
Author Organization [facility] Address [address] [place] [address] Care Team Providers Care Fruit Packer Face And Fill Name Role Phone DEMETRIUS Mcguire Sr., Michael Dave Primary Care Pro vider Encounter Details Date Type Department Care Team (Late st Contact Info) Description 07/10/2003 Outpatient Historical [facility] Ear, Nose and Throat [address] [place] [address] [place] [address] Social History Tobacco Use Types Packs/Day Years Used Date Smoking Tobacco: Never Assessed Comments Unknown Sex and Gender Information Value Date Recorded Sex Assigned at Not on file Legal Sex Female 5:11 AM LIQUID SUGAR MELTER Gender Identity Not on file Sexual Orientation Not on file documented as of this encounter Plan of Treatment Not on file documented as of this encounter Visit Diagnoses Not on filedocumented in this encounter Care Teams Fruit Packer Face And Fill Relationship Specialty Start Date End Date Husma Mcguire Sr., FNP [address] [place] [address] PCP - General 12/14/08 documented as of this encounter
--- OUTSIDE RECORDS SUMMARY | 2025-05-05 08:38 | XMS_ITS | Encounter Summary ---
Author Organization [facility] Address [address] [place] [address] Care Team Providers Care Voltage Regulator Assembler Name Role Phone DEMETRIUS Mcguire Sr., Michael Dave Primary Care Pro vider Encounter Details Date Type Department Care Team (Latest Contact Info) Description 12/22/2001 Outpatient Historical [facility] Head and Neck Surgery-E [address] [place] [address] Shiv Joyce [address], [place] [id number] CHR NONSUP OM NOS/NEC (Primary Dx) Social History Tobacco Use Types Packs/Day Years Used Date Smoking Tobacco: Never Assessed Comments Unknown Sex and Gender Information Value Date Recorded Sex Assigned at Not on file Legal Sex Female 5:11 AM TECHNICAL OPERATIONS SPECIALIST Gender Identity Not on file Sexual Orientation Not on file documented as of this encounter Plan of Treatment Not on file documented as of this encounter Visit Diagnoses Diagnosis Other and unspecified chronic nonsuppurative otitis media- Primary documented in this encounter Care Teams Voltage Regulator Assembler Relationship Specialty Start Date End Date Husam Mcguire Sr., FNP [address] [place] [address] PCP - General 12/14/08 documented as of this encounter
--- OUTSIDE RECORDS SUMMARY | 2025-05-05 08:38 | XMS_ITS | Encounter Summary ---
Author Organization [facility] Address [address] [place] [address] Care Team Providers Care Invoice Coder Name Role Phone DEMETRIUS Mcguire Sr., Michael Dave Primary Care Pro vider Encounter Details Date Type Department Care Team (Late st Contact Info) Description 04/03/2002 Outpatient Historical [facility] Ear, Nose and Throat [address] [place] [address] Social History Tobacco Use Types Packs/Day Years Used Date Smoking Tobacco: Never Assessed Comments Unknown Sex and Gender Information Value Date Recorded Sex Assigned at Not on file Legal Sex Female 5:11 AM CHUTE FEEDER Gender Identity Not on file Sexual Orientation Not on file documented as of this encounter Plan of Treatment Not on file documented as of this encounter Visit Diagnoses Not on filedocumented in this encounter Care Teams Invoice Coder Relationship Specialty Start Date End Date Husam Mcguire Sr., FNP [address] [place] [address] PCP - General 12/14/08 documented as of this encounter
--- OUTSIDE RECORDS SUMMARY | 2025-05-05 08:38 | XMS_ITS | Encounter Summary ---
Author Organization [facility] Address [address] [place] [address] Care Team Providers Care Career Consultant Name Role Phone DEMETRIUS Mcguire Sr., Michael Dave Primary Care Pro vider Encounter Details Date Type Department Care Team (Latest Contact Info) Description 04/03/2002 Outpatient Historical [facility] Ear, Nose and Throat [address] [place] [address] [place] [address] Edgar Kyle MD [address] [address] SENSORNEUR HEAR LOSS NOS (Primary Dx) Social History Tobacco Use Types Packs/Day Years Used Date Smoking Tobacco: Never Assessed Comments Unknown Sex and Gender Information Value Date Recorded Sex Assigned at Not on file Legal Sex Female 5:11 AM OUTSOLE LEVELER Gender Identity Not on file Sexual Orientation Not on file documented as of this encounter Plan of Treatment Not on file documented as of this encounter Visit Diagnoses Diagnosis Sensorineural hearing loss, unspecified- Primary documented in this encounter Care Teams Career Consultant Relationship Specialty Start Date End Date Husam Mcguire Sr., FNP [address] [place], [place] [address] PCP - General 12/14/08 documented as of this encounter
--- OUTSIDE RECORDS SUMMARY | 2025-05-05 08:38 | XMS_ITS | Encounter Summary ---
Author Organization [facility] Address [address] [place] [address] Care Team Providers Care Ocular Care Technologist Name Role Phone DEMETRIUS Mcguire Sr., Michael Dave Primary Care Pro vider Encounter Details Date Type Department Care Team (Latest Contact Info) Description 09/25/2005 Outpatient Historical [facility] Ear, Nose and Throat [address] [place] [address] [place] [address] Divina Bocanegra, PhD NO ADDRESS ON FILE SENSORY HEARING LOSS (Primary Dx) Social History Tobacco Use Types Packs/Day Years Used Date Smoking Tobacco: Never Assessed Comments Unknown Sex and Gender Information Value Date Recorded Sex Assigned at Not on file Legal Sex Female 5:11 AM CHARGE COORDINATOR Gender Identity Not on file Sexual Orientation Not on file documented as of this encounter Plan of Treatment Not on file documented as of this encounter Visit Diagnoses Diagnosis Sensory hearing loss, bilateral- Primary documented in this encounter Care Teams Ocular Care Technologist Relationship Specialty Start Date End Date Husam Mcguire Sr., FNP [address] [place] [address] PCP - General 12/14/08 documented as of this encounter
--- OUTSIDE RECORDS SUMMARY | 2025-05-05 08:38 | XMS_ITS | Encounter Summary ---
Author Organization [facility] Address [address] [place] [address] Care Team Providers Care Microfilming Document Preparer Name Role Phone DEMETRIUS Mcguire Sr., Michael Dave Primary Care Pro vider Encounter Details Date Type Department Care Team (Latest Contact Info) Description 12/22/2001 Outpatient Historical [facility] Ear, Nose and Throat [address] [place] [address] [place] [address] Shiv Joyce [address], [place] [id number] CHR NONSUP OM NOS/NEC (Primary Dx) Social History Tobacco Use Types Packs/Day Years Used Date Smoking Tobacco: Never Assessed Comments Unknown Sex and Gender Information Value Date Recorded Sex Assigned at Not on file Legal Sex Female 5:11 AM TRACK EQUIPMENT OPERATOR Gender Identity Not on file Sexual Orientation Not on file documented as of this encounter Plan of Treatment Not on file documented as of this encounter Visit Diagnoses Diagnosis Other and unspecified chronic nonsuppurative otitis media- Primary documented in this encounter Care Teams Microfilming Document Preparer Relationship Specialty Start Date End Date Husam Mcguire Sr., FNP [address] [place] [address] PCP - General 12/14/08 documented as of this encounter
--- OUTSIDE RECORDS SUMMARY | 2025-05-05 08:38 | XMS_ITS | Encounter Summary ---
Author Organization [facility] Address [address] [place] [address] Care Team Providers Care Nib Finisher Name Role Phone DEMETRIUS Mcguire Sr., Michael Dave Primary Care Pro vider Encounter Details Date Type Department Care Team (Latest Contact Info) Description 12/15/2001 Outpatient Historical [facility] Ear, Nose and Throat [address] [place] [address] [place] [address] Shiv Joyce [address] [place] [address] Mixed hearing loss (Primary Dx); CHR NONSUP OM NOS/NEC Social History Tobacco Use Types Packs/Day Years Used Date Smoking Tobacco: Never Assessed Comments Unknown Sex and Gender Information Value Date Recorded Sex Assigned at Not on file Legal Sex Female 5:11 AM MASTER PLUMBER Gender Identity Not on file Sexual Orientation Not on file documented as of this encounter Plan of Treatment Not on file documented as of this encounter Visit Diagnoses Diagnosis Mixed hearing loss- Primary Mixed hearing loss, unspecified Other and unspecified chronic nonsuppurative otitis media documented in this encounter Care Teams Nib Finisher Relationship Specialty Start Date End Date Husam Mcguire Sr., FNP [address] [place], [place] [address] PCP - General 12/14/08 documented as of this encounter
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
--- OUTSIDE RECORDS SUMMARY | 2025-05-05 08:38 | XMS_ITS | Encounter Summary ---
Author Organization [facility] Address [address] [place] [address] Care Team Providers Care Face Worker Name Role Phone DEMETRIUS Mcguire Sr., Michael Dave Primary Care Pro vider Encounter Details Date Type Department Care Team (Late st Contact Info) Description 04/27/2002 Outpatient Historical [facility] Social History Tobacco Use Types Packs/Day Years Used Date Smoking Tobacco: Never Assessed Comments Unknown Sex and Gender Information Value Date Recorded Sex Assigned at Not on file Legal Sex Female 5:11 AM SUPERVISOR GREEN END DEPARTMENT Gender Identity Not on file Sexual Orientation Not on file documented as of this encounter Plan of Treatment Not on file documented as of this encounter Visit Diagnoses Not on filedocumented in this encounter Care Teams Face Worker Relationship Specialty Start Date End Date Husam Mcguire Sr., FNP [address] [place] [address] PCP - General 12/14/08 documented as of this encounter
--- OUTSIDE RECORDS SUMMARY | 2025-05-05 08:38 | XMS_ITS | Encounter Summary ---
Author Organization [facility] Address [address] [place] [address] Care Team Providers Care Road Test Examiner Name Role Phone DEMETRIUS Mcguire Sr., Michael Dave Primary Care Pro vider Encounter Details Date Type Department Care Team (Latest Contact Info) Description 10/25/2006 Outpatient Historical [facility] Ear[facility] Nose and Throat E [place] [address] [place] [address] Alejandro Dietz AU.D NO ADDRESS ON FILE Sensory Hearing Loss, Bilateral (Primary Dx) Social History Tobacco Use Types Packs/Day Years Used Date Smoking Tobacco: Never Assessed Comments Unknown Sex and Gender Information Value Date Recorded Sex Assigned at Not on file Legal Sex Female 5:11 AM SUPERVISOR FURNACE PROCESS Gender Identity Not on file Sexual Orientation Not on file documented as of this encounter Plan of Treatment Not on file documented as of this encounter Visit Diagnoses Diagnosis Sensory hearing loss, bilateral- Primary documented in this encounter Care Teams Road Test Examiner Relationship Specialty Start Date End Date Husam Mcguire Sr., FNP [address] [place] [address] PCP - General 12/14/08 documented as of this encounter
--- OUTSIDE RECORDS SUMMARY | 2025-05-05 08:38 | XMS_ITS | Encounter Summary ---
Author Organization [facility] Address [address] [place] [address] Care Team Providers Care Food Science Technician Name Role Phone DEMETRIUS Mcguire Sr., Michael Dave Primary Care Pro vider Encounter Details Date Type Department Care Team (Latest Contact Info) Description 05/14/2005 Outpatient Historical [facility] Ear, Nose and Throat [address] [place] [address] [place] [address] Divina Bocanegra, PhD NO ADDRESS ON FILE SENSORY HEARING LOSS (Primary Dx) Social History Tobacco Use Types Packs/Day Years Used Date Smoking Tobacco: Never Assessed Comments Unknown Sex and Gender Information Value Date Recorded Sex Assigned at Not on file Legal Sex Female 5:11 AM SALESFORCE SPECIALIST Gender Identity Not on file Sexual Orientation Not on file documented as of this encounter Plan of Treatment Not on file documented as of this encounter Visit Diagnoses Diagnosis Sensory hearing loss, bilateral- Primary documented in this encounter Care Teams Food Science Technician Relationship Specialty Start Date End Date Husam Mcguire Sr., FNP [address] [place] [address] PCP - General 12/14/08 documented as of this encounter
--- OUTSIDE RECORDS SUMMARY | 2025-05-05 08:38 | XMS_ITS | Encounter Summary ---
Author Organization [facility] Address [address] [place] [address] Care Team Providers Care Hospital Television Rental Clerk Name Role Phone DEMETRIUS Mcguire Sr., Michael Dave Primary Care Pro vider Encounter Details Date Type Department Care Team (Latest Contact Info) Description 12/19/2002 Outpatient Historical [facility] Ear, Nose and Throat [address] [place] [address] [place] [address] Edgar Kyle MD [address] [address] SENSORNEUR HEAR LOSS NOS (Primary Dx) Social History Tobacco Use Types Packs/Day Years Used Date Smoking Tobacco: Never Assessed Comments Unknown Sex and Gender Information Value Date Recorded Sex Assigned at Not on file Legal Sex Female 5:11 AM HVAC OPERATIONS TECHNICIAN Gender Identity Not on file Sexual Orientation Not on file documented as of this encounter Plan of Treatment Not on file documented as of this encounter Visit Diagnoses Diagnosis Sensorineural hearing loss, unspecified- Primary documented in this encounter Care Teams Hospital Television Rental Clerk Relationship Specialty Start Date End Date Husam Mcguire Sr., FNP [address] [place], [place] [address] PCP - General 12/14/08 documented as of this encounter
--- OUTSIDE RECORDS SUMMARY | 2025-05-05 08:38 | XMS_ITS | Encounter Summary ---
Author Organization [facility] Address [address] [place] [address] Care Team Providers Care Community Health Navigator Name Role Phone DEMETRIUS Mcguire Sr., Michael Dave Primary Care Pro vider Encounter Details Date Type Department Care Team (Latest Contact Info) Description 03/02/2002 Outpatient Historical [facility] Ear, Nose and Throat E [place] [address] [place] [address] Cathy Funez AU.D NO ADDRESS ON FILE SENSORNEUR HEAR LOSS NOS (Primary Dx) Social History Tobacco Use Types Packs/Day Years Used Date Smoking Tobacco: Never Assessed Comments Unknown Sex and Gender Information Value Date Recorded Sex Assigned at Not on file Legal Sex Female 5:11 AM FIRE PROTECTION ENGINEER Gender Identity Not on file Sexual Orientation Not on file documented as of this encounter Plan of Treatment Not on file documented as of this encounter Visit Diagnoses Diagnosis Sensorineural hearing loss, unspecified- Primary documented in this encounter Care Teams Community Health Navigator Relationship Specialty Start Date End Date Husam Mcguire Sr., FNP [address] [place] [address] PCP - General 12/14/08 documented as of this encounter
--- OUTSIDE RECORDS SUMMARY | 2025-05-05 08:38 | XMS_ITS | Encounter Summary ---
Author Organization [facility] Address [address] [place] [address] Care Team Providers Care Skid Adzer Name Role Phone DEMETRIUS Mcguire Sr., Michael Dave Primary Care Pro vider Encounter Details Date Type Department Care Team (Latest Contact Info) Description 08/15/2002 Outpatient Historical [facility] Ear, Nose and Throat E [place] [address] [place] [address] Edgar Kyle MD [address] [address] SENSORNEUR HEAR LOSS NOS (Primary Dx) Social History Tobacco Use Types Packs/Day Years Used Date Smoking Tobacco: Never Assessed Comments Unknown Sex and Gender Information Value Date Recorded Sex Assigned at Not on file Legal Sex Female 5:11 AM POLISHER ALUMINUM Gender Identity Not on file Sexual Orientation Not on file documented as of this encounter Plan of Treatment Not on file documented as of this encounter Visit Diagnoses Diagnosis Sensorineural hearing loss, unspecified- Primary documented in this encounter Care Teams Skid Adzer Relationship Specialty Start Date End Date Husam Mcguire Sr., FNP [address] [place], [place] [address] PCP - General 12/14/08 documented as of this encounter
--- OUTSIDE RECORDS SUMMARY | 2025-05-05 08:38 | XMS_ITS | Encounter Summary ---
Author Organization [facility] Address [address] [place] [address] Care Team Providers Care Environmental Engineering Assistant Name Role Phone DEMETRIUS Mcguire Sr., Michael Dave Primary Care Pro vider Encounter Details Date Type Department Care Team (Latest Contact Info) Description 02/15/2002 Outpatient Historical [facility] Ear, Nose and Throat [address] [place] [address] [place] [place] [address] Cathy Funez AU.D NO ADDRESS ON FILE SENSORNEUR HEAR LOSS NOS (Primary Dx) Social History Tobacco Use Types Packs/Day Years Used Date Smoking Tobacco: Never Assessed Comments Unknown Sex and Gender Information Value Date Recorded Sex Assigned at Not on file Legal Sex Female 5:11 AM SUPERVISOR ORDER TAKERS Gender Identity Not on file Sexual Orientation Not on file documented as of this encounter Plan of Treatment Not on file documented as of this encounter Visit Diagnoses Diagnosis Sensorineural hearing loss, unspecified- Primary documented in this encounter Care Teams Environmental Engineering Assistant Relationship Specialty Start Date End Date Husam Mcguire Sr., FNP [address] [place] [address] PCP - General 12/14/08 documented as of this encounter
--- OUTSIDE RECORDS SUMMARY | 2025-05-05 08:38 | XMS_ITS | Encounter Summary ---
Author Organization [facility] Address [address] [place] [address] Care Team Providers Care Mental Health Practitioner Name Role Phone DEMETRIUS Mcguire Sr., Michael Dave Primary Care Pro vider Encounter Details Date Type Department Care Team (Latest Contact Info) Description 05/05/2004 Outpatient Historical [facility] Ear, Nose and Throat [address] [place] [address] Divina Bocanegra, PhD NO ADDRESS ON FILE SENSORY HEARING LOSS (Primary Dx) Social History Tobacco Use Types Packs/Day Years Used Date Smoking Tobacco: Never Assessed Comments Unknown Sex and Gender Information Value Date Recorded Sex Assigned at Not on file Legal Sex Female 5:11 AM YARD PIPE GRADER Gender Identity Not on file Sexual Orientation Not on file documented as of this encounter Plan of Treatment Not on file documented as of this encounter Visit Diagnoses Diagnosis Sensory hearing loss, bilateral- Primary documented in this encounter Care Teams Mental Health Practitioner Relationship Specialty Start Date End Date Husam Mcguire Sr., FNP [address] [place] [address] PCP - General 12/14/08 documented as of this encounter
--- OUTSIDE RECORDS SUMMARY | 2025-05-05 08:38 | XMS_ITS | Encounter Summary ---
Author Organization [facility] Address [address] [place] [address] Care Team Providers Care Jacquard Twine Polisher Operator Name Role Phone DEMETRIUS Mcguire Sr., Michael Dave Primary Care Pro vider Encounter Details Date Type Department Care Team (Latest Contact Info) Description 10/03/2002 Outpatient Historical [facility] Ear, Nose and Throat [address] [place] [address] Edgar Kyle MD [address] [address] SENSORNEUR HEAR LOSS NOS (Primary Dx) Social History Tobacco Use Types Packs/Day Years Used Date Smoking Tobacco: Never Assessed Comments Unknown Sex and Gender Information Value Date Recorded Sex Assigned at Not on file Legal Sex Female 5:11 AM BLASTING GANG MINER Gender Identity Not on file Sexual Orientation Not on file documented as of this encounter Plan of Treatment Not on file documented as of this encounter Visit Diagnoses Diagnosis Sensorineural hearing loss, unspecified- Primary documented in this encounter Care Teams Jacquard Twine Polisher Operator Relationship Specialty Start Date End Date Husam Mcguire Sr., FNP [address] [place], [place] [address] PCP - General 12/14/08 documented as of this encounter
--- OUTSIDE RECORDS SUMMARY | 2025-05-05 08:38 | XMS_ITS | Encounter Summary ---
Author Organization [facility] Address [address] [place] [address] Care Team Providers Care Tank Pumper Name Role Phone DEMETRIUS Mcguire Sr., Michael Dave Primary Care Pro vider Encounter Details Date Type Department Care Team (Late st Contact Info) Description 01/04/2002 Outpatient Historical [facility] Ear, Nose and Throat 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
--- OUTSIDE RECORDS SUMMARY | 2025-05-05 08:38 | XMS_ITS | Encounter Summary ---
Author Organization [facility] Address [address] [place] [address] Care Team Providers Care Shell Mold Bonding Machine Operator Name Role Phone DEMETRIUS Mcguire Sr., Michael Dave Primary Care Pro vider Encounter Details Date Type Department Care Team (Latest Contact Info) Description 08/22/2002 Outpatient Historical [facility] Ear, Nose and Throat 

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
[2025-05-05 08:48] VITALS: BP 100/66; PULSE 96; RESP 17; TEMP 36.8; O2SAT 99; BMI 18.1
--- NOTE | 2025-05-05 09:25 | ED_ITS ---
HPI - Abdominal Pain 2 General: Chief Complaint: Abdominal Pain Stated Complaint: abd pain Time Seen by Provider: 05/05/25 08:37 Source: patient Mode of arrival: ambulatory Limitations: no limitations History of Present Illness: 24-year-old female states she found out she is yesterday states today she was working had some sharp lower abdominal pains. States pain is a 2 out of 10 currently she is in no distress she denies any vaginal bleeding denies any vomiting denies any right lower quadrant pain. States its mainly suprapubic Associated Symptoms: Denies chills, diarrhea, dysuria, fever(s), nausea and vomiting Related Data Date of Last Menstrual Period: 04/04/25 Home Medications ?Medication ?Instructions ?Recorded ?Confirmed acetaminophen 325 mg tablet 325 mg PO QID PRN Fever Or Pain 02/26/25 04/20/25 (Tylenol) norethindrone (contraceptive) 0.35 0.35 mg PO DAILY 04/20/25 mg tablet (Incassia) Previous Rx's ?Medication ?Instructions ?Recorded promethazine 25 mg tablet 25 mg PO Q6H PRN nausea and 02/26/25 vomiting #20 tabs Allergies Allergy/AdvReac Type Severity Reaction Status Date / Time caramel Allergy ALGY-Rash Verified 04/20/25 09:22 City Water AdvReac ADR-Vomitin Uncoded 04/20/25 09:22 g Review of Systems 2 Const: Denies: fever(s), chills, body aches or change in appetite ENMT: Denies: throat pain or dental pain Card: Denies: chest pain Resp: Denies: dyspnea GI: Reports: abdominal pain; Denies: nausea, vomiting or diarrhea : Denies: dysuria Musc: Denies: neck pain or back pain Skin/Breast: Denies: rash Neuro: Denies: headache(s) PFSH ED 2 PFSH: Surgical History S/P exploratory laparotomy Jejunal resection, Meckel's diverticulectomy and drainage of intra-abdominal abscess-[facility] 2016 Social History Smoking and tobacco/nicotine status: never used tobacco/nicotine Female Reproductive History: Date of last menstrual period: 04/04/25 Physical Exam 2 Const: COMMON NORMALS: no acute distress, patient oriented x3 and healthy appearing HENMT: COMMON NORMALS: normocephalic and atraumatic HEAD & SCALP: n ormocephalic and atraumatic Eye: COMMON NORMALS: Equal, round and reactive pupils present and EOMs intact bilaterally PUPIL: Yes Equal, round and reactive pupils present Neck/C-Spine: COMMON NORMALS: full ROM and supple Chest: COMMONS NORMALS: normal inspection of the chest and normal palpation of entire chest wall Resp: COMMON NORMALS: normal respiratory effort, No retractions, No use of accessory muscles and clear to auscultation bilaterally AUSCULTATION: clear to auscultation bilaterally Cardio: COMMON NORMALS: regular rate, regular rhythm and No murmurs present (Cardio) RATE: regular rate RHYTHM: regular rhythm GI: COMMON NORMALS: Normal to inspection, nondistended, normoactive bowel sounds present, Soft to palpation, non-tender and no masses PALPATION: Yes Soft to palpation Extremity: COMMON NORMALS: normal to inspection and full ROM Neuro: COMMON NORMALS: patient oriented x3, moves all extremities and no focal motor deficits Psych: COMMON NORMALS: mental status grossly normal, Normal thought process present and cooperative THOUGHT PROCESS: Normal thought process present Skin: COMMON NORMALS: no rashes or lesions noted and no wounds GENERAL SKIN EXAM: no rashes or lesions noted Course 2 Vital Signs: Vital signs: Vital Signs Temperature 98.3 F 05/05/25 08:48 Pulse Rate 66 05/05/25 09:27 Respiratory Rate 17 05/05/25 09:27 Blood Pressure 101/75 05/05/25 09:27 Pulse Oximetry 99 05/05/25 09:27 Oxygen Delivery Me thod Room Air 05/05/25 08:48 MDM - Abdominal Pain Medical Decision Making Patient presents here with abdominal pain in . She has been well- appearing here exam and exam is benign she has no bleeding no signs of ectopic her quantitative level here is only 300 so ultrasound would likely not add anything at this time she is to follow-up with OB in 2 to 3 days have a repeat quant if she has any worsening pain or bleeding she is return to ER she understands agrees to the plan Medical Records I reviewed the patient's medical records. Lab Data I reviewed the patient's lab results. 05/05/25 09:23 05/05/25 09:23 Labs/Radiology: Laboratory Results WBC 10.14 10^3/uL (3.29-11.43) 05/05/25 09:23 RBC 4.92 10^6/uL (3.85-5.65) 05/05/25 09:23 Hgb 14.20 g/dL (11.27-16.99) 05/05/25 09:23 Hct 41.8 % (36-47) 05/05/25 09:23 MCV 85.0 fl (85-98) 05/05/25 09:23 MCH 28.9 pg (27-33) 05/05/25 09:23 MCHC 34.0 g/dL (30-55) 05/05/25 09:23 RDW 12.1 % (12.1-15.1) 05/05/25 09:23 Plt Count 223 10^3/cmm (157-399) 05/05/25 09:23 MPV 10.3 fL (7.4-10.4) 05/05/25 09:23 Neut % (Auto) 68.2 % 05/05/25 09:23 Lymph % (Auto) 18.1 % 05/05/25 09:23 Juncos % (Auto) 11.5 % 05/05/25 09:23 Eos % (Auto) 1.3 % 05/05/25 09:23 Baso % (Auto) 0.5 % 05/05/25 09:23 Neut # (Auto) 6.91 10^3/uL (1.8-7.7) 05/05/25 09:23 Lymph # (Auto) 1.8 10^3/uL (0.8-4.8) 05/05/25 09:23 Juncos # (Auto) 1.2 10^3/uL (0.2-0.9) H 05/05/25 09:23 Eos # (Auto) 0.1 10^3/uL (0.0-0.8) 05/05/25 09:23 Baso # (Auto) 0.1 10^3/uL (0.0-0.1) 05/05/25 09:23 Nucleated RBC % (auto) 0 % 05/05/25 09:23 Nucleated RBCs # 0.0 /100WBC 05/05/25 09:23 Sodium 137 mmol/L (136-145) 05/05/25 09:23 Potassium 4.0 mmol/L (3.5-5.1) 05/05/25 09:23 Chloride 103 mmol/L (98-107) 05/05/25 09:23 Carbon Dioxide 23 mmol/L (22-29) 05/05/25 09:23 Anion Gap 15.0 (5-19) 05/05/25 09:23 BUN 9 mg/dL (6-20) 05/05/25 09:23 Creatinine 0.6 mg/dL (0.5-0.9) 05/05/25 09:23 GFR Calculation 122.8 mL/min (90-130) 05/05/25 09:23 Glucose 82 mg/dL (65-115) 05/05/25 09:23 Calculated Osmolality 282 mOsm/kg (285-295) L 05/05/25 09:23 Calcium 9.2 mg/dL (8.5-10.5) 05/05/25 09:23 Total Bilirubin 0.5 mg/dL (0.15-1.2) 05/05/25 09:23 AST 20 U/L (0-32) 05/05/25 09:23 ALT 19 U/L (0-33) 05/05/25 09:23 Alkaline Phosphatase 51 U/L (35-105) 05/05/25 09:23 Total Protein 7.6 g/dL (6.6-8.7) 05/05/25 09:23 Albumin 4.0 g/dL (3.5-5.2) 05/05/25 09:23 Globulin 3.6 g/dL (1.3-4.6) 05/05/25 09:23 Lipase 24 U/L (13-60) 05/05/25 09:23 HCG, Qual Positive (Negative) H 05/05/25 09:23 Ser , Semi-Qnt 306.80 mIU/mL 05/05/25 09:23 Urine Color Yellow (Yellow) 05/05/25 09:22 Urine Appearance Clear (CLEAR) 05/05/25 09:22 Urine pH 5.5 (5-7) 05/05/25 09:22 Ur Specific [place] 1.028 (1.005-1.030) 05/05/25 09:22 Urine Protein Negative (Negative) 05/05/25 09:22 Urine Glucose (UA) Negative (Normal) 05/05/25 09:22 Urine Ketones Trace (Negative) 05/05/25 09:22 Urine Blood Negative (Negative) 05/05/25 09:22 Urine Nitrate Negative (Negative) 05/05/25 09:22 Urine Bilirubin Negative (Negative) 05/05/25 09:22 Urine Urobilinogen 1.0 mg/dL (Negative) 05/05/25 09:22 Ur Leukocyte Esterase Trace (Negative) A 05/05/25 09:22 Urine RBC 0-2 /hpf (0-2) 05/05/25 09:22 Urine WBC 0-5 /hpf (0-5) 05/05/25 09:22 Ur Squamous Epith Cells 0-5 /hpf (0-5) 05/05/25 09:22 Amorphous Sediment Not Reportable 05/05/25 09:22 Urine Bacteria None seen /hpf (NONE) 05/05/25 09:22 Hyaline Casts 0.81 /lpf 05/05/25 09:22 No radiology studies performed this visit Discharge Plan Discharge Patient Disposition: Home Clinical Impression: Abdominal pain affecting Condition: Stable Prescriptions: No Action norethindrone (contraceptive) [Incassia] 0.35 mg tablet 0.35 mg PO DAILY acetaminophen [Tylenol] 325 mg Tablet 325 mg PO QID PRN (Reason: Fever Or Pain) promethazine 25 mg tablet 25 mg PO Q6H PRN (Reason: nausea and vomiting) Qty: 20 0RF Discharge Orders: Discharge ED (Routine); Ordered 05/05/25 Ordered By: Rl Boswell Referrals: Mark Galdamez MD [Primary Care Provider, Family Practice] Discharge Diet: Advance as tolerated Discharge Activity: Resume usual activity Patient Instructions: Abdominal Pain (ED), Abdominal Pain in (ED) Print Language: Slovenian Coding Level of Care Code ED Graphic Illustrator for Logan Paniagua
[2025-05-05 09:27] VITALS: BP 101/75; PULSE 66; RESP 17; O2SAT 99
[2025-05-05 09:36] LABS: Hematocrit 41.8 % (36-47); Hemoglobin 14.20 g/dL (11.27-16.99); Mean Corpuscular HGB Conc 34.0 g/dL (30-55); Mean Corpuscular Hemoglobin 28.9 pg (27-33); Mean Corpuscular Volume 85.0 fl (85-98); Nucleated Red Blood Cells % 0 %; Platelet Count 223 10^3/cmm (157-399); Red Blood Count 4.92 10^6/uL (3.85-5.65); White Blood Count 10.14 10^3/uL (3.29-11.43)
[2025-05-05 09:40] LABS: Glucose Urine UA Negative (Normal); Nitrate Urine Negative (Negative); Specific Gravity, Urine 1.028 (1.005-1.030)
[2025-05-05 09:47] LABS: Add Urine Microscopic? YES
[2025-05-05 09:54] LABS: HCG, Serum Qual Positive (Negative)
[2025-05-05 09:55] LABS: Alanine Aminotransferase 19 U/L (0-33); Albumin Level 4.0 g/dL (3.5-5.2); Alkaline Phosphatase 51 U/L (35-105); Aspartate Amino Transferase 20 U/L (0-32); Blood Urea Nitrogen 9 mg/dL (6-20); Calcium 9.2 mg/dL (8.5-10.5); Carbon Dioxide 23 mmol/L (22-29); Chloride 103 mmol/L (98-107); Creatinine Clr Calc Pharmacy 118.8048; Globulin 3.6 g/dL (1.3-4.6); Glucose 82 mg/dL (65-115); Lipase 24 U/L (13-60); Osmolality Calculated 282 mOsm/kg (285-295); Sodium 137 mmol/L (136-145); Total Protein 7.6 g/dL (6.6-8.7)
[2025-05-05 09:56] LABS: Anion Gap 15.0 (5-19); Potassium 4.0 mmol/L (3.5-5.1)
[2025-05-05 10:09] VITALS: BP 98/55; PULSE 67; O2SAT 98
--- NOTE | 2025-05-07 08:22 | DCPLANNER ---
messaged womens [facility] for er f/u
== END 2025-05-05 10:17 | disposition home or self-care (01) ==
PROVIDERS: Emergency Provider Emergency Medicine; PCP Family Medicine
DX: O26.891 Other specified pregnancy related conditions, first trimester (principal); Z3A.01 Less than 8 weeks gestation of pregnancy; R10.9 Unspecified abdominal pain
CPT/HCPCS: 36415; 80053; 81001; 83690; 84702; 84703; 85025; 99283

== ENCOUNTER 2025-05-17 20:16 | Emergency (ER) | payer OTHER, SELFPAY ==
[2025-05-17 20:20] VITALS: BP 91/58; PULSE 80; RESP 16; TEMP 36.9; O2SAT 97; BMI 18.8
--- OUTSIDE RECORDS SUMMARY | 2025-05-17 20:20 | XMS_ITS | Encounter Summary ---
Author Organization [facility] Address [address] [place] [address] Care Team Providers Care Operation Research Analyst Name Role Phone DEMETRIUS Mcguire Sr., Michael Dave Primary Care Pro vider Encounter Details Date Type Department Care Team (Late st Contact Info) Description 07/10/2003 Outpatient Historical [facility] Ear, Nose and Throat [address] [place] [address] Social History Tobacco Use Types Packs/Day Years Used Date Smoking Tobacco: Never Assessed Comments Unknown Sex and Gender Information Value Date Recorded Sex Assigned at Not on file Legal Sex Female 5:11 AM INSTRUMENTS SALES REPRESENTATIVE Gender Identity Not on file Sexual Orientation Not on file documented as of this encounter Plan of Treatment Not on file documented as of this encounter Visit Diagnoses Not on filedocumented in this encounter Care Teams Operation Research Analyst Relationship Specialty Start Date End Date Husam Mcguire Sr., FNP [address] [place] [address] PCP - General 12/14/08 documented as of this encounter
--- OUTSIDE RECORDS SUMMARY | 2025-05-17 20:20 | XMS_ITS | Encounter Summary ---
Author Organization [facility] Address [address] [place] [address] Care Team Providers Care Commercial Development Manager Name Role Phone DEMETRIUS Mcguire Sr., Michael Dave Primary Care Pro vider Encounter Details Date Type Department Care Team (Latest Contact Info) Description 03/06/2003 Outpatient Historical [facility] Ear, Nose and Throat [address] [place] [address] Edgar yKle MD [address] [address] SENSORNEUR HEAR LOSS NOS (Primary Dx) Social History Tobacco Use Types Packs/Day Years Used Date Smoking Tobacco: Never Assessed Comments Unknown Sex and Gender Information Value Date Recorded Sex Assigned at Not on file Legal Sex Female 5:11 AM HAT MARKER Gender Identity Not on file Sexual Orientation Not on file documented as of this encounter Plan of Treatment Not on file documented as of this encounter Visit Diagnoses Diagnosis Sensorineural hearing loss, unspecified- Primary documented in this encounter Care Teams Commercial Development Manager Relationship Specialty Start Date End Date Husam Mcguire Sr., FNP [address] [place], [place] [address] PCP - General 12/14/08 documented as of this encounter
--- OUTSIDE RECORDS SUMMARY | 2025-05-17 20:20 | XMS_ITS | Encounter Summary ---
Author Organization [facility] Address [address] [place] [address] Care Team Providers Care Cost Analyst Name Role Phone DEMETRIUS Mcguire Sr., Michael Dave Primary Care Pro vider Encounter Details Date Type Department Care Team (Latest Contact Info) Description 12/19/2002 Outpatient Historical [facility] Ear, Nose and Throat [address] [place] [address] Edgar Kyle MD [address] [address] SENSORNEUR HEAR LOSS NOS (Primary Dx) Social History Tobacco Use Types Packs/Day Years Used Date Smoking Tobacco: Never Assessed Comments Unknown Sex and Gender Information Value Date Recorded Sex Assigned at Not on file Legal Sex Female 5:11 AM SCREEN PRINT OPERATOR Gender Identity Not on file Sexual Orientation Not on file documented as of this encounter Plan of Treatment Not on file documented as of this encounter Visit Diagnoses Diagnosis Sensorineural hearing loss, unspecified- Primary documented in this encounter Care Teams Cost Analyst Relationship Specialty Start Date End Date Husam Mcguire Sr., FNP [address] [place], [place] [address] PCP - General 12/14/08 documented as of this encounter
--- OUTSIDE RECORDS SUMMARY | 2025-05-17 20:20 | XMS_ITS | Encounter Summary ---
Author Organization [facility] Address [address] [place] [address] Care Team Providers Care Doorperson Or Luggage Porter Name Role Phone DEMETRIUS Mcguire Sr., Michael Dave Primary Care Pro vider Encounter Details Date Type Department Care Team (Latest Contact Info) Description 10/25/2006 Outpatient Historical [facility] Ear, Nose and Throat [address] [place] [address] Alejandro Dietz AU.D NO ADDRESS ON FILE Sensory Hearing Loss, Bilateral (Primary Dx) Social History Tobacco Use Types Packs/Day Years Used Date Smoking Tobacco: Never Assessed Comments Unknown Sex and Gender Information Value Date Recorded Sex Assigned at Not on file Legal Sex Female 5:11 AM WRAPPER HAND Gender Identity Not on file Sexual Orientation Not on file documented as of this encounter Plan of Treatment Not on file documented as of this encounter Visit Diagnoses Diagnosis Sensory hearing loss, bilateral- Primary documented in this encounter Care Teams Doorperson Or Luggage Porter Relationship Specialty Start Date End Date Husam Mcguire Sr., FNP [address] [place] [address] PCP - General 12/14/08 documented as of this encounter
--- OUTSIDE RECORDS SUMMARY | 2025-05-17 20:20 | XMS_ITS | Encounter Summary ---
Author Organization [facility] Address [address] [place] [address] Care Team Providers Care Transformation Coach Name Role Phone DEMETRIUS Mcguire Sr., Michael Dave Primary Care Pro vider Encounter Details Date Type Department Care Team (Late st Contact Info) Description 04/03/2002 Outpatient Historical [facility] Ear, Nose and Throat [address] [address] [place] [address] Social History Tobacco Use Types Packs/Day Years Used Date Smoking Tobacco: Never Assessed Comments Unknown Sex and Gender Information Value Date Recorded Sex Assigned at Not on file Legal Sex Female 5:11 AM A AUXILIARY Gender Identity Not on file Sexual Orientation Not on file documented as of this encounter Plan of Treatment Not on file documented as of this encounter Visit Diagnoses Not on filedocumented in this encounter Care Teams Transformation Coach Relationship Specialty Start Date End Date Husam Mcguire Sr., FNP [address] [place] [address] PCP - General 12/14/08 documented as of this encounter
--- OUTSIDE RECORDS SUMMARY | 2025-05-17 20:20 | XMS_ITS | Encounter Summary ---
Author Organization [facility] Address [address] [place] [address] Care Team Providers Care Grocery Store Clerk Name Role Phone DEMETRIUS Mcguire Sr., Michael Dave Primary Care Pro vider Encounter Details Date Type Department Care Team (Late st Contact Info) Description 12/15/2001 Outpatient Historical [facility] Ear, Nose and Throat [address] [place] [address] [place] [address] Social History Tobacco Use Types Packs/Day Years Used Date Smoking Tobacco: Never Assessed Comments Unknown Sex and Gender Information Value Date Recorded Sex Assigned at Not on file Legal Sex Female 5:11 AM CHIEF OF SERVICE Gender Identity Not on file Sexual Orientation Not on file documented as of this encounter Plan of Treatment Not on file documented as of this encounter Visit Diagnoses Not on filedocumented in this encounter Care Teams Grocery Store Clerk Relationship Specialty Start Date End Date Husam Mcguire Sr., FNP [address] [place] [address] PCP - General 12/14/08 documented as of this encounter
--- OUTSIDE RECORDS SUMMARY | 2025-05-17 20:20 | XMS_ITS | Encounter Summary ---
Author Organization [facility] Address [address] [place] [address] Care Team Providers Care New Accounts Banking Representative Name Role Phone DEMETRIUS Mcguire Sr., Michael Dave Primary Care Pro vider Encounter Details Date Type Department Care Team (Latest Contact Info) Description 10/17/2002 Outpatient Historical [facility] Ear, Nose and Throat [address] [place] [address] [place] [address] Edgar Kyle MD [address] [address] SENSORNEUR HEAR LOSS NOS (Primary Dx) Social History Tobacco Use Types Packs/Day Years Used Date Smoking Tobacco: Never Assessed Comments Unknown Sex and Gender Information Value Date Recorded Sex Assigned at Not on file Legal Sex Female 5:11 AM PRODUCTION MINER Gender Identity Not on file Sexual Orientation Not on file documented as of this encounter Plan of Treatment Not on file documented as of this encounter Visit Diagnoses Diagnosis Sensorineural hearing loss, unspecified- Primary documented in this encounter Care Teams New Accounts Banking Representative Relationship Specialty Start Date End Date Husam Mcguire Sr., FNP [address] [place], [place] [address] PCP - General 12/14/08 documented as of this encounter
--- OUTSIDE RECORDS SUMMARY | 2025-05-17 20:20 | XMS_ITS | Encounter Summary ---
Author Organization [facility] Address [address] [place] [address] Care Team Providers Care New Media Strategist Name Role Phone DEMETRIUS Mcguire Sr., Michael Dave Primary Care Pro vider Encounter Details Date Type Department Care Team (Latest Contact Info) Description 12/22/2001 Outpatient Historical [facility] Ear, Nose and Throat E [place] [address] [place] [address] [place] [address] Shiv Joyce [address] [place], [place] [id number] CHR NONSUP OM NOS/NEC (Primary Dx) Social History Tobacco Use Types Packs/Day Years Used Date Smoking Tobacco: Never Assessed Comments Unknown Sex and Gender Information Value Date Recorded Sex Assigned at Not on file Legal Sex Female 5:11 AM SKIN INSTALLER Gender Identity Not on file Sexual Orientation Not on file documented as of this encounter Plan of Treatment Not on file documented as of this encounter Visit Diagnoses Diagnosis Other and unspecified chronic nonsuppurative otitis media- Primary documented in this encounter Care Teams New Media Strategist Relationship Specialty Start Date End Date Husam Mcguire Sr., FNP [address] [place] [address] PCP - General 12/14/08 documented as of this encounter
--- OUTSIDE RECORDS SUMMARY | 2025-05-17 20:20 | XMS_ITS | Encounter Summary ---
Author Organization [facility] Address [address] [place] [address] Care Team Providers Care Professional Services Manager Name Role Phone DEMETRIUS Mcguire Sr., Michael Dave Primary Care Pro vider Encounter Details Date Type Department Care Team (Latest Contact Info) Description 12/15/2001 Outpatient Historical [facility] Ear, Nose and Throat [address] [place] 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
--- OUTSIDE RECORDS SUMMARY | 2025-05-17 20:20 | XMS_ITS | Clinical Summary ---
Author Organization [facility] Address [address] [place] [address] Care Team Providers Care Direct Support Professional Caregiver Name Role Phone Shayla Pineda, DEMETRIUS, Husam [...] on file Legal Sex Female 1:10 AM HAT AND CAP PARTS CUTTER HAND Gender Identity Not on file Sexual Orientation Not on file Last Filed Vital Signs Vital Sign Reading Time Taken Comments Blood Pressure 112/72 12/02/2016 10:53 AM CDT Pulse 120 12/02/2016 10:53 AM CDT Temperature 36.7 C (98 F) 10/29/2016 11:32 AM HAT AND CAP PARTS CUTTER HAND Respiratory Rate 18 10/29/2016 11:32 AM HAT AND CAP PARTS CUTTER HAND Oxygen Saturation - - Inhaled Oxygen Concentration [...] 02/28/2001, 2000 Medical Devices Implanted Type Area Equipment Operator/Laborer Device Identifier Shelf Expiration Date Model / Serial / Lot Pros Cochlear Hires 90k 1j Ci-1400-01 - [id number] Implanted:Qty: 1 on 11/12/2011 by Jay Ferris DO Ear Left: Ear [employer]V [employer] 09/13/2013 CI-1400-01 / [id number] / [id number] Wire K Trocar Pt [id number] 292.16 - [id number] Implanted:Qty: 2 on 10/08/2016 by Roger Bland MD Wire Left: Arm SYNTHES STRATEC 292.16 / / [id number] 601 Insurance [place] [id number] POS II MEDICARE PART A HOSPITAL ONLY Care Teams Direct Support Professional Caregiver Relationship Specialty Start Date End Date Husam Mcguire Sr., FNP [address] [place] [address] PCP - General 11/14/20
--- OUTSIDE RECORDS SUMMARY | 2025-05-17 20:20 | XMS_ITS | Encounter Summary ---
Author Organization [facility] Address [address] [place] [address] Care Team Providers Care Cork Insulator Helper Name Role Phone DEMETRIUS Mcguire Sr., Michael Dave Primary Care Pro vider Encounter Details Date Type Department Care Team (Latest Contact Info) Description 04/27/2002 Outpatient Historical [facility] Ear, Nose and Throat [address] [place] [address] [place] [address] Edgar Kyle MD [address] [address] SENSORNEUR HEAR LOSS NOS (Primary Dx); IMPACTED CERUMEN Social History Tobacco Use Types Packs/Day Years Used Date Smoking Tobacco: Never Assessed Comments Unknown Sex and Gender Information Value Date Recorded Sex Assigned at Not on file Legal Sex Female 5:11 AM PLYWOOD MATCHER Gender Identity Not on file Sexual Orientation Not on file documented as of this encounter Plan of Treatment Not on file documented as of this encounter Visit Diagnoses Diagnosis Sensorineural hearing loss, unspecified- Primary Impacted cerumen documented in this encounter Care Teams Cork Insulator Helper Relationship Specialty Start Date End Date Husam Mcguire Sr., FNP [address] [place] [address] PCP - General 12/14/08 documented as of this encounter
--- OUTSIDE RECORDS SUMMARY | 2025-05-17 20:20 | XMS_ITS | Encounter Summary ---
Author Organization [facility] Address [address] [place] [address] Care Team Providers Care Circular Sawyer Helper Name Role Phone DEMETRIUS Mcguire Sr., Michael Dave Primary Care Pro vider Encounter Details Date Type Department Care Team (Latest Contact Info) Description 04/03/2002 Outpatient Historical [facility] Ear, Nose and Throat E [place] [address] [place] [address] [place] [address] Edgar Kyle MD [address] [address] SENSORNEUR HEAR LOSS NOS (Primary Dx) Social History Tobacco Use Types Packs/Day Years Used Date Smoking Tobacco: Never Assessed Comments Unknown Sex and Gender Information Value Date Recorded Sex Assigned at Not on file Legal Sex Female 5:11 AM MEDICAL SCIENCE LIAISON Gender Identity Not on file Sexual Orientation Not on file documented as of this encounter Plan of Treatment Not on file documented as of this encounter Visit Diagnoses Diagnosis Sensorineural hearing loss, unspecified- Primary documented in this encounter Care Teams Circular Sawyer Helper Relationship Specialty Start Date End Date Husam Mcguire Sr., FNP [address] [place], [place] [address] PCP - General 12/14/08 documented as of this encounter
--- OUTSIDE RECORDS SUMMARY | 2025-05-17 20:20 | XMS_ITS | Encounter Summary ---
Author Organization [facility] Address [address] [place] [address] Care Team Providers Care Lan Specialist Name Role Phone DEMETRIUS Mcguire Sr., Michael Dave Primary Care Pro vider Encounter Details Date Type Department Care Team (Latest Contact Info) Description 06/19/2002 Outpatient Historical [facility] Ear, Nose and Throat [address] [place] [address] [place] [address] Edgar Kyle MD [address] [address] SENSORNEUR HEAR LOSS NOS (Primary Dx) Social History Tobacco Use Types Packs/Day Years Used Date Smoking Tobacco: Never Assessed Comments Unknown Sex and Gender Information Value Date Recorded Sex Assigned at Not on file Legal Sex Female 5:11 AM BILLET WORKER Gender Identity Not on file Sexual Orientation Not on file documented as of this encounter Plan of Treatment Not on file documented as of this encounter Visit Diagnoses Diagnosis Sensorineural hearing loss, unspecified- Primary documented in this encounter Care Teams Lan Specialist Relationship Specialty Start Date End Date Husam Mcguire Sr., FNP [address] [place], [place] [address] PCP - General 12/14/08 documented as of this encounter
--- OUTSIDE RECORDS SUMMARY | 2025-05-17 20:20 | XMS_ITS | Encounter Summary ---
Author Organization [facility] Address [address] [place] [address] Care Team Providers Care Soft Sugar Supervisor Name Role Phone DEMETRIUS Mcguire Sr., Michael Dave Primary Care Pro vider Encounter Details Date Type Department Care Team (Latest Contact Info) Description 12/22/2001 Outpatient Historical [facility] Ear, Nose and Throat [address] [place] [address] [place] [address] Shiv Joyce [address] [place], [place] [phone] SENSORNEUR HEAR LOSS NOS (Primary Dx) Social History Tobacco Use Types Packs/Day Years Used Date Smoking Tobacco: Never Assessed Comments Unknown Sex and Gender Information Value Date Recorded Sex Assigned at Not on file Legal Sex Female 5:11 AM FINISHER OPERATOR Gender Identity Not on file Sexual Orientation Not on file documented as of this encounter Plan of Treatment Not on file documented as of this encounter Visit Diagnoses Diagnosis Sensorineural hearing loss, unspecified- Primary documented in this encounter Care Teams Soft Sugar Supervisor Relationship Specialty Start Date End Date Husam Mcguire Sr., FNP [address] [place] [address] PCP - General 12/14/08 documented as of this encounter
--- OUTSIDE RECORDS SUMMARY | 2025-05-17 20:20 | XMS_ITS | Encounter Summary ---
Author Organization [facility] Address [address] [place] [address] Care Team Providers Care Logistics Center Manager Name Role Phone DEMETRIUS Mcguire Sr., Michael Dave Primary Care Pro vider Encounter Details Date Type Department Care Team (Latest Contact Info) Description 08/15/2002 Outpatient Historical [facility] Ear, Nose and Throat [address] [place] [address] [place] [address] Edgar Kyle MD [address] [address] SENSORNEUR HEAR LOSS NOS (Primary Dx) Social History Tobacco Use Types Packs/Day Years Used Date Smoking Tobacco: Never Assessed Comments Unknown Sex and Gender Information Value Date Recorded Sex Assigned at Not on file Legal Sex Female 5:11 AM BRILLIANDEER LOOPER Gender Identity Not on file Sexual Orientation Not on file documented as of this encounter Plan of Treatment Not on file documented as of this encounter Visit Diagnoses Diagnosis Sensorineural hearing loss, unspecified- Primary documented in this encounter Care Teams Logistics Center Manager Relationship Specialty Start Date End Date Husam Mcguire Sr., FNP [address] [place], [place] [address] PCP - General 12/14/08 documented as of this encounter
--- OUTSIDE RECORDS SUMMARY | 2025-05-17 20:20 | XMS_ITS | Encounter Summary ---
Author Organization [facility] Address [address] [place] [address] Care Team Providers Care Outboard Motor Mechanic Name Role Phone DEMETRIUS Mcguire Sr., Michael Dave Primary Care Pro vider Encounter Details Date Type Department Care Team (Latest Contact Info) Description 08/22/2002 Outpatient Historical [facility] Ear, Nose and Throat [address] [place] [address] [place] [place] [address] Edgar Kyle MD [address] [address] SENSORNEUR HEAR LOSS NOS (Primary Dx) Social History Tobacco Use Types Packs/Day Years Used Date Smoking Tobacco: Never Assessed Comments Unknown Sex and Gender Information Value Date Recorded Sex Assigned at Not on file Legal Sex Female 5:11 AM MAPLE PRODUCTS MAKER Gender Identity Not on file Sexual Orientation Not on file documented as of this encounter Plan of Treatment Not on file documented as of this encounter Visit Diagnoses Diagnosis Sensorineural hearing loss, unspecified- Primary documented in this encounter Care Teams Outboard Motor Mechanic Relationship Specialty Start Date End Date Husam Mcguire Sr., FNP [address] [place], [place] [address] PCP - General 12/14/08 documented as of this encounter
--- OUTSIDE RECORDS SUMMARY | 2025-05-17 20:20 | XMS_ITS | Encounter Summary ---
Author Organization [facility] Address [address] [place] [address] Care Team Providers Care Histology Specialist Name Role Phone DEMETRIUS Mcguire Sr., Michael Dave Primary Care Pro vider Encounter Details Date Type Department Care Team (Latest Contact Info) Description 03/02/2002 Outpatient Historical [facility] Ear, Nose and Throat [address] [place] [address] [place] [address] Cathy Funez AU.D NO ADDRESS ON FILE SENSORNEUR HEAR LOSS NOS (Primary Dx) Social History Tobacco Use Types Packs/Day Years Used Date Smoking Tobacco: Never Assessed Comments Unknown Sex and Gender Information Value Date Recorded Sex Assigned at Not on file Legal Sex Female 5:11 AM WEBBING SEAMER POUND NET Gender Identity Not on file Sexual Orientation Not on file documented as of this encounter Plan of Treatment Not on file documented as of this encounter Visit Diagnoses Diagnosis Sensorineural hearing loss, unspecified- Primary documented in this encounter Care Teams Histology Specialist Relationship Specialty Start Date End Date Husam Mcguire Sr., FNP [address] [place] [address] PCP - General 12/14/08 documented as of this encounter
--- OUTSIDE RECORDS SUMMARY | 2025-05-17 20:20 | XMS_ITS | Encounter Summary ---
Author Organization [facility] Address [address] [place] [address] Care Team Providers Care Rubber Goods Tester Water Name Role Phone DEMETRIUS Mcguire Sr., Michael Dave Primary Care Pro vider Encounter Details Date Type Department Care Team (Latest Contact Info) Description 08/07/2005 Outpatient Historical [facility] Ear, Nose and Throat [address] [place] [address] [place] [address] Divina Bocanegra, PhD NO ADDRESS ON FILE SENSORY HEARING LOSS (Primary Dx) Social History Tobacco Use Types Packs/Day Years Used Date Smoking Tobacco: Never Assessed Comments Unknown Sex and Gender Information Value Date Recorded Sex Assigned at Not on file Legal Sex Female 5:11 AM AEROPHYSICS ENGINEER Gender Identity Not on file Sexual Orientation Not on file documented as of this encounter Plan of Treatment Not on file documented as of this encounter Visit Diagnoses Diagnosis Sensory hearing loss, bilateral- Primary documented in this encounter Care Teams Rubber Goods Tester Water Relationship Specialty Start Date End Date Husam Mcguire Sr., FNP [address] [place] [address] PCP - General 12/14/08 documented as of this encounter
--- OUTSIDE RECORDS SUMMARY | 2025-05-17 20:20 | XMS_ITS | Encounter Summary ---
Author Organization [facility] Address [address] [place] [address] Care Team Providers Care Dye House Worker Name Role Phone DEMETRIUS Mcguire Sr., Michael Dave Primary Care Pro vider Encounter Details Date Type Department Care Team (Latest Contact Info) Description 01/04/[address] [facility] Ear, Nose and Throat E [place] [address] [place] [address] [place] [address] Shiv Joyce [address] [place] [address] SENSORNEUR HEAR LOSS NOS (Primary Dx); CHR NONSUP OM NOS/NEC Social History Tobacco Use Types Packs/Day Years Used Date Smoking Tobacco: Never Assessed Comments Unknown Sex and Gender Information Value Date Recorded Sex Assigned at Not on file Legal Sex Female 5:11 AM STAFF DEVELOPMENT COORDINATOR Gender Identity Not on file Sexual Orientation Not on file documented as of this encounter Plan of Treatment Not on file documented as of this encounter Visit Diagnoses Diagnosis Sensorineural hearing loss, unspecified- Primary Other and unspecified chronic nonsuppurative otitis media documented in this encounter Care Teams Dye House Worker Relationship Specialty Start Date End Date Husam Mcguire Sr., FNP [address] [place] [address] PCP - General 12/14/08 documented as of this encounter
--- OUTSIDE RECORDS SUMMARY | 2025-05-17 20:20 | XMS_ITS | Encounter Summary ---
Author Organization [facility] Address [address] [place] [address] Care Team Providers Care Postmaster Relief Name Role Phone DEMETRIUS Mcguire Sr., Michael Dave Primary Care Pro vider Encounter Details Date Type Department Care Team (Latest Contact Info) Description 10/24/2002 Outpatient Historical [facility] Ear, Nose and Throat [address] [place] [address] [place] [place] [address] [place] [address] Edgar Kyle MD [address] [address] SENSORNEUR HEAR LOSS NOS (Primary Dx) Social History Tobacco Use Types Packs/Day Years Used Date Smoking Tobacco: Never Assessed Comments Unknown Sex and Gender Information Value Date Recorded Sex Assigned at Not on file Legal Sex Female 5:11 AM SAP PORTAL CONSULTANT Gender Identity Not on file Sexual Orientation Not on file documented as of this encounter Plan of Treatment Not on file documented as of this encounter Visit Diagnoses Diagnosis Sensorineural hearing loss, unspecified- Primary documented in this encounter Care Teams Postmaster Relief Relationship Specialty Start Date End Date Husam Mcguire Sr., FNP [address] [place], [place] [address] PCP - General 12/14/08 documented as of this encounter
--- OUTSIDE RECORDS SUMMARY | 2025-05-17 20:20 | XMS_ITS | Encounter Summary ---
Author Organization [facility] Address [address] [place] [address] Care Team Providers Care Commercial Assistant Name Role Phone DEMETRIUS Mcguire Sr., Michael Dave Primary Care Pro vider Encounter Details Date Type Department Care Team (Late st Contact Info) Description 03/20/2003 Outpatient Historical [facility] Ear, Nose and Throat [address] [place] [address] [place] [address] Social History Tobacco Use Types Packs/Day Years Used Date Smoking Tobacco: Never Assessed Comments Unknown Sex and Gender Information Value Date Recorded Sex Assigned at Not on file Legal Sex Female 5:11 AM OPEN HEARTH STOCKYARD SUPERVISOR Gender Identity Not on file Sexual Orientation Not on file documented as of this encounter Plan of Treatment Not on file documented as of this encounter Visit Diagnoses Not on filedocumented in this encounter Care Teams Commercial Assistant Relationship Specialty Start Date End Date Husam Mcguire Sr., FNP [address] [place] [address] PCP - General 12/14/08 documented as of this encounter
--- OUTSIDE RECORDS SUMMARY | 2025-05-17 20:20 | XMS_ITS | Encounter Summary ---
Author Organization [facility] Address [address] [place] [address] Care Team Providers Care Pack Operator Name Role Phone DEMETRIUS Mcguire Sr., [...] file Legal Sex Female 5:11 AM FIRE MARSHAL REFINERY Gender Identity Not on file Sexual Orientation Not on file documented as of this encounter Plan of Treatment Not on file documented as of this encounter Visit Diagnoses Not on filedocumented in this encounter Care Teams Pack Operator Relationship Specialty Start Date End Date Husam Mcguire Sr., FNP [address] [place] [address] PCP - General 12/14/08 documented as of this encounter
--- OUTSIDE RECORDS SUMMARY | 2025-05-17 20:20 | XMS_ITS | Encounter Summary ---
Author Organization [facility] Address [address] [place] [address] Care Team Providers Care Proteomics Scientist Name Role Phone DEMETRIUS Mcguire Sr., Michael Dave Primary Care Pro vider Encounter Details Date Type Department Care Team (Latest Contact Info) Description 09/25/2005 Outpatient Historical [facility] Ear, Nose and Throat [address] [place] [address] [place] [address] Divina Bocanegra, PhD NO ADDRESS ON FILE SENSORY HEARING LOSS (Primary Dx) Social History Tobacco Use Types Packs/Day Years Used Date Smoking Tobacco: Never Assessed Comments Unknown Sex and Gender Information Value Date Recorded Sex Assigned at Not on file Legal Sex Female 5:11 AM BID CLERK Gender Identity Not on file Sexual Orientation Not on file documented as of this encounter Plan of Treatment Not on file documented as of this encounter Visit Diagnoses Diagnosis Sensory hearing loss, bilateral- Primary documented in this encounter Care Teams Proteomics Scientist Relationship Specialty Start Date End Date Husam Mcguire Sr., FNP [address] [place] [address] PCP - General 12/14/08 documented as of this encounter
--- OUTSIDE RECORDS SUMMARY | 2025-05-17 20:20 | XMS_ITS | Encounter Summary ---
Author Organization [facility] Address [address] [place] [address] Care Team Providers Care Chore Tender Name Role Phone DEMETRIUS Mcguire Sr., Michael Dave Primary Care Pro vider Encounter Details Date Type Department Care Team (Late st Contact Info) Description 01/04/2002 Outpatient Historical [facility] Ear, Nose and Throat [address] [place] [address] [place] [address] Social History Tobacco Use Types Packs/Day Years Used Date Smoking Tobacco: Never Assessed Comments Unknown Sex and Gender Information Value Date Recorded Sex Assigned at Not on file Legal Sex Female 5:11 AM AIR LIAISON AND SPECIAL STAFF Gender Identity Not on file Sexual Orientation Not on file documented as of this encounter Plan of Treatment Not on file documented as of this encounter Visit Diagnoses Not on filedocumented in this encounter Care Teams Chore Tender Relationship Specialty Start Date End Date Husam Mcguire Sr., FNP [address] [place] [address] PCP - General 12/14/08 documented as of this encounter
--- OUTSIDE RECORDS SUMMARY | 2025-05-17 20:20 | XMS_ITS | Encounter Summary ---
Author Organization [facility] Address [address] [facility] Attn: [place] [address] Care Team Providers Care Dramatic Critic Name Role Phone DEMETRIUS Mcguire Sr., Michael Dave Primary Care Pro vider Encounter Details Date Type Department Care Team (Late st Contact Info) Description 03/02/2002 Outpatient Historical Shiv Joyce [address] [place], [place] [address] Social History Tobacco Use Types Packs/Day Years Used Date Smoking Tobacco: Never Assessed Comments Unknown Sex and Gender Information Value Date Recorded Sex Assigned at Not on file Legal Sex Female 5:11 AM CITY PLANNING AIDE Gender Identity Not on file Sexual Orientation Not on file documented as of this encounter Plan of Treatment Not on file documented as of this encounter Visit Diagnoses Not on filedocumented in this encounter Care Teams Dramatic Critic Relationship Specialty Start Date End Date Husam Mcguire Sr., FNP [address] [place] [address] PCP - General 12/14/08 documented as of this encounter
--- OUTSIDE RECORDS SUMMARY | 2025-05-17 20:20 | XMS_ITS | Encounter Summary ---
Author Organization [facility] Address [address] [place] [address] Care Team Providers Care Marketing Systems Manager Name Role Phone DEMETRIUS Mcguire Sr., Michael Dave Primary Care Pro vider Encounter Details Date Type Department Care Team (Latest Contact Info) Description 02/15/2002 Outpatient Historical [facility] Ear, Nose and Throat [place] [address] [place] [address] Cathy Funez AU.D NO ADDRESS ON FILE SENSORNEUR HEAR LOSS NOS (Primary Dx) Social History Tobacco Use Types Packs/Day Years Used Date Smoking Tobacco: Never Assessed Comments Unknown Sex and Gender Information Value Date Recorded Sex Assigned at Not on file Legal Sex Female 5:11 AM PROGRAM OFFICER Gender Identity Not on file Sexual Orientation Not on file documented as of this encounter Plan of Treatment Not on file documented as of this encounter Visit Diagnoses Diagnosis Sensorineural hearing loss, unspecified- Primary documented in this encounter Care Teams Marketing Systems Manager Relationship Specialty Start Date End Date Husam Mcguire Sr., FNP [address] [place] [address] PCP - General 12/14/08 documented as of this encounter
--- OUTSIDE RECORDS SUMMARY | 2025-05-17 20:20 | XMS_ITS | Encounter Summary ---
Author Organization [facility] Address [address] [place] [address] Care Team Providers Care Warranty Coordinator Name Role Phone DEMETRIUS Mcguire Sr., Michael Dave Primary Care Pro vider Encounter Details Date Type Department Care Team (Latest Contact Info) Description 10/03/2002 Outpatient Historical [facility] Ear, Nose and Throat [address] [place] [address] [place] [address] Edgar Kyle MD [address] [address] SENSORNEUR HEAR LOSS NOS (Primary Dx) Social History Tobacco Use Types Packs/Day Years Used Date Smoking Tobacco: Never Assessed Comments Unknown Sex and Gender Information Value Date Recorded Sex Assigned at Not on file Legal Sex Female 5:11 AM RN EMERGENCY ROOM Gender Identity Not on file Sexual Orientation Not on file documented as of this encounter Plan of Treatment Not on file documented as of this encounter Visit Diagnoses Diagnosis Sensorineural hearing loss, unspecified- Primary documented in this encounter Care Teams Warranty Coordinator Relationship Specialty Start Date End Date Husam Mcguire Sr., FNP [address] [place], [place] [id number] PCP - General 12/14/08 documented as of this encounter
--- OUTSIDE RECORDS SUMMARY | 2025-05-17 20:20 | XMS_ITS | Encounter Summary ---
Author Organization [facility] Address [address] [place] [address] Care Team Providers Care Head Of Training And Development Name Role Phone DEMETRIUS Mcguire Sr., Michael Dave Primary Care Pro vider Encounter Details Date Type Department Care Team (Latest Contact Info) Description 07/31/2002 Outpatient Historical [facility] Ear, Nose and Throat [address] [place] [address] [place] [address] Edgar Kyle MD [address] [address] SENSORNEUR HEAR LOSS NOS (Primary Dx) Social History Tobacco Use Types Packs/Day Years Used Date Smoking Tobacco: Never Assessed Comments Unknown Sex and Gender Information Value Date Recorded Sex Assigned at Not on file Legal Sex Female 5:11 AM WEBSITE PROGRAMMER Gender Identity Not on file Sexual Orientation Not on file documented as of this encounter Plan of Treatment Not on file documented as of this encounter Visit Diagnoses Diagnosis Sensorineural hearing loss, unspecified- Primary documented in this encounter Care Teams Head Of Training And Development Relationship Specialty Start Date End Date Husam Mcguire Sr., FNP [address] [place], [place] [address] PCP - General 12/14/08 documented as of this encounter
--- OUTSIDE RECORDS SUMMARY | 2025-05-17 20:20 | XMS_ITS | Encounter Summary ---
Author Organization [facility] Address [address] [place] [address] Care Team Providers Care Shaker Operator Name Role Phone DEMETRIUS Mcguire Sr., Michael Dave Primary Care Pro vider Encounter Details Date Type Department Care Team (Latest Contact Info) Description 05/14/2005 Outpatient Historical [facility] Ear, Nose and Throat E [place] 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
--- OUTSIDE RECORDS SUMMARY | 2025-05-17 20:20 | XMS_ITS | Encounter Summary ---
Author Organization [facility] Address [address] [place] [address] Care Team Providers Care Commercial Credit Specialist Name Role Phone DEMETRIUS Mcguire Sr., Michael Dave Primary Care Pro vider Encounter Details Date Type Department Care Team (Latest Contact Info) Description 06/19/2002 Outpatient Historical [facility] Ear, Nose and Throat [address] [place] 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
--- OUTSIDE RECORDS SUMMARY | 2025-05-17 20:20 | XMS_ITS | Encounter Summary ---
Author Organization [facility] Address [address] [place] [address] Care Team Providers Care Brush Painter Name Role Phone DEMETRIUS Mcguire Sr., Michael Dave Primary Care Pro vider Encounter Details Date Type Department Care Team (Latest Contact Info) Description 12/22/2001 Outpatient Historical [facility] Head and Neck Surgery-E [place] [address] [place] [address] Shiv Joyce [address] [place], [place] [id number] CHR NONSUP OM NOS/NEC (Primary Dx) Social History Tobacco Use Types Packs/Day Years Used Date Smoking Tobacco: Never Assessed Comments Unknown Sex and Gender Information Value Date Recorded Sex Assigned at Not on file 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
--- OUTSIDE RECORDS SUMMARY | 2025-05-17 20:20 | XMS_ITS | Encounter Summary ---
Author Organization [facility] Address [address] [place] [address] Care Team Providers Care Corporate Development Intern Name Role Phone DEMETRIUS Mcguire Sr., Michael Dave Primary Care Pro vider Encounter Details Date Type Department Care Team (Latest Contact Info) Description 05/05/[address] [facility] Ear, Nose and Throat E [place] 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
--- OUTSIDE RECORDS SUMMARY | 2025-05-17 20:20 | XMS_ITS | Encounter Summary ---
Author Organization [facility] Address [address] [place] [address] Care Team Providers Care Inspector Process Name Role Phone DEMETRIUS Mcguire Sr., Michael Dave Primary Care Pro vider Encounter Details Date Type Department Care Team (Latest Contact Info) Description 07/24/2002 Outpatient Historical [facility] Operating Room [address] [place] [address] Edgar Kyle MD [address] [address] SENSORNEUR HEAR LOSS NOS (Primary Dx) Social History Tobacco Use Types Packs/Day Years Used Date Smoking Tobacco: Never Assessed Comments Unknown Sex and Gender Information Value Date Recorded Sex Assigned at Not on file Legal 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
--- OUTSIDE RECORDS SUMMARY | 2025-05-17 20:20 | XMS_ITS | Encounter Summary ---
Author Organization [facility] Address [address] [place] [address] Care Team Providers Care Pie Bottomer Name Role Phone DEMETRIUS Mcguire Sr., Michael Dave Primary Care Pro vider Encounter Details Date Type Department Care Team (Latest Contact Info) Description 10/25/2006 Outpatient Historical [facility] Ear, Nose and Throat [address] [place] 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
--- OUTSIDE RECORDS SUMMARY | 2025-05-17 20:20 | XMS_ITS | Encounter Summary ---
Author Organization [facility] Address [address] [place] [address] Care Team Providers Care Humidifier Attendant Name Role Phone DEMETRIUS Mcguire Sr., Michael Dave Primary Care Pro vider Encounter Details Date Type Department Care Team (Late st Contact Info) Description 08/07/2005 Outpatient Historical [facility] Ear, Nose and Throat [address] [place] [address] [place] [address] Social History Tobacco Use Types Packs/Day Years Used Date Smoking Tobacco: Never Assessed Comments Unknown Sex and Gender Information Value Date Recorded Sex Assigned at Not on file Legal Sex Female 5:11 AM SEVERITY OF ILLNESS COORDINATOR Gender Identity Not on file Sexual Orientation Not on file documented as of this encounter Plan of Treatment Not on file documented as of this encounter Visit Diagnoses Not on filedocumented in this encounter Care Teams Humidifier Attendant Relationship Specialty Start Date End Date Husam Mcguire Sr., FNP [address] [place] [address] PCP - General 12/14/08 documented as of this encounter
--- OUTSIDE RECORDS SUMMARY | 2025-05-17 20:20 | XMS_ITS | Clinical Summary ---
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 Gender Identity Not on file Sexual Orientation Not on file Occupation Industry Job Start Date Job End Date Not on file Not on file Not on file Not on file Last Filed Vital Signs Vital Sign Reading Time Taken Comments Blood Pressure 112/72 12/02/2016 10:53 AM CDT Pulse 120 12/02/2016 10:53 AM CDT Temperature 36.7 C (98 F) 10/29/2016 11:32 AM PLUMBING HARDWARE ASSEMBLER Respiratory Rate 18 10/29/2016 11:32 AM PLUMBING HARDWARE ASSEMBLER Oxygen Saturation 98% 10/29/2016 11:32 AM PLUMBING HARDWARE ASSEMBLER Inhaled Oxygen Concentration - - Weight 47.6 [...] 02/28/2001, 2000 Medical Devices Implanted Type Area Health Education Director Device Identifier Shelf Expiration Date Model / Serial / Lot Pros Cochlear Hires 90k 1j Ci-1400-01 - [id number] Implanted:Qty: 1 on 11/12/2011 by Jay Ferris DO at [facility] Ear Left: Ear [employer]V [employer] 09/13/2013 CI-1400-01 / [id number] / [id number] Wire K Trocar Pt [id number] 292.16 - [id number] Implanted:Qty: 2 on 10/08/2016 by Roger Bland MD at [facility] Wire Left: Arm SYNTHES STRATEC 292.16 / / [id number] [place] [address] MEDICAID [facility] MEDICAID Advance Directives For more information, please contact: [phone] * Full Code (Latest Code Status on [...] 7:38 AM 11/12/2011 10:28 AM Care Teams Linux Support Engineer Relationship Specialty Start Date End Date Shayla Pineda, DEMETRIUS [address] [place] [address] PCP - General 12/14/08
--- OUTSIDE RECORDS SUMMARY | 2025-05-17 20:20 | XMS_ITS | Encounter Summary ---
Author Organization [facility] Address [address] [place] [address] Care Team Providers Care Dumper Bailer Operator Name Role Phone DEMETRIUS Mcguire Sr., Michael Dave Primary Care Pro vider Encounter Details Date Type Department Care Team (Late st Contact Info) Description 06/10/2007 Outpatient Historical [facility] Ear, Nose and Throat [address] [place] [address] [place] [address] Lakeisha Chapman AU.D 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
--- OUTSIDE RECORDS SUMMARY | 2025-05-17 20:20 | XMS_ITS | Encounter Summary ---
Author Organization [facility] Address [address] [place] [address] Care Team Providers Care Naval Aircrewman Helicopter Name Role Phone DEMETRIUS Mcguire Sr., Michael Dave Primary Care Pro vider Encounter Details Date Type Department Care Team (Latest Contact Info) Description 09/11/2004 Outpatient Historical [facility] Ear, Nose and Throat [address] [place] [address] [place] [address] Valentín Roberts MD NO ADDRESS ON FILE SENSORY HEARING LOSS (Primary Dx) Social History Tobacco Use Types Packs/Day Years Used Date Smoking Tobacco: Never Assessed Comments Unknown Sex and Gender Information Value Date Recorded Sex Assigned at Not on file Legal Sex Female 5:11 AM SOLUTION DIRECTOR Gender Identity Not on file Sexual Orientation Not on file documented as of this encounter Plan of Treatment Not on file documented as of this encounter Visit Diagnoses Diagnosis Sensory hearing loss, bilateral- Primary documented in this encounter Care Teams Naval Aircrewman Helicopter Relationship Specialty Start Date End Date Husam Mcguire Sr., FNP [address] [place] [address] PCP - General 12/14/08 documented as of this encounter
--- OUTSIDE RECORDS SUMMARY | 2025-05-17 20:20 | XMS_ITS | Encounter Summary ---
Author Organization [facility] Address [address] [place] [address] Care Team Providers Care Climatologist Name Role Phone DEMETRIUS Mcguire Sr., Michael Dave Primary Care Pro vider Encounter Details Date Type Department Care Team (Latest Contact Info) Description 07/24/[address] [facility] Ear, Nose and Throat E [place] 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
[2025-05-17 20:43] LABS: Hematocrit 42.7 % (36-47); Hemoglobin 14.60 g/dL (11.27-16.99); Mean Corpuscular HGB Conc 34.2 g/dL (30-55); Mean Corpuscular Hemoglobin 28.5 pg (27-33); Mean Corpuscular Volume 83.4 fl (85-98); Nucleated Red Blood Cells % 0 %; Platelet Count 269 10^3/cmm (157-399); Red Blood Count 5.12 10^6/uL (3.85-5.65); White Blood Count 10.67 10^3/uL (3.29-11.43)
[2025-05-17 21:00] LABS: Alanine Aminotransferase 11 U/L (0-33); Albumin Level 4.4 g/dL (3.5-5.2); Alkaline Phosphatase 48 U/L (35-105); Anion Gap 15.8 (5-19); Aspartate Amino Transferase 15 U/L (0-32); Blood Urea Nitrogen 4 mg/dL (6-20); Calcium 9.4 mg/dL (8.5-10.5); Carbon Dioxide 24 mmol/L (22-29); Chloride 100 mmol/L (98-107); Creatinine Clr Calc Pharmacy 120.4609; Globulin 3.4 g/dL (1.3-4.6); Glucose 117 mg/dL (65-115); Lipase 18 U/L (13-60); Osmolality Calculated 280 mOsm/kg (285-295); Potassium 3.8 mmol/L (3.5-5.1); Sodium 136 mmol/L (136-145); Total Protein 7.8 g/dL (6.6-8.7)
--- NOTE | 2025-05-17 21:26 | USR_ITS ---
PROCEDURE INFORMATION: Exam: US First Trimester, Transabdominal and US , Transvaginal Exam date and time: 05/17/2025 10:23 PM Age: 24 years old Clinical indication: complicated by abdominal or pelvic pain; Generalized abdominal pain; First trimester (<14 weeks 0 days); Gestational age or lmp: 5w 2d by lmp; ; G2-p1-a0-l1 with generalized abd pain, no vag bleed. LABS AND CLINICAL REPORTS: Last menstrual period start date: 04/10/2025 Gestational age (Established): 5 w 2 d Estimated due date (Established): 01/15/2026 TECHNIQUE: Imaging protocol: Real-time transabdominal obstetrical ultrasound of the maternal pelvis and a first trimester , less than 14 weeks 0 days, with image documentation. Transvaginal imaging was used for better evaluation of the fetus, adnexa, and/or cervix. COMPARISON: US OB limited [id number] 08/08/2022 8:18 AM FINDINGS: GESTATION: Gestation: Intrauterine gestation is visualized. pole is visualized. Yolk sac is visualized. A single viable intrauterine gestation is present. Embryo/ cardiac activity (BPM): 117 bpm. heart rate measures 117 bpm. Extra-embryonic membranes/Placenta: Unremarkable. No subchorionic bleed. Amniotic/Chorionic fluid: Amniotic and extra-amniotic fluid are normal for gestational age. BIOMETRY: Gestational age (AUA): 5 w 5 d Estimated due date (AUA): 01/12/2026 Dupree rump length (CRL): Dupree-rump length measures 0.22- 0.26 cm, consistent with 5 week 6 day gestational age. MATERNAL: Uterus: Uterus measures 9.16 cm x 4.83 cm x 4.98 cm. The uterus measures 9.2 x 5.0 x 4.8 cm. The uterus is a retroflexed. Endometrial bilayer measures up to 0.8 cm. Cervix: Unremarkable. Endocervical canal is closed. Right ovary/adnexa: Right ovary measures 3.2 cm x 2.5 cm x 1.6 cm. Right ovarian volume is 6.7 mL. The right ovary measures 3.2 x 2.5 x 1.6 cm with a volume of 7 mL. Left ovary/adnexa: Left ovary measures 3.12 cm x 2.5 cm x 1.6 cm. Left ovarian volume is 8.8 mL. The left ovary measures 3.1 x 2.5 x 2.2 cm with a volume of 9 mL. Intraperitoneal space: Small volume simple attenuating free pelvic fluid is noted. Impression new small volume free pelvic fluid. Other findings: Color Doppler flow in both ovaries is normal. No evidence of ovarian torsion. Physiologic follicles are noted in bilateral ovaries. US/US OB <= 14 weeks fetus [id number] IMPRESSION: 1. Single viable intrauterine gestation with a crown rump length consistent with a 5 week 5-6 day gestational age. heart rate of 117 bpm. 2. Retroflexed uterus. 3. Normal bilateral ovaries.
[2025-05-17] MEDS: metoclopramide 5 mg/mL SDV 2 mL 10 MG IVP (21:37)
[2025-05-17] MEDS: diphenhydrAMINE 50 mg/mL SDV 1mL IVP (21:38)
[2025-05-17 21:39] VITALS: BP 105/54; PULSE 69; O2SAT 98
[2025-05-17 22:00] VITALS: BP 94/60; PULSE 76; O2SAT 100
[2025-05-17 22:30] VITALS: PULSE 78; O2SAT 100
[2025-05-18 00:10] VITALS: BP 92/62; PULSE 74; O2SAT 100
--- NOTE | 2025-05-18 00:23 | ED_ITS ---
HPI - Abdominal Pain 2 General: Chief Complaint: Abdominal Pain Stated Complaint: Vomiting up blood, 6 or 7 wks preg. Time Seen by Provider: 05/17/25 20:42 Source: patient Mode of arrival: ambulatory Limitations: no limitations History of Present Illness: Patient is a 24-year-old female who presents to the emergency department with complaints of nausea and vomiting in , stating she is about 6 to 7 weeks by last normal menstrual period. Was seen here in the emergency department recently for the same symptoms, had normal workup but ultimately she was not far along enough for her ultrasound to be warranted at that time. Complaining of persistent nausea vomiting which she states is normal for her, but she would also like ultrasound now done. She states that she is not set to see OB for another couple weeks. States that she is having diffuse crampy abdominal pain, no vaginal bleeding, lightheadedness or syncopal episodes, palpitations or chest pain. MD elicited complaint: abdominal pain Onset (ago): day(s) Pain Consistency: constant Location: Diffuse Severity: similar to previous episodes Quality: cramping Associated Symptoms: Reports GI cramping, nausea and vomiting; Denies bloating, change in stool character, chills, constipation, diarrhea, dysuria, fever(s) and hematochezia Related Data Date of Last Menstrual Period: 04/10/25 Home Medications ?Medication ?Instructions ?Recorded ?Confirmed acetaminophen 325 mg tablet 325 mg PO QID PRN Fever Or Pain 02/26/25 04/20/25 (Tylenol) norethindrone (contraceptive) 0.35 0.35 mg PO DAILY 04/20/25 mg tablet (Incassia) Previous Rx's ?Medication ?Instructions ?Recorded promethazine 25 mg tablet 25 mg PO Q6H PRN nausea and 02/26/25 vomiting #20 tabs Allergies Allergy/AdvReac Type Severity Reaction Status Date / Time caramel Allergy ALGY-Rash Verified 04/20/25 09:22 [place] Water AdvReac ADR-Vomitin Uncoded 04/20/25 09:22 g Review of Systems 2 General: Reports: 10 or more systems reviewed and unremarkable except in HPI and below Const: Denies: fever(s), chills, change in appetite, change in weight or diaphoresis ENMT: Denies: throat pain or hoarseness Card: Denies: chest pain, palpitations or lightheadedness Resp: Denies: dyspnea, productive cough or wheezing GI: Reports: abdominal pain, nausea, vomiting and GI cramping; Denies: diarrhea, constipation, bloating, change in stool character or hematochezia : Denies: flank pain, difficulty voiding, dysuria, urinary frequency, urinary urgency, vaginal bleeding or vaginal discharge Musc: Denies: neck pain or back pain Skin/Breast: Denies: rash or new lesions Neuro: Denies: headache(s) or dizziness PFSH ED 2 PFSH: Surgical History S/P exploratory laparotomy Jejunal resection, Meckel's diverticulectomy and drainage of intra-abdominal abscess-[place] [id number] Social History Smoking and tobacco/nicotine status: never used tobacco/nicotine Female Reproductive History: Date of last menstrual period: 04/10/25 Physical Exam 2 Const: COMMON NORMALS: no acute distress, average body habitus, patient oriented x3, no limitations, healthy appearing, alert and well nourished G ENERAL APPEARANCE: cooperative and comfortable ORIENTATION/CONSCIOUSNESS: Yes awake OTHER: Nontoxic-appearing Neck/C-Spine: COMMON NORMALS: full ROM, supple, no meningeal signs and no JVD Resp: COMMON NORMALS: normal respiratory effort, No retractions, No use of accessory muscles and clear to auscultation bilaterally AUSCULTATION: clear to auscultation bilaterally, no crackles, no rales, no rhonchi and no wheezes Cardio: COMMON NORMALS: no JVD, regular rate, regular rhythm, No gallops present (Cardio), No clicks present (Cardio), No murmurs present (Cardio), No rub (Cardio) and Peripheral pulses 2+ throughout RATE: regular rate R HYTHM: regular rhythm PERIPHERAL PULSES: Peripheral pulses 2+ throughout GI: COMMON NORMALS: Normal to inspection, nondistended, normoactive bowel sounds present, Soft to palpation, non-tender, No hepatosplenomegaly present and no masses AUSCULTATION: Yes normoactive bowel sounds PALPATION: Yes Soft to palpation, No Guarding due to palpation present (GI), No Rigid due to palpation and Yes No hepatosplenomegaly present RECTAL EXAM: deferred : COMMON NORMALS: Yes no CVA tenderness BLADDER/KIDNEY EXAM: Yes no CVA tenderness Back/Pelvis: COMMON NORMALS: no CVA tenderness Extremity: COMMON NORMALS: normal to inspection and full ROM Neuro: COMMON NORMALS: patient oriented x3, moves all extremities, no focal motor deficits and no sensory deficits noted SENSORIUM/ORIENTATION: Yes alert MENINGEAL SIGNS: Yes no meningeal signs Psych: COMMON NORMALS: mental status grossly normal, cooperative and speech normal SPEECH: Yes normal speech Skin: COMMON NORMALS: no rashes or lesions noted GENERAL SKIN EXAM: no rashes or lesions noted Course 2 Vital Signs: Vital signs: Vital Signs Temperature 98.4 F 05/17/25 20:20 Pulse Rate 74 05/18/25 00:10 Respiratory Rate 16 05/17/25 20:20 Blood Pressure 92/62 05/18/25 00:10 Pulse Oximetry 100 05/18/25 00:10 Oxygen Delivery Me thod Room Air 05/17/25 22:30 MDM - Abdominal Pain Medical Decision Making Patient presenting with persistent nausea and vomiting that has been for weeks, confirmed at home as well as previous test in the emergency department in which she was seen on 05/05 and had normal labs and discharged home. She is not set to see OB for another couple weeks. A couple of episodes of nausea vomiting today, and some diffuse abdominal cramping. Labs obtained and again do not show any acute abnormality. Ultrasound is obtained at this time, showing viable intrauterine gestation with no ectopic or other emergent process. She is given Reglan and Benadryl here in the emergency department, as well as fluids and states that she feels quite a bit better. I suspect that these are physiologic and there are no emergent concerns at this time, though she is given return precautions and told to follow-up with OB. Lab Data 05/17/25 20:33 05/17/25 20:33 Labs/Radiology: Radiology Impressions Ultrasound 05/17/25 21:26 IMPRESSION: 1. Single viable intrauterine gestation with a crown rump length consistent with a 5 week 5-6 day gestational age. heart rate of 117 bpm. 2. Retroflexed uterus. 3. Normal bilateral ovaries. Laboratory Results WBC 10.67 10^3/uL (3.29-11.43) 05/17/25 20: RBC 5.12 10^6/uL (3.85-5.65) 05/17/25 20: Hgb 14.60 g/dL (11.27-16.99) 05/17/25 20: Hct 42.7 % (36-47) 05/17/25 20: MCV 83.4 fl (85-98) L 05/17/25 20: MCH 28.5 pg (27-33) 05/17/25 20: MCHC 34.2 g/dL (30-55) 05/17/25 20: RDW 11.8 % (12.1-15.1) L 05/17/25: Plt Count 269 10^3/cmm (157-399) 05/17/25: MPV 10.3 fL (7.4-10.4) 05/17/25 20: Neut % (Auto) 72.1 % 05/17/25 20: Lymph % (Auto) 18.5 % 05/17/25 20: Josephine % (Auto) 7.7 % 05/17/25 20: Eos % (Auto) 0.8 % 05/17/25: Baso % (Auto) 0.5 % 05/17/25: Neut # (Auto) 7.70 10^3/uL (1.8-7.7) 05/17/25: Lymph # (Auto) 2.0 10^3/uL (0.8-4.8) 05/17/25: Josephine # (Auto) 0.8 10^3/uL (0.2-0.9) 05/17/25 20: Eos # (Auto) 0.1 10^3/uL (0.0-0.8) 05/17/25: Baso # (Auto) 0.1 10^3/uL (0.0-0.1) 05/17/25: Nucleated RBC % (auto) 0 % 05/17/25: Nucleated RBCs # 0.0 /100WBC 05/17/25 20: Sodium 136 mmol/L (136-145) 05/17/25 20: Potassium 3.8 mmol/L (3.5-5.1) 05/17/25 20:33 Chloride 100 mmol/L (98-107) 05/17/25 20:33 Carbon Dioxide 24 mmol/L (22-29) 05/17/25 20:33 Anion Gap 15.8 (5-19) 05/17/25 20:33 BUN 4 mg/dL (6-20) L 05/17/25 20:33 Creatinine 0.6 mg/dL (0.5-0.9) 05/17/25 20:33 GFR Calculation 122.8 mL/min (90-130) 05/17/25 20:33 Glucose 117 mg/dL (65-115) H 05/17/25 20:33 Calculated Osmolality 280 mOsm/kg (285-295) L 05/17/25 20:33 Calcium 9.4 mg/dL (8.5-10.5) 05/17/25 20:33 Total Bilirubin 0.7 mg/dL (0.15-1.2) 05/17/25 20:33 AST 15 U/L (0-32) 05/17/25 20:33 ALT 11 U/L (0-33) 05/17/25 20:33 Alkaline Phosphatase 48 U/L (35-105) 05/17/25 20:33 Total Protein 7.8 g/dL (6.6-8.7) 05/17/25 20:33 Albumin 4.4 g/dL (3.5-5.2) 05/17/25 20:33 Globulin 3.4 g/dL (1.3-4.6) 05/17/25 20:33 Lipase 18 U/L (13-60) 05/17/25 20:33 All radiology interpretation(s) finalized by discharge Discharge Plan Discharge Patient Disposition: Home Clinical Impression: Confirmed intrauterine on ultrasound, Nausea and vomiting during Condition: Stable Prescriptions: No Action norethindrone (contraceptive) [Incassia] 0.35 mg tablet 0.35 mg PO DAILY acetaminophen [Tylenol] 325 mg Tablet 325 mg PO QID PRN (Reason: Fever Or Pain) promethazine 25 mg tablet 25 mg PO Q6H PRN (Reason: nausea and vomiting) Qty: 20 0RF Discharge Orders: Discharge ED (Routine); Ordered 05/17/25 Ordered By: Dilan Costa Referrals: Mark Galdamez MD [Primary Care Provider, Family Practice] Patient Instructions: Patient Portal & [place] Instructions Activity Restrictions/Additional Instructions: Discharge Instructions: NVP Diagnosis: Intrauterine confirmed by ultrasound. Nausea and vomiting during (NVP). Laboratory results reassuring. Discharge Instructions: - Diet and Lifestyle Modifications - Advise small, frequent meals throughout the day; avoid large meals and prolonged fasting. - Emphasize bland, high-protein, and low-fat foods (e.g., bananas, rice, applesauce, toast). - Encourage increased fluid intake, preferably between meals rather than with meals, to maintain hydration. - Identify and avoid specific triggers (foods with strong odors, spicy, fatty, or acidic foods, and activities that worsen symptoms). - Recommend minimizing exposure to strong smells, crowded or warm areas, and stress. Advise getting out of bed slowly and brushing teeth after meals rather than first thing in the morning.[1] https://[employer]/retrieve/pii/K0115-4003(53)14701-7 [2] https://pmc.ncbi.nlm.nih.gov/articles/pmid/51451261/ - Non-Pharmacologic Therapies - Heather supplementation (250 mg capsule up to four times daily) may be considered for persistent symptoms.[1] https://[employer]/retrieve/pii/Q1035-9542(48)49919-0 - Acupressure and acupuncture have been studied but show inconsistent benefit.[ 2] https://pmc.ncbi.nlm.nih.gov/articles/pmid/34284920/ - Pharmacologic Therapy - First-line: Vitamin B6 (pyridoxine) 10?25 mg orally every 8 hours, with or without doxylamine (10?12.5 mg orally at bedtime, and 12.5 mg in the morning and afternoon as needed). Combination products (doxylamine/pyridoxine 10 mg/10 mg or 20 mg/20 mg) are safe and well tolerated.[1] https://[employer]/retrieve/pii/D9441-3997(01)02984-8 [3] https://pubmed.ncbi.nlm.nih.gov/38784339 [4] https://www.nej.org/doi/full/10.1056/WYANjj5169071 - If symptoms persist, H1-receptor antagonists (e.g., promethazine, dimenhydrinate) are considered safe alternatives.[1] https://[employer]/retrieve/pii/G7798-0798(51)50916-9 - For refractory cases, metoclopramide or ondansetron may be considered, with ondansetron reserved for severe or persistent symptoms and used with caution before 10 weeks gestation due to possible, though unproven, risk of congenital heart defects.[1] https://[employer]/retrieve/pii/F[address]403-3452(13)37303-0 [4] https://www.sdj.org/doi/full/10.1056/XBWRsn8987954 - Early initiation of therapy is recommended to prevent progression to hyperemesis gravidarum.[1] https://[employer]/retrieve/pii/Q5408-2673(81)46860-2 [3] https://pubmed.ncbi.nlm.nih.gov/41922238 [5] https://pubmed.ncbi.nlm.nih.gov/00601211 [6] https://pubmed.ncbi.nlm.nih.gov/21867770 - Hydration and Nutrition - Emphasize the importance of maintaining oral hydration and adequate caloric intake. - If unable to tolerate oral intake or if symptoms worsen (e.g., persistent vomiting, inability to keep fluids down, signs of dehydration), prompt medical reassessment is warranted.[1] https://[employer]/retrieve/pii/K1148-9855(87)51205-0 [2] https://pmc.ncbi.nlm.nih.gov/articles/pmid/40085921/ [7] https://doi.org/10.85398/ajg.6822538056647122 - Follow-Up - Outpatient follow-up with obstetrics as scheduled. - Escalation of care (including laboratory reassessment and possible hospitalization) is indicated for signs of dehydration, weight loss, or inability to tolerate oral intake.[1] https://[employer]/retrieve/pii/G6931-9363(05)47653-2 [2] https://pmc.ncbi.nlm.nih.gov/articles/pmid/86635657/ [7] https://doi.org/10.70877/ajg.6626535167711612 - Return Precautions - Return to the emergency department or contact obstetric care provider for: - Inability to tolerate oral fluids for more than 24 hours - Signs of dehydration (dizziness, decreased urination, dry mouth) - Persistent vomiting with inability to keep down medications - Abdominal pain, fever, or vaginal bleeding - Any other concerning symptoms Patient Education - Nausea and vomiting are common in early and usually resolve by 20 weeks gestation. - Early treatment improves outcomes and reduces risk of complications. - Most therapies recommended are considered safe in by the [place] [employer] and the [place] [employer].[1] https://[employer]/retrieve/pii/L7124-9041(18)78159-8 [3] https://pubmed.ncbi.nlm.nih.gov/36107323 [5] https://pubmed.ncbi.nlm.nih.gov/99100353 [4] https://www.nejm.org/doi/full/10.1056/JLQCch4242071 [2] https://pmc.ncbi.nlm.nih.gov/articles/pmid/51336227/ References * [facility] Clinical Practice Update on -Related Gastrointestinal and Liver Disease: Expert Review https://[employer]CA/retrieve/pii/C4791-6680(92)50766-6 . Cait S, Malathi Y, Oconnell LS, Thomas J. Gastroenterology. 202;167(5):4026-3288. doi:10.1053/j.gastro.2023..014. * Heartburn, Nausea, and Vomiting During https://pmc.ncbi.nlm.nih.gov/articles/pmid/22109098/ . Tal Veloz, Alfredo Harper. The [place] Journal of Gastroenterology. 2021;117(10S):10-15. doi:10.92170/ajg.4954195150088503. * ACOG Practice Bulletin No. 189 Summary: Nausea and Vomiting of https://pubmed.ncbi.nlm.nih.gov/39072714 . Obstetrics and Gynecology. 2018;131(1):190-193. doi:10.1097/AOG.3609619992629716. * Nausea and Vomiting in https://www.nej.org/doi/full/10.1056/OXRJrv1282854 . Ambrose LUX. The [place] Journal of Medicine. 2010;363(16):1544-50. doi:10.1056/ZCSDtg9877888. * Practice Bulletin No. 153: Nausea and Vomiting of https://pubmed.ncbi.nlm.nih.gov/74472740 . Obstetrics and Gynecology. 2015;126(3):e12-e24. doi:10.1097/AOG.5772538529237211. * Practice Bulletin Summary No. 153: Nausea and Vomiting of https://pubmed.ncbi.nlm.nih.gov/49931353 . Obstetrics and Gynecology. 2015;126(3):687-688. doi:10.1097/01.AOG.1216354492.15384.19. * Hyperemesis Gravidarum and Nutritional Support https://doi.org/10.57625/ajg.1140758863643464 . Magdi JR, Shukri , Bonita AMADOR. The [place] Journal of Gastroenterology. 2021;117(10S):2-9. doi:10.20900/ajg.9789109296999900. Print Language: Occitan Coding Level of Care Code ED Pelt Dropper for Logan [place]
== END 2025-05-18 00:11 | disposition home or self-care (01) ==
PROVIDERS: Emergency Medicine; Emergency Provider Physician Assistant; PCP Family Medicine
DX: O21.8 Other vomiting complicating pregnancy (principal); Z3A.01 Less than 8 weeks gestation of pregnancy
CPT/HCPCS: 36415; 76801; 80053; 83690; 85025; 96374; 96375; 99284; J1200; J2765; J7030